=== PATIENT | female | born 1980 | race Caucasian/White ===

== ENCOUNTER 2022-06-06 13:57 | Emergency (ER) | payer BC ==
[2022-06-06] MEDS ORDERED: HYDROMORPHONE HCL 1 MG/ML INJ ONE ×3 (15:07→18:24)
[2022-06-06] MEDS ORDERED: FAMOTIDINE 20 MG/2 ML VIAL IV ONE (15:08)
[2022-06-06] MEDS ORDERED: ONDANSETRON 4 MG/2 ML VIAL ONE (15:08)
[2022-06-06] MEDS ORDERED: NA CHLORIDE 0.9% 1,000 ML ONE ×3 (15:08→20:14)
[2022-06-06 15:35] LABS: Absolute Lymphocytes (CBC) 1.2 K/uL (0.7-4.9); Hematocrit 43.1 % (36.0-45.0); Lymphocytes % 9.3 % (15.3-44.8); MCV 84.5 fL (80-100); MPV 7.3 fL (7.6-11.3)
[2022-06-06 16:46] LABS: Albumin 2.8 g/dL (3.4-5.0); Bilirubin Total 0.4 mg/dL (0.2-1.0); Protein, Total 6.3 g/dL (6.4-8.2)
[2022-06-06 16:47] LABS: Magnesium 1.8 mg/dL (1.8-2.4); Potassium 3.7 mmol/L (3.5-5.1)
[2022-06-06 17:17] LABS: Urine Blood Negative (Negative); Urine Glucose Negative (Negative); Urine Protein Negative (Negative); Urine Specific Gravity 1.025 (1.005-1.030)
[2022-06-06 17:35] LABS: Urine Bacteria NONE SEEN /HPF (<20); Urine Mucus 1+ /HPF (NONE SEEN); Urine RBC <5 /HPF (NONE SEEN)
--- NOTE | 2022-06-06 17:42 | RAD REPORT ---
EXAM DESCRIPTION: CT - Abdomen Pelvis W Contrast - 06/06/2022 5:19 pm CLINICAL HISTORY: Abdominal pain, acute, nonlocalized, history of recent hospitalization at outside facility for small bowel obstruction, history of gastric sleeve for bypass, history of hernia repair, history of hysterectomy COMPARISON: No comparisons TECHNIQUE: Biphasic, helical CT imaging of the abdomen and pelvis was performed following 100 ml non -ionic IV contrast. No oral contrast administered. All CT scans are performed using dose optimization technique as appropriate and may include automated exposure control or mA/KV adjustment according to patient size. FINDINGS: Patchy airspace opacities are present in the midportion of the left lower lobe. No pneumot horax or pleural effusion. No cardiomegaly or pericardial effusion. Diffuse fatty infiltration pattern of the liver is present with no focal or suspicious liver lesion. No portal vein abnormality. No spleen or pancreatic abnormality. Symmetric renal function is seen with no hydronephrosis or suspicious renal mass. No pyelonephritis o r acute parenchymal process. Urinary bladder is fully contracted. Uterus is absent. Ovaries are absen t or atrophic. No TRANSPORTATION SUPERVISOR finding seen. No adrenal abnormalities. Gastric surgical changes are noted with no gastric wall thickening or mass. No dilation of the duoden um. At the ligament is Treitz there is onset can rapid dilatation of small mild. Dilated small bowel loops breech 6.5 cm in diameter. In the distal ileum there is a 12 centimeter small bowel dilatation but is a summation of 2 small bowel loops with [id number] anastomosis. Surgical staple lines are pr esent at this site. There is an abrupt transition at the distal ileum in the central mid abdomen. The re are multiple small mesenteric lymph nodes present. A central mesenteric mass is not identified. Ad hesion or internal hernia would be most likely. The ileum is decompressed. Colon is decompressed. The re is diverticulosis without diverticulitis. No free air, pneumatosis, free fluid or focal inflammatory stranding. No bulky lymphadenopathy or m ass. Abdominal wall postsurgical changes are present. No recurrent abdominal wall hernia identifiable . No suspicious bony findings. No vascular abnormality suspected. IMPRESSION: Patient has a very pronounced small bowel obstruction terminating at the distal jejunum, central abdomen. No obstructing mass identified. Adhesion or internal hernia would be most likely. The ileum and colon are decompressed. There are multiple central mesenteric lymph nodes. No free air, pneumatosis or findings of perforation. Bowel ischemia is not suspected. Patchy airspace opacification in the right lower lobe suspicious for pneumonia. This is only partiall y imaged.
--- NOTE | 2022-06-06 18:09 | ER ---
Nurse's Notes [facility] Name: Prabha Booker Age: 42 yrs Sex: Female : 1980 Arrival Date: 06/06/2022 Time: 14:03 Bed 20 Private MD: Ben Cotto S Diagnosis: Small Bowel Obstruction Presentation: 06/06 14:39 Chief complaint: Patient states: PT ADMIT TO [facility] LAST SATURDAY WITH SBO, LEFT bp AMA Y/D, NOW WITH SAME S/S. Coronavirus screen: At this time, the client does not indicate any symptoms associated with coronavirus-19. Ebola Screen: No symptoms or risks identified at this time. Initial Sepsis Screen: Does the patient meet any 2 criteria? HR > 90 bpm. No. Patient's initial sepsis screen is negative. Does the patient have a suspected source of infection? No. Patient's initial sepsis screen is negative. Risk Assessment: Do you want to hurt yourself or someone else? Patient reports no desire to harm self or others. Onset of symptoms is unknown. 14:39 Method Of Arrival: Wheelchair bp 14:39 Acuity: GALINDO 3 bp Triage Assessment: 14:40 General: Appears distressed, uncomfortable, obese, Behavior is cooperative, appropriate bp for age, anxious. Pain: Complains of pain in abdomen. EENT: No deficits noted. Neuro: No deficits noted. Cardiovascular: No deficits noted. Respiratory: No deficits noted. GI: Reports lower abdominal pain, nausea, vomiting. : No signs and/or symptoms were reported regarding the genitourinary system. Derm: No deficits noted. Musculoskeletal: No deficits noted. 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 - Social history:: Smoking status: Patient denies any tobacco usage or history of. Screenin:45 Abuse screen: Denies threats or abuse. Denies injuries from another. Nutritional bp screening: No deficits noted. Tuberculosis screening: No symptoms or risk factors identified. Fall Risk None identified. Assessment: 14:45 General: SEE TRIAGE NOTE. bp 15:30 Reassessment: Patient and/or family updated on plan of care and expected duration. Pain bp level reassessed. Patient states symptoms have improved. 16:30 Reassessment: No changes from previously documented assessment. Patient and/or family bp updated on plan of care and expected duration. Pain level reassessed. 18:00 Reassessment: PT RETURNED FROM CT. bp 18:30 Reassessment: PT REFUSING NGT. TRANSFER INITIATED Patient states symptoms have improved.bp 06/07 01:17 GI: Bowel sounds present X 4 quads. Abd is soft. kd3 Vital Signs: 06/06 14:39 BP 126 / 88; Pulse 100; Resp 16; Temp 97; Pulse Ox 100% ; Weight 83.46 kg; Height 5 ft. bp 7 in. (170.18 cm); 15:30 BP 128 / 80; Pulse 81; Resp 16; Pulse Ox 99% ; bp 16:30 BP 131 / 83; Pulse 93; Resp 16; Pulse Ox 96% ; bp 17:30 BP 136 / 90; Pulse 90; Resp 16; Pulse Ox 98% ; bp 18:30 BP 136 / 75; Pulse 86; Resp 16; Pulse Ox 96% ; bp 14:39 Body Mass Index 28.82 (83.46 kg, 170.18 cm) bp ED Course: 14:03 Patient arrived in ED. mr 14:04 Ben Cotto MD is Private Physician. mr 14:24 Jason Guerrero PA is PHCP. cp 14:24 Jason Gallagher MD is Attending Physician. cp 14:39 Kolby Cortés, TERRANCE is Primary Nurse. bp 14:40 Triage completed. bp 14:40 Arm band placed on. bp 14:45 Patient has correct armband on for positive identification. Bed in low position. Call bp light in reach. Side rails up X2. Adult w/ patient. 15:20 Inserted saline lock: 20 gauge in right antecubital area, using aseptic technique. bp Blood collected. 17:21 CT Abd/Pelvis - IV Contrast Only In Process Unspecified. EDMS 18:35 XRAY Chest (1 view) In Process Unspecified. EDMS 19:59 Connected Jason BENSON with the Doctor from [facility]. mw2 20:23 initiated a transfer with Jessica from [facility]. mw2 21:00 connected Jason BENSON with Dr. Sheth from [facility]. mw2 21:47 Attending Physician role handed off by Jason Gallagher MD ms3 21:47 Cody Vallejo DO is Attending Physician. ms3 22:02 Connected Jason BENSON with Dr. Pollard from [facility]. mw2 22:49 administrative approval given by Jessica Lu/ patient has been accepted to [address] bed 2161/ Dr. Pollard accepted the patient in transfer/report to be called to [phone]. 23:35 Missed attempt(s): 20 gauge Bleeding controlled, band aid applied, catheter tip intact. oe 23:57 Inserted saline lock: 22 gauge in right hand, using aseptic technique. oe 06/07 01:17 No provider procedures requiring assistance completed. Patient transferred, IV remains kd3 in place. Administered Medications: 06/06 15:19 Drug: NS 0.9% 1000 ml Route: IV; Rate: 1 bolus; Site: right antecubital; bp 22:00 Follow up: IV Status: Completed infusion kd3 15:19 Drug: Zofran (Ondansetron) 4 mg Route: IVP; Site: right antecubital; bp 18:02 Follow up: Response: No adverse reaction bp 22:00 Follow up: Response: No adverse reaction kd3 15:19 Drug: Pepcid (famotidine) 20 mg Route: IVP; Site: right antecubital; bp 18:02 Follow up: Response: No adverse reaction bp 22:00 Follow up: Response: No adverse reaction kd3 15:19 Drug: Dilaudid (HYDROmorphone) 1 mg Route: IVP; Site: right antecubital; bp 18:02 Follow up: Response: Pain is decreased bp 16:30 Drug: Dilaudid (HYDROmorphone) 1 mg Route: IVP; Site: right antecubital; bp 18:02 Follow up: Response: No adverse reaction bp 18:30 Drug: NS 0.9% 1000 ml Route: IV; Rate: 1 bolus; Site: right antecubital; bp 20:08 Follow up: IV Status: Completed infusion kd3 21:59 Follow up: IV Status: Completed infusion kd3 18:30 Drug: Dilaudid (HYDROmorphone) 1 mg Route: IVP; Site: right antecubital; bp 21:59 Follow up: Response: No adverse reaction kd3 20:06 Drug: Phenergan (promethazine) 12.5 mg Route: IVP; Site: right antecubital; kd3 21:59 Follow up: Response: No adverse reaction kd3 20:06 Drug: Zosyn (piperacillin-tazobactam) 3.375 grams Route: IVPB; Infused Over: 60 mins; kd3 Site: right antecubital; 21:59 Follow up: IV Status: Completed infusion kd3 20:08 Drug: NS 0.9% 1000 ml Route: IV; Rate: 100 ml/hr; Site: right antecubital; kd3 21:59 Follow up: IV Status: Completed infusion kd3 21:59 Drug: Dilaudid (HYDROmorphone) 1 mg Route: IVP; Site: right antecubital; kd3 06/07 01:17 Follow up: Response: No adverse reaction kd3 06/06 21:59 Drug: Phenergan (promethazine) 12.5 mg Route: IVP; Site: right antecubital; kd3 06/07 01:17 Follow up: Response: No adverse reaction kd3 00:24 Drug: Dilaudid (HYDROmorphone) 1 mg Route: IVP; Site: right hand; kd3 01:17 Follow up: Response: No adverse reaction kd3 01:16 Drug: Phenergan (promethazine) 12.5 mg Route: IVP; Site: right hand; kd3 01:16 Follow up: Response: No adverse reaction kd3 Medication: 06/06 14:45 VIS not applicable for this client. bp Outcome: 18:09 ER care complete, transfer ordered by MD. holden 06/07 01:18 Transferred by ground EMS kd3 Condition: stable Discharge instructions given to patient, Instructed on the need for transfer, Demonstrated understanding of instructions. 01:19 Patient left the ED. kd3 Signatures: Dispatcher [employer] EDMS Osullivan, Apryl mr Jason Guerrero PA PA cp Espinosa, Orlando oe Peltier, Brian, RN RN bp Martinez Martinez mw2 Cody Vallejo DO DO ms3 Amber Mackenzie, TERRANCE RN kd3
--- NOTE | 2022-06-06 18:09 | EDPHYS ---
Physician Documentation [facility] Name: Prabha Booker Age: 42 yrs Sex: Female : 1980 Arrival Date: 06/06/2022 Time: 14:03 Bed 20 Private MD: Ben Cotto S ED Physician Cody Vallejo HPI: 06/06 15:00 This 42 yrs old Female presents to ER via Wheelchair with complaints of Abdominal Pain, cp Vomiting. 15:00 The patient presents with abdominal pain mid and lower abdomen. cp 15:00 Onset: The symptoms/episode began/occurred last week, has continued. cp 15:00 The symptoms do not radiate. Associated signs and symptoms: Pertinent positives: nausea cp and vomiting, loose stools, Pertinent negatives: chest pain, constipation, fever, vomiting blood. The symptoms are described as constant. 15:00 Patient is a 42-year-old female who presents to the emergency department with cp complaints of abdominal pain and nausea and vomiting. Patient reports symptoms started last week and that she was seen and evaluated at [facility], was admitted this past Saturday up until yesterday. Patient reports she left the hospital yesterday due to issues with her care and staff and the feeling that she was not getting any better after having an NG tube placed to relieve a small bowel obstruction. Patient presents to our emergency department with complaints of continued abdominal pain nausea and vomiting. Patient reports a history of multiple abdominal surgeries to include hernia repair with mesh that was later removed, total hysterectomy, and gastric sleeve surgery. 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 - Social history:: Smoking status: Patient denies any tobacco usage or history of. ROS: 15:05 Constitutional: Negative for body aches, chills, fever, poor PO intake. cp 15:05 Eyes: Negative for injury, pain, redness, and discharge. cp 15:05 Cardiovascular: Negative for chest pain, palpitations. 15:05 Respiratory: Negative for cough, shortness of breath, wheezing. 15:05 Abdomen/GI: Positive for abdominal pain, nausea and vomiting, loose stools, Negative for diarrhea, constipation. 15:05 Neuro: Negative for altered mental status, dizziness, headache, numbness, weakness. cp 15:05 ENT: Negative for drainage from ear(s), ear pain, sore throat, difficulty swallowing, cp difficulty handling secretions. 15:05 : Negative for urinary symptoms. 15:05 All other systems are negative. Exam: 15:10 Head/Face: Normocephalic, atraumatic. cp 15:10 Constitutional: The patient appears in no acute distress, alert, awake, non-toxic, well developed, well nourished, uncomfortable. 15:10 Eyes: Periorbital structures: appear normal, Conjunctiva: normal, no exudate, no injection, Sclera: no appreciated abnormality, Lids and lashes: appear normal, bilaterally. 15:10 ENT: External ear(s): are unremarkable, Nose: is normal, Mouth: Lips: moist, Oral mucosa: moist, Posterior pharynx: Airway: no evidence of obstruction, patent. 15:10 Neck: ROM/movement: is normal, is supple, without pain, no range of motions limitations, no nuchal rigidity. 15:10 Chest/axilla: Inspection: normal, Palpation: is normal, no crepitus, no tenderness. 15:10 Cardiovascular: Rate: tachycardic, Rhythm: regular, Edema: is not appreciated, JVD: is not appreciated. 15:10 Respiratory: the patient does not display signs of respiratory distress, Respirations: normal, no use of accessory muscles, no retractions, labored breathing, is not present, Breath sounds: are clear throughout, no decreased breath sounds, no stridor, no wheezing. 15:10 Abdomen/GI: Inspection: distension, that is mild, in the abdomen diffusely, Bowel sounds: active, all quadrants, Palpation: soft, in all quadrants, severe abdominal tenderness, in the right lower quadrant and left lower quadrant, rebound tenderness, is not appreciated, voluntary guarding, is elicited in the right lower quadrant and left lower quadrant. Vital Signs: 14:39 BP 126 / 88; Pulse 100; Resp 16; Temp 97; Pulse Ox 100% ; Weight 83.46 kg; Height 5 ft. bp 7 in. (170.18 cm); 15:30 BP 128 / 80; Pulse 81; Resp 16; Pulse Ox 99% ; bp 16:30 BP 131 / 83; Pulse 93; Resp 16; Pulse Ox 96% ; bp 17:30 BP 136 / 90; Pulse 90; Resp 16; Pulse Ox 98% ; bp 18:30 BP 136 / 75; Pulse 86; Resp 16; Pulse Ox 96% ; bp 14:39 Body Mass Index 28.82 (83.46 kg, 170.18 cm) bp MDM: 14:25 Patient medically screened. [facility] 17:46 Physician consultation: Fidel Sánchez MD was called at 17:43, was contacted at 17:43, regarding consult, patient's condition, will be unavailable for consult. 18:00 Data reviewed: vital signs, nurses notes, lab test result(s), radiologic studies, CT scan, plain films. 18:00 Test interpretation: by ED physician or midlevel provider: plain radiologic studies. Counseling: I had a detailed discussion with the patient and/or guardian regarding: the historical points, exam findings, and any diagnostic results supporting the discharge/admit diagnosis, lab results, radiology results, Patient requesting transfer to [facility]. 20:22 Physician consultation: was contacted at 20:15, regarding regarding transfer, to [facility]. consult with DR Hughes, general surgeon, declines transfer at this time. 20:23 Physician consultation: Nic Carlin MD was contacted at 20:20, regarding consult, patient's condition, after a discussion of the case, a recommendation for transfer for higher level of care is made, due to patient's history of multiple abdominal surgeries. 21:05 Physician consultation: was contacted at 21:05, regarding regarding transfer, to [facility]. spoke with DR Sheth who declines transfer at this time. 21:47 ED course: [address] Rao and Dr Carlin. Dr Rao agrees with ms3 consult. 23:00 Physician consultation: was contacted at 22:10, regarding regarding transfer, to [facility]. accepting physician will be DR Pollard. 06/06 14:47 Order name: CBC with Diff; Complete Time: 15:48 cp 06/06 15:48 Interpretation: Normal except: RBC 5.10; WBC 13.4; RDW 16.1; MPV 7.3; PRAMOD% 80.7; LYM% cp 9.3; NEUT A 10.8. 06/06 14:47 Order name: CMP; Complete Time: 16:48 cp 06/06 16:48 Interpretation: Normal except: CL 112; CO2 19; CRE 0.42; ALK 123; CA 7.4; TP 6.3; ALB cp 2.8; A/G 0.8. 06/06 14:47 Order name: Lipase; Complete Time: 16:48 cp 06/06 14:47 Order name: Urine Microscopic Only; Complete Time: 17:47 cp 06/06 14:47 Order name: Magnesium; Complete Time: 16:48 06/06 14:47 Order name: Phosphorus; Complete Time: 16:48 cp 06/06 15:09 Order name: COVID-19 SARS RT PCR (Document "Date of Onset" if Symptomatic); Complete cp Time: 18:46 06/06 15:19 Order name: CT Abd/Pelvis - IV Contrast Only; Complete Time: 17:47 cp 06/06 17:17 Order name: Urine Dipstick-Ancillary; Complete Time: 17:47 EDMS 06/06 22:12 Order name: Lactate 06/06 22:14 Order name: Procalcitonin 06/06 22:14 Order name: Blood Culture Adult (2) 06/06 17:50 Order name: XRAY Chest (1 view); Complete Time: 18:46 06/06 21:05 Interpretation: Report review. 06/06 14:47 Order name: IV Saline Lock; Complete Time: 15:19 cp 06/06 14:47 Order name: Labs collected and sent; Complete Time: 15:19 cp 06/06 14:47 Order name: Urine Dipstick-Ancillary (obtain specimen); Complete Time: 17:27 cp Administered Medications: 15:19 Drug: NS 0.9% 1000 ml Route: IV; Rate: 1 bolus; Site: right antecubital; bp 22:00 Follow up: IV Status: Completed infusion kd3 15:19 Drug: Zofran (Ondansetron) 4 mg Route: IVP; Site: right antecubital; bp 18:02 Follow up: Response: No adverse reaction bp 22:00 Follow up: Response: No adverse reaction kd3 15:19 Drug: Pepcid (famotidine) 20 mg Route: IVP; Site: right antecubital; bp 18:02 Follow up: Response: No adverse reaction bp 22:00 Follow up: Response: No adverse reaction kd3 15:19 Drug: Dilaudid (HYDROmorphone) 1 mg Route: IVP; Site: right antecubital; bp 18:02 Follow up: Response: Pain is decreased bp 16:30 Drug: Dilaudid (HYDROmorphone) 1 mg Route: IVP; Site: right antecubital; bp 18:02 Follow up: Response: No adverse reaction bp 18:30 Drug: NS 0.9% 1000 ml Route: IV; Rate: 1 bolus; Site: right antecubital; bp 20:08 Follow up: IV Status: Completed infusion kd3 21:59 Follow up: IV Status: Completed infusion kd3 18:30 Drug: Dilaudid (HYDROmorphone) 1 mg Route: IVP; Site: right antecubital; bp 21:59 Follow up: Response: No adverse reaction kd3 20:06 Drug: Phenergan (promethazine) 12.5 mg Route: IVP; Site: right antecubital; kd3 21:59 Follow up: Response: No adverse reaction kd3 20:06 Drug: Zosyn (piperacillin-tazobactam) 3.375 grams Route: IVPB; Infused Over: 60 mins; kd3 Site: right antecubital; 21:59 Follow up: IV Status: Completed infusion kd3 20:08 Drug: NS 0.9% 1000 ml Route: IV; Rate: 100 ml/hr; Site: right antecubital; kd3 21:59 Follow up: IV Status: Completed infusion kd3 21:59 Drug: Dilaudid (HYDROmorphone) 1 mg Route: IVP; Site: right antecubital; kd3 06/07 01:17 Follow up: Response: No adverse reaction kd3 06/06 21:59 Drug: Phenergan (promethazine) 12.5 mg Route: IVP; Site: right antecubital; kd3 06/07 01:17 Follow up: Response: No adverse reaction kd3 00:24 Drug: Dilaudid (HYDROmorphone) 1 mg Route: IVP; Site: right hand; kd3 01:17 Follow up: Response: No adverse reaction kd3 01:16 Drug: Phenergan (promethazine) 12.5 mg Route: IVP; Site: right hand; kd3 01:16 Follow up: Response: No adverse reaction kd3 Disposition: 03:57 Co-signature as Attending Physician, Cody SOTO was immediately available on-site ms3 in the Emergency Department for consultation in the care of the patient.. Disposition Summary: 06/06/22 18:09 Transfer Ordered Transfer Location: [facility] cp Reason: Higher level of care cp Condition: Stable cp Problem: an ongoing problem cp Symptoms: have improved cp Accepting Physician: DR Pollard(06/07/22 01:19) kd3 Diagnosis - Small Bowel Obstruction cp Forms: - Medication Reconciliation Form cp - SBAR form cp Signatures: Dispatcher [employer] EDMS Jason Gallagher MD MD cha Page, Corey, PA PA Kolby Paulino, RN RN Cody Dean DO DO ms3 Amber Mackenzie RN RN kd3 Corrections: (The following items were deleted from the chart) 06/06 17:27 14:47 Urine Test ordered. cp bp 18:38 18:00 NG Tube ordered. cp bp 19:55 06/05 15:05 Constitutional: Negative for body aches, chills, fever, poor PO intake, cp cp 06/06 20:25 06/05 15:05 Cardiovascular: Negative for chest pain, palpitations, cp cp 06/06 20:25 07 15:05 Respiratory: Negative for cough, shortness of breath, wheezing, cp cp 06/06 20:25 07 15:05 Abdomen/GI: Positive for abdominal pain, nausea and vomiting, loose stools, cp Negative for diarrhea, constipation, cp 06/06 20:25 06/05 15:05 Eyes: Negative for injury, pain, redness, and discharge, cp cp 06/06 22:16 18:01 Abdomen 1 View (KUB)+[id number].[email or web address].[email or web address] ordered. EDMS EDMS 22:54 18:09 Doctor cp cp 06/07 01:19 06/06 22:54 DR Pollard cp kd3 06/07 22:43 06/05 15:10 Constitutional: The patient appears in no acute distress, alert, awake, cp non-toxic, well developed, well nourished, uncomfortable, cp 06/07 22:43 06/05 15:10 Head/Face: Normocephalic, atraumatic. cp cp 06/07 22:06/05 15:10 Eyes: Periorbital structures: appear normal, Conjunctiva: normal, no cp exudate, no injection, Sclera: no appreciated abnormality, Lids and lashes: appear normal, bilaterally, cp 06/07 22:06/05 15:10 ENT: External ear(s): are unremarkable, Nose: is normal, Mouth: Lips: cp moist, Oral mucosa: moist, Posterior pharynx: Airway: no evidence of obstruction, patent, cp 06/07 22:06/05 15:10 Neck: ROM/movement: is normal, is supple, without pain, no range of motions cp limitations, no nuchal rigidity, cp 06/07 22:06/05 15:10 Chest/axilla: Inspection: normal, Palpation: is normal, no crepitus, no cp tenderness, cp 06/07 22:06/05 15:10 Cardiovascular: Rate: tachycardic, Rhythm: regular, Edema: is not cp appreciated, JVD: is not appreciated, cp 06/07 22:06/05 15:10 Respiratory: the patient does not display signs of respiratory distress, cp Respirations: normal, no use of accessory muscles, no retractions, labored breathing, is not present, Breath sounds: are clear throughout, no decreased breath sounds, no stridor, no wheezing, cp 06/07 22:06/05 15:10 Abdomen/GI: Inspection: distension, that is mild, in the abdomen diffusely, cp Bowel sounds: active, all quadrants, Palpation: soft, in all quadrants, severe abdominal tenderness, in the right lower quadrant and left lower quadrant, rebound tenderness, is not appreciated, voluntary guarding, is elicited in the right lower quadrant and left lower quadrant, cp
--- NOTE | 2022-06-06 18:41 | RAD REPORT ---
EXAM DESCRIPTION: RAD - Chest Single View - 06/06/2022 6:33 pm CLINICAL HISTORY: vomiting COMPARISON: No recent comparison TECHNIQUE: AP portable chest image was obtained 06/06/2022 6:33 pm . FINDINGS: Lung volumes are very low. Patchy airspace opacities are present in both lung can. No o ne large area of dense consolidation seen. Heart size is prominent. Central vasculature also prominen t. All chest findings are accentuated by the very low lung volumes. No measurable pleural effusion an d no pneumothorax. No acute bony abnormality seen. No acute aortic findings suspected. IMPRESSION: Limited very shallow inspiration chest film showing heart, vasculature and lung markings are all prominent. Patchy areas of pneumonia and a mild failure or volume overload findings could be masked.
[2022-06-06] MEDS ORDERED: PROMETHAZINE INJ 25 MG/ML AMP ONE ×2 (20:01→21:54)
[2022-06-06] MEDS ORDERED: NA CHLORIDE 0.9% 100 ML ONE (20:02)
[2022-06-06] MEDS ORDERED: PIPERACIL/TAZO 3.375 GM VIAL IV ONE (20:02)
[2022-06-06] MEDS ORDERED: HYDROMORPHONE HCL 0.5 MG/0.5 ML INJ ONE (21:55)
[2022-06-06] MEDS ORDERED: LIDOCAINE 1% MPF 5 ML VIAL ONE (23:46)
[2022-06-07] MEDS ORDERED: HYDROMORPHONE HCL 1 MG/ML INJ ONE (00:28)
[2022-06-07] MEDS ORDERED: PROMETHAZINE INJ 25 MG/ML AMP ONE (01:20)
[2022-06-07 01:32] VITALS: TEMP 97
[2022-06-07 01:39] VITALS: BP 136/75; O2SAT 96
== END 2022-06-07 01:19 | disposition short-term general hospital (02) ==
LOC: ER 13:57
DX: K56.609 Unspecified intestinal obstruction, unspecified as to partial versus complete obstruction (principal); Z20.822 Contact with and (suspected) exposure to COVID-19; Z98.84 Bariatric surgery status
CPT/HCPCS: 87040 ×2; 85025; 83735; 84100; 83605; 83690; 80053; 84145; 74177; 71045; 99285; U0003; Q9967; J2550 ×3; J2543; J1170 ×5; J7030 ×3; J2405; J3490; 81003; 81015

== ENCOUNTER 2022-07-13 21:07 | Emergency (ER) | payer BC ==
--- OUTSIDE RECORDS SUMMARY | 2022-07-13 21:15 | XMS REPORT | Continuity of Care Document ---
:1980 Author Organization [facility] t Address [address] [place] [address] [address]. [address] [place] [address] Care Team Providers Name Role Phone Ben Cotto MD Primary Care Physician MARSHALL DOWD Attending Clinician Unavailable [facility] Attending Clinician Unavailable Unknown, Attending Attending Clinician Unavailable Marshall Bar Attending Clinician Sita Koehler Attending Clinician SITA ABBASI Attending Clinician Unavailable Ben Cotto MD Attending Clinician JIM GÓMEZ Attending Clinician Unavailable VIMAL BARAHONA Attending Clinician Unavailable RIGO FRANCES Attending Clinician Unavailable ARABELLA MEDINA Admitting Clinician Unavailable Payers Payer Name Policy Type Policy Number Effective Date Expiration Date S david [employer] [place] - [id number] 2022 00:00:00 OUT OF STATE OUT OF STATE [id number] 2022 00:00:00 BCBS - PPO - BCBS BCBS OS [id number] 2022 00:00:00 POS/PPO/EPO Problems Condition Condition Condition Status Onset Resolution Last Treating Co mments Source Name Details Category Date Date Treatment Clinician Date Generalize Generalize Disease Active U nivers d d 7-09 [place] abdominal [place] Obesity Obesity Disease Active Univers (BMI (BMI 7-09 ity of 30-39.9) 30-39.9) 00:00: [place] [facility] Infection Infection Disease Active Uni vers of canine of canine 4-29 ity of space space 00:00: Medical Branch Low Low Disease Active 2018-11 Univers vitamin vitamin 1-04 ity of B12 level B12 level 00:[place] Other Other Disease Active 2018-11 Univers dietary dietary 0-07 ity of vitamin vitamin 00:00: [place] B12 B12 00 Medical deficiency deficiency Br anch anemia anemia Elevated Elevated Disease Active 2018-11 Unive rs blood blood 0-07 ity of pressure pressure 00:00: [place] reading reading Medical Branch Vertigo Vertigo Disease Active 2018-11 Univers 0-07 ity of 00:00: [place] [facility] Encounter Encounter Disease Active Uni vers for for 3-27 ity of cosmetic cosmetic 00:00: [place] surgery surgery Medical Branch Lipodystro Lipodystro Disease Active U nivers phy phy 3-26 ity of 00:00: [place] [facility] Ventral Ventral Disease Active Univers hernia, hernia, 4-19 ity of recurrent recurrent 00:00[place] Endometrio Endometrio Disease Active U nivers sis sis 4-14 ity of 00:00: [place] [facility] Diarrhea Diarrhea Disease Active Unive rs 3-29 ity of 00:00: [place] 00 Medical Branch Anxiety Anxiety Disease Active 2014-11 Univers 2-08 ity of 00:00: [place] 00 Medical Branch Allergic Allergic Disease Active 2014-11 Unive rs rhinitis rhinitis 2-08 ity of 00:00: [place] 00 Medical Branch Chronic Chronic Disease Active 2014-11 Univers pain pain 2-08 ity of 00:00: [place] 00 Medical Branch Edema Edema Disease Active 2014-11 Univers 2-08 ity of 00:00: [place] 00 Medical Branch Upper Upper Disease Active 2014-11 Univers respirator respirator 2-08 it y of y y 00:00: [place] infection infection 00 [facility] Branch Malaise Malaise Disease Active 2014-11 Univers 2-08 ity of 00:00: [place] 00 Medical Branch Fatigue Fatigue Disease Active 2014-11 Univers 2-08 ity of 00:00: [place] 00 Medical Branch Attention Attention Disease Active 2014-11 Uni vers deficit deficit 0-09 ity of disorder disorder 00:00: [place] (ADD) (ADD) 00 Medical without without Branch hyperactiv hyperactiv ity ity 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 0-09 it y of 00:00: [place] 00 Medical Branch Adnexal Adnexal Disease Active Univers mass mass 4-27 ity of 00:00: [place] 00 Medical Branch Abnormal Abnormal Disease Active Unive rs uterine uterine 4-27 ity of bleeding bleeding 00:00: [place] 00 Medical Branch Dysmenorrh Dysmenorrh Disease Active U nivers ea ea 4-27 ity of 00:00: [place] 00 Medical Branch Family Family Disease Active Univers history of history of 4-27 it y of breast breast 00:00: [place] cancer in cancer in 00 [facility] first first Branch degree degree relative relative Morbid Morbid Disease Active Univers obesity obesity 4-27 ity of with BMI with BMI 00:00: [place] of of 00 Medical 50.0-59.9, 50.0-59.9, Br anch adult adult Allergies, Adverse Reactions, Alerts Allergy Allergy Status Severity Reaction(s) Onset Inactive Treating Comm ents Source Name Type Date Date Clinician Latex Propensi Active [facility] ty to 8-02 College adverse 00:00: of reaction 00 Medicin s to e substanc e ADHESIVE Allergy [facility] LATEX Allergy [facility] Latex Propensi Active Unknown - Unive rs ty to See comments 7-14 ity of adverse 00:00: [place] reaction 00 Medical s Branch LATEX DRUG Active Unknown-Cmnt Univ ers INGREDI 7-14 ity of 00:00: [place] 00 Medical Branch Adhesive Propensi Active Unknown - Rash, Uni vers ty to See comments 3-29 whelps ity of adverse 00:00: [place] reaction 00 Medical s Branch ADHESIVE DRUG Active Med Unknown-Cmnt Un dickson TAPE-STEPHANIE 3-29 ity of ICONES 00:00: [place] 00 Medical Branch ADHESIVE Drug Active Unknown-Cmnt Un dickson Class 3-29 ity of 00:00: [place] 00 Medical Branch Adhesive Propensi Active Unknown - Rash, Uni vers Tape-Stephanie ty to See comments 3-29 whelpsBli ity of icones adverse 00:00: sters, [place] reaction 00 scar Medical s Branch Social History Social Habit Start Date Stop Date Quantity Comments Source History SDFL University o f Alcohol Frequency [facility] edical Branch History [facility] University o f Alcohol Std [place] [facility] Drinks Branch History [facility] o f Alcohol Binge [place] [facility] [place] Exposure to 2022-06-25 2022-07-05 Not sure [facility] SARS-CoV-2 00:00:00 14:25:00 [facility] (event) Branch Tobacco use and 2022-07-02 2022-07-02 Smokeless tobacco Un iversity of exposure 00:00:00 00:00:00 non-user [facility] Alcohol intake 2022-06-26 2022-06-26 Lifetime [facility] Col lege of 00:00:00 00:00:00 non-drinker Medicine (finding) Alcohol Comment 2015-03-21 2015-03-21 once a week; Univers ity of 00:00:00 00:00:00 glass of wine [place] [facility] al Branch Sex Ass[birth year] At [birth year] [facility] Co llege of 00:00:00 00:00:00 Medicine Smoking Status Start Date Stop Date Source Never smoked tobacco [facility] [place] [facility] Medications Ordered Filled Start Stop Current Ordering Indication Dosage Frequency Signature Comments Components Source Medication Medication Date Date Medication? Clinician (SIG) Name Name HYDROcodone Yes [id number] 1{tbl} Take 1 Un dickson -acetaminop 8-08 tablet by ity of hen 10-325 00:00: mouth [place] mg tablet 00 every 4 Medical (four) Branch hours as needed for Pain (scale 4-6). Indication s: chronic pain ondansetron Yes [id number] 4mg Take 1 Univers 4 mg 8-08 tablet by ity of disintegrat 00:00: mouth [place] ing tablet 00 every 8 Medica l (eight) Branch hours as needed for Nausea and Vomiting (N/V). hydrocortis Yes [id number] Apply to Univers one 2.5 % 8-08 area(s) 2 ity o f cream 00:00: (two) [place] 00 times Medical daily as Branch needed for Rash. HYDROcodone Yes [id number] 1{tbl} Take 1 Un dickson -acetaminop 8-08 tablet by ity of hen 10-325 00:00: mouth [place] mg tablet 00 every 4 Medical (four) Branch hours as needed for Pain (scale 4-6). Indication s: chronic pain ondansetron 2021- Yes [id number] 4mg Take 1 Univers 4 mg 8-08 tablet by ity of disintegrat 00:00: mouth [place] ing tablet 00 every 8 Medica l (eight) Branch hours as needed for Nausea and Vomiting (N/V). hydrocortis 2021- Yes [id number] Apply to Univers one 2.5 % 8-08 area(s) 2 ity o f cream 00:00: (two) [place] 00 times Medical daily as Branch needed for Rash. HYDROcodone 2021- Yes [id number] 1{tbl} Take 1 Un dickson -acetaminop 8-08 tablet by ity of hen 10-325 00:00: mouth [place] mg tablet 00 every 4 Medical (four) Branch hours as needed for Pain (scale 4-6). Indication s: chronic pain ondansetron 2021- Yes [id number] 4mg Take 1 Univers 4 mg 8-08 tablet by ity of disintegrat 00:00: mouth [place] ing tablet 00 every 8 Medica l (eight) Branch hours as needed for Nausea and Vomiting (N/V). hydrocortis Yes [id number] Apply to Univers one 2.5 % 07-02 area(s) 2 ity o f cream 00:00: (two) [place] 00 times Medical daily as Branch needed for Rash. cefdinir 2021- Yes 300mg Take 300 Uni vers 300 mg 06-26 08-10 mg by ity of capsule 00:00: 04:59 mouth in [place] 00 :00 the Medical morning Branch and 300 mg in the evening. nystatin 2021- Yes [id number] Take Unive rs 100,000 06-26- 100,000 ity of unit/mL 00:00: 04:59 Units by [place] suspension 00 :00 mouth 4 Medica l (four) Branch times daily. cefdinir 2021- Yes 300mg Take 1 [facility] (OMNICEF) 06-26-10 capsule by Col lege 300 MG 00:00: 04:59 mouth two of capsule 00 :00 times Medicin daily for e 7 days. nystatin 2021- Yes [id number] Take 1 mL [facility] (MYCOSTATIN 06-26-10 by mouth Col lege ) [id number] 00:00: 04:59 four times of UNIT/ML 00 :00 daily for Medicin suspension 7 days. e alprazolam Yes TAKE ONE [facility] (XANAX) 2 7-28 (1) TABLET Mickie ege MG tablet 00:00: BY MOUTH 2 of 00 (TWO) Medicin TIMES e DAILY NEEDED FOR SLEEP OR ANXIETY. famotidine Yes TAKE 1 [facility] (PEPCID) 20 7-26 TABLET (20 Co llege MG tablet 00:00: MG TOTAL) of 00 BY MOUTH Medicin EVERY 12 e (TWELVE) HOURS FOR 30 DAYS. gabapentin Yes TAKE ONE [facility] (NEURONTIN) 7-26 (1) College 100 MG 00:00: CAPSULE(S) of capsule 00 BY MOUTH Medicin THREE e TIMES A DAY. Hydromorpho Yes 2mg Take 2 mg B aylor ne HCl 1 7-25 by mouth. Colleg e MG/ML LIQD 00:00: of 00 Medicin e ondansetron Yes DISSOLVE [facility] (ZOFRAN-ODT 7-25 ONE (1) Colle ge ) 4 mg 00:00: TABLET(S) of disintegrat 00 BY MOUTH Medi connie ing tablet EVERY SIX e HOURS NEEDED. dextroamphe Yes [id number] 30mg Take 1 Univers tamine-amph 7-05 tablet by ity of etamine 30 00:00: mouth [place] mg tablet 00 daily. Medical Branch dextroamphe Yes [id number] 30mg Take 1 Univers tamine-amph 7-05 tablet by ity of etamine 30 00:00: mouth [place] mg tablet 00 daily. Medical Branch dextroamphe Yes [id number] 30mg Take 1 Univers tamine-amph 7-05 tablet by ity of etamine 30 00:00: mouth [place] mg tablet 00 daily. Medical Branch hydrocodone Yes TAKE ONE [facility] -acetaminop 7-05 (1) College hen (NORCO) 00:00: TABLET(S) o f 10-325 MG 00 BY MOUTH Medici n per tablet EVERY FOUR e HOURS NEEDED FOR CHRONIC PAIN. HYDROcodone 2021- No [id number] 1{tbl} Take 1 U nivers -acetaminop 7-05 08-08 tablet by it y of hen 10-325 00:00: 00:00 mouth [place] mg tablet 00 :00 every 4 Medical (four) Branch hours as needed for Pain (scale 4-6). Indication s: chronic pain ALPRAZolam Yes [id number] 2mg Take 1 U nivers 2 mg tablet 3-14 tablet by ity of 00:00: mouth 2 [place] 00 (two) Medical times Branch daily as needed for Sleep or Anxiety. ALPRAZolam Yes [id number] 2mg Take 1 U nivers 2 mg tablet 3-14 tablet by ity of 00:00: mouth 2 [place] 00 (two) Medical times Branch daily as needed for Sleep or Anxiety. ALPRAZolam Yes [id number] 2mg Take 1 U nivers 2 mg tablet 3-14 tablet by ity of 00:00: mouth 2 [place] 00 (two) Medical times Branch daily as needed for Sleep or Anxiety. hydrocortis Yes [id number] Apply to Univers one 1 % 7-05 affected ity of cream 00:00: area(s) [place] 00 daily. Medical Branch hydrocortis Yes [id number] Apply to Univers one 1 % 7-05 affected ity of cream 00:00: area(s) [place] 00 daily. Medical Branch hydrocortis Yes [id number] Apply to Univers one 1 % 7-05 affected ity of cream 00:00: area(s) [place] 00 daily. Medical Branch EPINEPHrine Yes .3mg 0.3 mg by U nivers 0.3 mg/0.3 7- Intramuscu ity of mL 00:00: lar route [place] injection 00 as needed. Medi lynsey Branch EPINEPHrine Yes .3mg 0.3 mg by U nivers 0.3 mg/0.3 7-02 Intramuscu ity of mL 00:00: lar route [place] injection 00 as needed. Medi lynsey Branch EPINEPHrine Yes .3mg 0.3 mg by U nivers 0.3 mg/0.3 7-02 Intramuscu ity of mL 00:00: lar route [place] injection 00 as needed. [facility] lynsey Branch fluticasone 2018- Yes [id number] 1{puff} Inhale 1 Univers propion-myla 2-04 Puff every it y of meterol 00:00: 12 [place] (ADVAIR (twelve) Medical DISKUS) hours. Branch 250-50 mcg/dose inhalation disk fluticasone 2019- Yes [id number] 1{puff} Inhale 1 Univers propion-myla 2-04 Puff every it y of meterol 00:00: 12 [place] (ADVAIR (twelve) Medical DISKUS) hours. Branch 250-50 mcg/dose inhalation disk fluticasone 2019- Yes [id number] 1{puff} Inhale 1 Univers propion-myla 2-04 Puff every it y of meterol 00:00: 12 [place] (ADVAIR () Medical DISKUS) hours. Branch 250-50 mcg/dose inhalation disk Vital Signs Vital Name Observation Time Observation Value Comments Source Systolic blood 2022-07-05 20:08:00 115 mm[Hg] Univer sity of pressure [place] [facility] Diastolic blood 2022-07-05 20:08:00 80 mm[Hg] Unive rsity of pressure [place] [facility] Heart rate 2022-07-05 20:08:00 97 /min [facility]i [facility] [place] [facility] Body temperature 2022-07-05 20:08:00 36.72 Cindy Univ ersity of [place] [facility] Respiratory rate 2022-07-05 20:08:00 18 /min Univ ersity of [place] [facility] Body height 2022-07-05 20:08:00 170.2 cm [facility]i [facility] [place] [facility] Body weight 2022-07-05 20:08:00 96.253 kg [facility] [place] [facility] BMI 2022-07-05 20:08:00 33.24 kg/m2 [facility]i ty [facility] [place] [facility] Oxygen saturation in 2022-07-05 20:08:00 93 /min University of Arterial blood by [facility] [place] [facility] Pulse oximetry Branch Systolic blood 2022-07-05 19:43:00 115 mm[Hg] Univer sity of pressure [place] [facility] Diastolic blood 2022-07-05 19:43:00 80 mm[Hg] Unive rsity of pressure [place] [facility] Heart rate 2022-07-05 19:43:00 97 /min [facility]i ty [facility] [place] [facility] Body temperature 2022-07-05 19:43:00 36.72 Cindy Univ ersity of [place] [facility] Respiratory rate 2022-07-05 19:43:00 18 /min Univ ersity of [place] [facility] Body height 2022-07-05 19:43:00 170.2 cm [facility]i [facility] [place] [facility] Body weight 2022-07-05 19:43:00 96.253 kg [facility] [place] [facility] BMI 2022-07-05 19:43:00 33.24 kg/m2 [facility] [place] [facility] Oxygen saturation in 2022-07-05 19:43:00 93 /min University of Arterial blood by [place] [facility] lynsey Pulse oximetry Branch Systolic blood 2022-07-02 13:48:00 114 mm[Hg] Univer sity of pressure [place] [facility] Diastolic blood 2022-07-02 13:48:00 79 mm[Hg] Unive rsity of pressure [place] [facility] Heart rate 2022-07-02 13:48:00 85 /min Universi ty [facility] [place] [facility] Body weight 2022-07-02 13:48:00 94.802 kg [facility] BMI 2022-07-02 13:48:00 32.73 kg/m2 [facility] WEIGHT 2022-06-13 06:00:00 104.872 kg HEIGHT 2022-06-07 02:52:00 172.7 cm WEIGHT 2022-06-07 02:52:00 83.462 kg WEIGHT 2022-06-13 06:00:00 104.872 kg HEIGHT 2022-06-07 02:52:00 172.7 cm WEIGHT 2022-06-07 02:52:00 83.462 kg Procedures This patient has no known procedures. Plan of Care Planned Activity Planned Date Details Comments Source Future Scheduled 2022-06-26 CT ABDOMEN PELVIS W 1 Occurrences [facility] Test 13:47:04 CONTRAST [code = starting of Medicine 64855-7] 06/26/2022 until 06/26/2023 Future Scheduled 2022-06-26 COVID-19 Vaccine (#1) [facility] Test 13:44:45 [code = COVID-19 of Medicine Vaccine (#1)] Future Scheduled 2022-06-26 TETANUS SHOT (ADULT) [facility] Test 13:44:45 [code = TETANUS SHOT of Medi cine (ADULT)] Future Scheduled 2022-06-26 Human immunodeficiency [facility] Test 13:44:45 virus screening of Medicine (procedure) [code = 132044492] Future Scheduled 2022-06-26 Screening for malignant [facility] Test 13:44:45 neoplasm of cervix of Medici ne (procedure) [code = 630863377] Future Scheduled 2022-06-26 Screening for malignant [facility] Test 13:44:45 neoplasm of breast of Medici ne (procedure) [code = 234623125] Future Scheduled 2022-06-26 FLU VACCINE > 6 MONTHS B [facility] Test 13:44:45 [code = FLU VACCINE > 6 of M edicine MONTHS] Encounters Start End Encounter Admission Attending Care Care Encounter Source Date/Time Date/Time Type Type Clinicians Facility Department ID 2022-07-05 2022-07-05 Outpatient Igor DOWD [facility] [id number] Univers 14:45:00 15:10:56 MARSHALL johansen [facility] 2022-07-05 2022-07-05 Nurse Nurse, [facility] [id number] Univers 14:45:00 15:10:56 Visit Unknown, Attending HEALTH [id number] ity of Arleth Dowdpalmer DUNLAP 4.2.7.2.686 [place] DEEPTHI?BLEA [id number] [place] lazarus VANG [address] [facility] OFFICE [facility] 2022-07-05 2022-07-05 Outpatient R [facility] [id number] Univers 14:45:00 14:45:00 [id number] ity of [facility] 2022-07-05 2022-07-05 Urgent EbSita sequeira [facility] [id number] Univers 14:20:00 14:40:00 Care Unknown, Attending HEALTH [id number] ity of [facility] 4.2.7.2.686 [place] as DEEPTHI?BLEA [id number] [address] OFFICE [facility] 2022-07-05 2022-07-05 Outpatient R AYLEEN [facility] [id number] Univers 14:20:00 14:20:00 SITA [facility] [place] [facility] 2022-07-02 2022-07-02 Office Yadiel [facility] [id number] Univers 08:45:00 09:04:13 Visit [facility] [id number] it y of [place] 4.2.7.2.686 [place] as DEEPTHI?BLEA [id number] [facility] [address] [facility] OFFICE [facility] 2022-06-26 2022-06-26 Office FRANCES GÓMEZ [id number] [facility] 12:39:57 12:39:57 Visit JIM AMBULATOR 350.1.13.21 College Y 0.2.7.2.686 of [id number] [facility] 815 e 2022-06-07 2022-06-18 Inpatient ER JUN, SLE Surgery [id number] [facility] 02:15:00 16:19:00 CHIMKAMA Results Test Description Test Time Test Comments Results Result Comments Source BLOOD CULTURE 2022-06-21 03:00:12 Test Item Value Reference Range Interpretation Comme nts CULTURE (BEAKER) (test code = 1095) No growth in 5 days BLOOD [id number] 03:00:12 Test Item Value Reference Range Interpretation Comments CULTURE (BEAKER) (test No growth in 5 days code = 1095) POCT-GLUCOSE [id number] 12:09:44 Test Item Value Reference Range Interpretation Comments POC-GLUCOSE METER 103 mg/dL 70-110 : TESTED A T [facility] 6720 (BEAKER) (test code = [facility], 1538) 63012: Criminal Defense Lawyer/Techni placido ID = [id number] for SA TAN ORTIZ POCT-GLUCOSE [id number] 08:36:18 Test Item Value Reference Range Interpretation Comments POC-GLUCOSE METER 93 mg/dL 70-110 : TESTED A T [facility] 6720 (BEAKER) (test code = [facility], 1538) 27361: Criminal Defense Lawyer/Techni placido ID = [id number] for ROSEMARY OS, TAN BASIC METABOLIC [id number] 07:32:48 Test Item Value Reference Range Interpretation Comments SODIUM (BEAKER) 136 meq/L 136-145 (test code = 381) POTASSIUM (BEAKER) 4.4 meq/L 3.5-5.1 (test code = 379) CHLORIDE (BEAKER) 104 meq/L 98-107 (test code = 382) CO2 (BEAKER) (test 27 meq/L 22-29 code = 355) BLOOD UREA NITROGEN 8 mg/dL 7-21 (BEAKER) (test code = 354) CREATININE (BEAKER) 0.48 mg/dL 0.57-1.25 L (test code = 358) GLUCOSE RANDOM 83 mg/dL 70-105 (BEAKER) (test code = 652) CALCIUM (BEAKER) 7.8 mg/dL 8.4-10.2 L (test code = 697) EGFR (BEAKER) (test 143 mL/min/1.73 ESTIM ATED GFR IS code = 1092) sq m NOT ACCURATE CREATININE CLEARANCE IN PREDICTING GLOMERULAR FILTRATION RATE . ESTIMATED GFR I S NOT APPLICABLE FOR DIALYSIS PATIEN TS. Criminal Defense Lawyer ID - PIAYA [id number] 07:31:46 Test Item Value Reference Range Interpretation Comments PHOSPHORUS (BEAKER) (test code = 4.4 mg/dL 2.3-4.7 604) Criminal Defense Lawyer ID - SARAH [id number] 07:31:45 Test Item Value Reference Range Interpretation Comments MAGNESIUM (BEAKER) (test code = 1.5 mg/dL 1.6-2.6 L 627) Criminal Defense Lawyer ID Mike SMITH LCBC W/PLT COUNT & AUTO [id number] 05:57:06 Test Item Value Reference Range Interpretation Comments WHITE BLOOD CELL COUNT (BEAKER) 14.9 K/ L 3.5-10.5 H (test code = 775) RED BLOOD CELL COUNT (BEAKER) 3.62 M/ L 3.93-5.22 L (test code = 761) HEMOGLOBIN (BEAKER) (test code = 9.7 GM/DL 11.2-15.7 L 410) HEMATOCRIT (BEAKER) (test code = 31.8 % 34.1-44.9 L 411) MEAN CORPUSCULAR VOLUME (BEAKER) 87.8 fL 79.4-94.8 (test code = 753) MEAN CORPUSCULAR HEMOGLOBIN 26.8 pg 25.6-32.2 (BEAKER) (test code = 751) MEAN CORPUSCULAR HEMOGLOBIN CONC 30.5 GM/DL 32.2-35.5 L (BEAKER) (test code = 752) RED CELL DISTRIBUTION WIDTH 14.5 % 11.7-14.4 H (BEAKER) (test code = 412) PLATELET COUNT (BEAKER) (test 387 K/CU MM 150-450 code = 756) MEAN PLATELET VOLUME (BEAKER) 9.4 fL 9.4-12.3 (test code = 754) NUCLEATED RED BLOOD CELLS 0 /100 WBC 0-0 (BEAKER) (test code = 413) NEUTROPHILS RELATIVE PERCENT 78 % (BEAKER) (test code = 429) LYMPHOCYTES RELATIVE PERCENT 13 % (BEAKER) (test code = 430) MONOCYTES RELATIVE PERCENT 7 % (BEAKER) (test code = 431) EOSINOPHILS RELATIVE PERCENT 1 % (BEAKER) (test code = 432) BASOPHILS RELATIVE PERCENT 0 % (BEAKER) (test code = 437) NEUTROPHILS ABSOLUTE COUNT 11.67 K/ L 1.56-6.13 H (BEAKER) (test code = 670) LYMPHOCYTES ABSOLUTE COUNT 1.90 K/ L 1.18-3.74 (BEAKER) (test code = 414) MONOCYTES ABSOLUTE COUNT (BEAKER) 1.09 K/ L 0.24-0.36 H (test code = 415) EOSINOPHILS ABSOLUTE COUNT 0.10 K/ L 0.04-0.36 (BEAKER) (test code = 416) BASOPHILS ABSOLUTE COUNT (BEAKER) 0.02 K/ L 0.01-0.08 (test code = 417) IMMATURE GRANULOCYTES-RELATIVE 1 % 0-1 PERCENT (BEAKER) (test code = 2801) SCREEN, [id number] 22:44:35 Test Item Value Reference Range Interpretation Comments TEST URINE (AKER) (test Negative Negative code = 583) POCT-GLUCOSE [id number] 22:43:22 Test Item Value Reference Range Interpretation Comments POC-GLUCOSE METER 93 mg/dL 70-110 : TESTED A T [facility] 6720 (BEAKER) (test code = [facility], [facility]) 36300: Criminal Defense Lawyer/Techni placido ID = [id number] for OLAL IA, LAMAS POCT-GLUCOSE [id number] 17:27:44 Test Item Value Reference Range Interpretation Comments POC-GLUCOSE METER 77 mg/dL 70-110 : TESTED A T [facility] 6720 (BEAKER) (test code = [facility], [facility]) 80860: Criminal Defense Lawyer/Techni placido ID = [id number] for FAIT H, STACEY POCT-GLUCOSE [id number] 13:58:13 Test Item Value Reference Range Interpretation Comments POC-GLUCOSE METER 107 mg/dL 70-110 : TESTED A T [facility] 6720 (BEAKER) (test code = [facility], [facility]) 23719: Criminal Defense Lawyer/Techni placido ID = [id number] for KO LLEADE, RITCHEL POCT-GLUCOSE [id number] 12:37:03 Test Item Value Reference Range Interpretation Comments POC-GLUCOSE METER 69 mg/dL 70-110 L : TESTED A T [facility] 6720 (BEAKER) (test code = [facility], [facility]) 19866: Criminal Defense Lawyer/Techni placido ID = [id number] for FAIT H, STACEY POCT-GLUCOSE [id number] 08:28:57 Test Item Value Reference Range Interpretation Comments POC-GLUCOSE METER 87 mg/dL 70-110 : TESTED A T [facility] 6720 (BEAKER) (test code = [facility] [place], 1538) 63775: Criminal Defense Lawyer/Techni placido ID = [id number] for STACEY LUCERO BASIC METABOLIC [id number] 06:42:08 Test Item Value Reference Range Interpretation Comments SODIUM (BEAKER) 138 meq/L 136-145 (test code = 381) POTASSIUM (BEAKER) 3.4 meq/L 3.5-5.1 L (test code = 379) CHLORIDE (BEAKER) 106 meq/L 98-107 (test code = 382) CO2 (BEAKER) (test 23 meq/L 22-29 code = 355) BLOOD UREA NITROGEN 6 mg/dL 7-21 L (BEAKER) (test code = 354) CREATININE (BEAKER) 0.47 mg/dL 0.57-1.25 L (test code = 358) GLUCOSE RANDOM 89 mg/dL 70-105 (BEAKER) (test code = 652) CALCIUM (BEAKER) 7.6 mg/dL 8.4-10.2 L (test code = 697) EGFR (BEAKER) (test 146 mL/min/1.73 ESTIM ATED GFR IS code = 1092) sq m NOT ACCURATE CREATININE CLEARANCE IN PREDICTING GLOMERULAR FILTRATION RATE . ESTIMATED GFR I S NOT APPLICABLE FOR DIALYSIS PATIEN TS. Criminal Defense Lawyer ID - SARAH [id number] 04:52:29 Test Item Value Reference Range Interpretation Comments MAGNESIUM (BEAKER) (test code = 1.5 mg/dL 1.6-2.6 L 627) Criminal Defense Lawyer ID - SARAH [id number] 04:52:29 Test Item Value Reference Range Interpretation Comments PHOSPHORUS (BEAKER) (test code = 4.4 mg/dL 2.3-4.7 604) Criminal Defense Lawyer ID - SARAH LCBC W/PLT COUNT & AUTO [id number] 04:02:49 Test Item Value Reference Range Interpretation Comments WHITE BLOOD CELL COUNT (BEAKER) 8.8 K/ L 3.5-10.5 (test code = 775) RED BLOOD CELL COUNT (BEAKER) 3.09 M/ L 3.93-5.22 L (test code = 761) HEMOGLOBIN (BEAKER) (test code = 8.5 GM/DL 11.2-15.7 L 410) HEMATOCRIT (BEAKER) (test code = 27.0 % 34.1-44.9 L 411) MEAN CORPUSCULAR VOLUME (BEAKER) 87.4 fL 79.4-94.8 (test code = 753) MEAN CORPUSCULAR HEMOGLOBIN 27.5 pg 25.6-32.2 (BEAKER) (test code = 751) MEAN CORPUSCULAR HEMOGLOBIN CONC 31.5 GM/DL 32.2-35.5 L (BEAKER) (test code = 752) RED CELL DISTRIBUTION WIDTH 14.7 % 11.7-14.4 H (BEAKER) (test code = 412) PLATELET COUNT (BEAKER) (test 271 K/CU MM 150-450 code = 756) MEAN PLATELET VOLUME (BEAKER) 9.3 fL 9.4-12.3 L (test code = 754) NUCLEATED RED BLOOD CELLS 0 /100 WBC 0-0 (BEAKER) (test code = 413) NEUTROPHILS RELATIVE PERCENT 66 % (BEAKER) (test code = 429) LYMPHOCYTES RELATIVE PERCENT 23 % (BEAKER) (test code = 430) MONOCYTES RELATIVE PERCENT 9 % (BEAKER) (test code = 431) EOSINOPHILS RELATIVE PERCENT 1 % (BEAKER) (test code = 432) BASOPHILS RELATIVE PERCENT 0 % (BEAKER) (test code = 437) NEUTROPHILS ABSOLUTE COUNT 5.80 K/ L 1.56-6.13 (BEAKER) (test code = 670) LYMPHOCYTES ABSOLUTE COUNT 2.02 K/ L 1.18-3.74 (BEAKER) (test code = 414) MONOCYTES ABSOLUTE COUNT (BEAKER) 0.83 K/ L 0.24-0.36 H (test code = 415) EOSINOPHILS ABSOLUTE COUNT 0.11 K/ L 0.04-0.36 (BEAKER) (test code = 416) BASOPHILS ABSOLUTE COUNT (BEAKER) 0.01 K/ L 0.01-0.08 (test code = 417) IMMATURE GRANULOCYTES-RELATIVE 1 % 0-1 PERCENT (BEAKER) (test code = 2801) POCT-GLUCOSE [id number] 22:29:32 Test Item Value Reference Range Interpretation Comments POC-GLUCOSE METER 121 mg/dL 70-110 H : TESTED A T [facility] [address]20 (BEAKER) (test code = [facility], 1538) 81346: Criminal Defense Lawyer/Techni placido ID = [id number] for Cherelle Holcomb POCT-GLUCOSE [id number] 17:13:32 Test Item Value Reference Range Interpretation Comments POC-GLUCOSE METER 107 mg/dL 70-110 : TESTED A T [facility] 6720 (BEAKER) (test code = [facility], 1538) 33542: Criminal Defense Lawyer/Techni placido ID = [id number] for SA NTOS, TAN POCT-GLUCOSE [id number] 13:02:16 Test Item Value Reference Range Interpretation Comments POC-GLUCOSE METER 101 mg/dL 70-110 : TESTED A T [facility] 6720 (BEAKER) (test code = [facility], 1538) 52182: Criminal Defense Lawyer/Techni placido ID = [id number] for SA NTOS, TAN POCT-GLUCOSE [id number] 09:28:30 Test Item Value Reference Range Interpretation Comments POC-GLUCOSE METER 138 mg/dL 70-110 H : TESTED A T [facility] 6720 (BEAKER) (test code = [facility], 1538) 91563: Criminal Defense Lawyer/Techni placido ID = [id number] for Co Tatyana cannon BASIC METABOLIC [id number] 07:57:11 Test Item Value Reference Range Interpretation Comments SODIUM (BEAKER) 140 meq/L 136-145 (test code = 381) POTASSIUM (BEAKER) 3.2 meq/L 3.5-5.1 L (test code = 379) CHLORIDE (BEAKER) 107 meq/L 98-107 (test code = 382) CO2 (BEAKER) (test 28 meq/L 22-29 code = 355) BLOOD UREA NITROGEN 5 mg/dL 7-21 L (BEAKER) (test code = 354) CREATININE (BEAKER) 0.46 mg/dL 0.57-1.25 L (test code = 358) GLUCOSE RANDOM 117 mg/dL 70-105 H (BEAKER) (test code = 652) CALCIUM (BEAKER) 7.5 mg/dL 8.4-10.2 L (test code = 697) EGFR (BEAKER) (test 150 mL/min/1.73 ESTIM ATED GFR IS code = 1092) sq m NOT ACCURATE CREATININE CLEARANCE IN PREDICTING GLOMERULAR FILTRATION RATE . ESTIMATED GFR I S NOT APPLICABLE FOR DIALYSIS PATIEN TS. Criminal Defense Lawyer ID - KORY [id number] 07:07:36 Test Item Value Reference Range Interpretation Comments MAGNESIUM (BEAKER) (test code = 1.6 mg/dL 1.6-2.6 627) Criminal Defense Lawyer ID - KORY [id number] 07:07:36 Test Item Value Reference Range Interpretation Comments PHOSPHORUS (BEAKER) (test code = 3.6 mg/dL 2.3-4.7 604) Criminal Defense Lawyer ID - KORY GCBC W/PLT COUNT & AUTO [id number] 06:30:03 Test Item Value Reference Range Interpretation Comments WHITE BLOOD CELL COUNT (BEAKER) 7.2 K/ L 3.5-10.5 (test code = 775) RED BLOOD CELL COUNT (BEAKER) 2.97 M/ L 3.93-5.22 L (test code = 761) HEMOGLOBIN (BEAKER) (test code = 8.2 GM/DL 11.2-15.7 L 410) HEMATOCRIT (BEAKER) (test code = 26.4 % 34.1-44.9 L 411) MEAN CORPUSCULAR VOLUME (BEAKER) 88.9 fL 79.4-94.8 (test code = 753) MEAN CORPUSCULAR HEMOGLOBIN 27.6 pg 25.6-32.2 (BEAKER) (test code = 751) MEAN CORPUSCULAR HEMOGLOBIN CONC 31.1 GM/DL 32.2-35.5 L (BEAKER) (test code = 752) RED CELL DISTRIBUTION WIDTH 14.8 % 11.7-14.4 H (BEAKER) (test code = 412) PLATELET COUNT (BEAKER) (test 241 K/CU MM 150-450 code = 756) MEAN PLATELET VOLUME (BEAKER) 9.3 fL 9.4-12.3 L (test code = 754) NUCLEATED RED BLOOD CELLS 0 /100 WBC 0-0 (BEAKER) (test code = 413) NEUTROPHILS RELATIVE PERCENT 73 % (BEAKER) (test code = 429) LYMPHOCYTES RELATIVE PERCENT 17 % (BEAKER) (test code = 430) MONOCYTES RELATIVE PERCENT 8 % (BEAKER) (test code = 431) EOSINOPHILS RELATIVE PERCENT 1 % (BEAKER) (test code = 432) BASOPHILS RELATIVE PERCENT 0 % (BEAKER) (test code = 437) NEUTROPHILS ABSOLUTE COUNT 5.26 K/ L 1.56-6.13 (BEAKER) (test code = 670) LYMPHOCYTES ABSOLUTE COUNT 1.23 K/ L 1.18-3.74 (BEAKER) (test code = 414) MONOCYTES ABSOLUTE COUNT (BEAKER) 0.58 K/ L 0.24-0.36 H (test code = 415) EOSINOPHILS ABSOLUTE COUNT 0.05 K/ L 0.04-0.36 (BEAKER) (test code = 416) BASOPHILS ABSOLUTE COUNT (BEAKER) 0.00 K/ L 0.01-0.08 L (test code = 417) IMMATURE GRANULOCYTES-RELATIVE 1 % 0-1 PERCENT (BEAKER) (test code = 2801) POCT-GLUCOSE [id number] 01:25:00 Test Item Value Reference Range Interpretation Comments POC-GLUCOSE METER 107 mg/dL 70-110 : TESTED A T [facility] 67[address] (Kaptur) (test code = [facility], 1538) 27077: Criminal Defense Lawyer/Techni placido ID = [id number] for Ng dayton Astrid C. DIFFICILE GDH [id number] 21:34:16 Test Item Value Reference Range Interpretation Comments CDT TOXIN (test code Negative Negative = [id number]) CDT GDH ANTIGEN (test Negative Negative No ind ication of code = [id number]) Clostridi um difficile infection and n o colonization. Discontinue ent marcellus isolation and t herapy. Testing performed by [employer] Rapid Cassette Assay. For GDH, published sensitivity of the assay is 98.7% compared to cytotoxicity testing. For Toxin AB, published sensitivity is 87.8% and specificity 99.4% compared to cytotoxicity testing.Verification of kit performance was done by the [facility] prior to clinical use.POCT-GLUCOSE [id number] 17:27:04 Test Item Value Reference Range Interpretation Comments POC-GLUCOSE METER 103 mg/dL 70-110 : TESTED A T [facility] [address] (Kaptur) (test code = [facility] [employer] [facility], 1538) 21832: Criminal Defense Lawyer/Techni placido ID = [id number] for SILVINA CALDERON STACEY BASIC METABOLIC [id number] 13:10:21 Test Item Value Reference Range Interpretation Comments SODIUM (BEAKER) 138 meq/L 136-145 (test code = 381) POTASSIUM (BEAKER) 3.3 meq/L 3.5-5.1 L Specimen slightly (test code = 379) hemolyzed CHLORIDE (BEAKER) 106 meq/L 98-107 (test code = 382) CO2 (BEAKER) (test 22 meq/L 22-29 code = 355) BLOOD UREA NITROGEN 6 mg/dL 7-21 L (BEAKER) (test code = 354) CREATININE (BEAKER) 0.51 mg/dL 0.57-1.25 L Specimen slightly (test code = 358) hemolyzed GLUCOSE RANDOM 102 mg/dL 70-105 (BEAKER) (test code = 652) CALCIUM (BEAKER) 7.6 mg/dL 8.4-10.2 L (test code = 697) EGFR (BEAKER) (test 133 mL/min/1.73 ESTIM ATED GFR IS code = 1092) sq m NOT ACCURATE CREATININE CLEARANCE IN PREDICTING GLOMERULAR FILTRATION RATE . ESTIMATED GFR I S NOT APPLICABLE FOR DIALYSIS PATIEN TS. Criminal Defense Lawyer ID - PIAYA LPOCT-GLUCOSE [id number] 12:38:04 Test Item Value Reference Range Interpretation Comments POC-GLUCOSE METER 98 mg/dL 70-110 : TESTED A T [facility] 6720 (BEAKER) (test code = [facility], 1538) 11682: Criminal Defense Lawyer/Techni placido ID = [id number] for STACEY LUCERO [id number] 10:24:49 Test Item Value Reference Range Interpretation Comments PHOSPHORUS (BEAKER) 3.1 mg/dL 2.3-4.7 Specimen slightly (test code = 604) hemolyzed Criminal Defense Lawyer ID - SARAH [id number] 10:24:48 Test Item Value Reference Range Interpretation Comments MAGNESIUM (BEAKER) 1.6 mg/dL 1.6-2.6 Specimen slightly (test code = 627) hemolyzed Criminal Defense Lawyer ID - PIAYA LPOCT-GLUCOSE [id number] 08:32:03 Test Item Value Reference Range Interpretation Comments POC-GLUCOSE METER 109 mg/dL 70-110 : TESTED A T [facility] 6720 (BEAKER) (test code = [facility], 1538) 50180: Criminal Defense Lawyer/Techni placido ID = [id number] for STACEY WADE CBC W/PLT COUNT & AUTO [id number] 06:07:07 Test Item Value Reference Range Interpretation Comments WHITE BLOOD CELL COUNT (BEAKER) 6.4 K/ L 3.5-10.5 (test code = 775) RED BLOOD CELL COUNT (BEAKER) 3.14 M/ L 3.93-5.22 L (test code = 761) HEMOGLOBIN (BEAKER) (test code = 8.8 GM/DL 11.2-15.7 L 410) HEMATOCRIT (BEAKER) (test code = 28.0 % 34.1-44.9 L 411) MEAN CORPUSCULAR VOLUME (BEAKER) 89.2 fL 79.4-94.8 (test code = 753) MEAN CORPUSCULAR HEMOGLOBIN 28.0 pg 25.6-32.2 (BEAKER) (test code = 751) MEAN CORPUSCULAR HEMOGLOBIN CONC 31.4 GM/DL 32.2-35.5 L (BEAKER) (test code = 752) RED CELL DISTRIBUTION WIDTH 14.8 % 11.7-14.4 H (BEAKER) (test code = 412) PLATELET COUNT (BEAKER) (test 234 K/CU MM 150-450 code = 756) MEAN PLATELET VOLUME (BEAKER) 9.6 fL 9.4-12.3 (test code = 754) NUCLEATED RED BLOOD CELLS 0 /100 WBC 0-0 (BEAKER) (test code = 413) NEUTROPHILS RELATIVE PERCENT 78 % (BEAKER) (test code = 429) LYMPHOCYTES RELATIVE PERCENT 13 % (BEAKER) (test code = 430) MONOCYTES RELATIVE PERCENT 7 % (BEAKER) (test code = 431) EOSINOPHILS RELATIVE PERCENT 1 % (BEAKER) (test code = 432) BASOPHILS RELATIVE PERCENT 0 % (BEAKER) (test code = 437) NEUTROPHILS ABSOLUTE COUNT 4.92 K/ L 1.56-6.13 (BEAKER) (test code = 670) LYMPHOCYTES ABSOLUTE COUNT 0.85 K/ L 1.18-3.74 L (BEAKER) (test code = 414) MONOCYTES ABSOLUTE COUNT (BEAKER) 0.47 K/ L 0.24-0.36 H (test code = 415) EOSINOPHILS ABSOLUTE COUNT 0.04 K/ L 0.04-0.36 (BEAKER) (test code = 416) BASOPHILS ABSOLUTE COUNT (BEAKER) 0.00 K/ L 0.01-0.08 L (test code = 417) IMMATURE GRANULOCYTES-RELATIVE 1 % 0-1 PERCENT (BEAKER) (test code = 2801) POCT-GLUCOSE [id number] 22:20:44 Test Item Value Reference Range Interpretation Comments POC-GLUCOSE METER 96 mg/dL 70-110 : TESTED A T [facility] 6720 (BEAKER) (test code = [facility], 1538) 53550: Criminal Defense Lawyer/Techni placido ID = [id number] for Jennifer Ryan POCT-GLUCOSE [id number] 17:25:39 Test Item Value Reference Range Interpretation Comments POC-GLUCOSE METER 97 mg/dL 70-110 : TESTED A T [facility] 6720 (BEAKER) (test code = [facility], 1538) 99400: Criminal Defense Lawyer/Techni placido ID = [id number] for ROSEMARY OS, TAN POCT-GLUCOSE [id number] 12:48:28 Test Item Value Reference Range Interpretation Comments POC-GLUCOSE METER 113 mg/dL 70-110 H : TESTED A T [facility] 6720 (BEAKER) (test code = [facility], 1538) 13225: Criminal Defense Lawyer/Techni placido ID = [id number] for SA NTOS, TAN POCT-GLUCOSE [id number] 08:31:45 Test Item Value Reference Range Interpretation Comments POC-GLUCOSE METER 111 mg/dL 70-110 H : TESTED A T [facility] 6720 (BEAKER) (test code = [facility], 1538) 09973: Criminal Defense Lawyer/Techni placido ID = [id number] for SA NTOS, TAN BASIC METABOLIC [id number] 06:59:39 Test Item Value Reference Range Interpretation Comments SODIUM (BEAKER) 139 meq/L 136-145 (test code = 381) POTASSIUM (BEAKER) 3.6 meq/L 3.5-5.1 (test code = 379) CHLORIDE (BEAKER) 105 meq/L 98-107 (test code = 382) CO2 (BEAKER) (test 29 meq/L 22-29 code = 355) BLOOD UREA NITROGEN 8 mg/dL 7-21 (BEAKER) (test code = 354) CREATININE (BEAKER) 0.44 mg/dL 0.57-1.25 L (test code = 358) GLUCOSE RANDOM 103 mg/dL 70-105 (BEAKER) (test code = 652) CALCIUM (BEAKER) 7.6 mg/dL 8.4-10.2 L (test code = 697) EGFR (BEAKER) (test 158 mL/min/1.73 ESTIM ATED GFR IS code = 1092) sq m NOT ACCURATE CREATININE CLEARANCE IN PREDICTING GLOMERULAR FILTRATION RATE . ESTIMATED GFR I S NOT APPLICABLE FOR DIALYSIS PATIEN TS. Criminal Defense Lawyer ID - SARAH [id number] 06:52:24 Test Item Value Reference Range Interpretation Comments PHOSPHORUS (BEAKER) (test code = 3.1 mg/dL 2.3-4.7 604) Criminal Defense Lawyer ID - SARAH [id number] 06:52:23 Test Item Value Reference Range Interpretation Comments MAGNESIUM (BEAKER) (test code = 1.6 mg/dL 1.6-2.6 627) Criminal Defense Lawyer ID - SARAH LCBC W/PLT COUNT & AUTO [id number] 05:54:55 Test Item Value Reference Range Interpretation Comments WHITE BLOOD CELL COUNT (BEAKER) 6.8 K/ L 3.5-10.5 (test code = 775) RED BLOOD CELL COUNT (BEAKER) 3.29 M/ L 3.93-5.22 L (test code = 761) HEMOGLOBIN (BEAKER) (test code = 8.9 GM/DL 11.2-15.7 L 410) HEMATOCRIT (BEAKER) (test code = 29.1 % 34.1-44.9 L 411) MEAN CORPUSCULAR VOLUME (BEAKER) 88.4 fL 79.4-94.8 (test code = 753) MEAN CORPUSCULAR HEMOGLOBIN 27.1 pg 25.6-32.2 (BEAKER) (test code = 751) MEAN CORPUSCULAR HEMOGLOBIN CONC 30.6 GM/DL 32.2-35.5 L (BEAKER) (test code = 752) RED CELL DISTRIBUTION WIDTH 14.7 % 11.7-14.4 H (BEAKER) (test code = 412) PLATELET COUNT (BEAKER) (test 253 K/CU MM 150-450 code = 756) MEAN PLATELET VOLUME (BEAKER) 9.5 fL 9.4-12.3 (test code = 754) NUCLEATED RED BLOOD CELLS 0 /100 WBC 0-0 (BEAKER) (test code = 413) NEUTROPHILS RELATIVE PERCENT 71 % (BEAKER) (test code = 429) LYMPHOCYTES RELATIVE PERCENT 19 % (BEAKER) (test code = 430) MONOCYTES RELATIVE PERCENT 8 % (BEAKER) (test code = 431) EOSINOPHILS RELATIVE PERCENT 1 % (BEAKER) (test code = 432) BASOPHILS RELATIVE PERCENT 0 % (BEAKER) (test code = 437) NEUTROPHILS ABSOLUTE COUNT 4.80 K/ L 1.56-6.13 (BEAKER) (test code = 670) LYMPHOCYTES ABSOLUTE COUNT 1.26 K/ L 1.18-3.74 (BEAKER) (test code = 414) MONOCYTES ABSOLUTE COUNT (BEAKER) 0.56 K/ L 0.24-0.36 H (test code = 415) EOSINOPHILS ABSOLUTE COUNT 0.09 K/ L 0.04-0.36 (BEAKER) (test code = 416) BASOPHILS ABSOLUTE COUNT (BEAKER) 0.01 K/ L 0.01-0.08 (test code = 417) IMMATURE GRANULOCYTES-RELATIVE 1 % 0-1 PERCENT (BEAKER) (test code = 2801) POCT-GLUCOSE [id number] 22:06:55 Test Item Value Reference Range Interpretation Comments POC-GLUCOSE METER 116 mg/dL 70-110 H : TESTED A T [facility] 6720 (BEAKER) (test code = [facility], 153) 81565: Criminal Defense Lawyer/Techni placido ID = [id number] for Jennifer Hathaway POCT-GLUCOSE [id number] 18:50:57 Test Item Value Reference Range Interpretation Comments POC-GLUCOSE METER 102 mg/dL 70-110 : TESTED A T [facility] 6720 (BEAKER) (test code = [facility], 153) 73919: Criminal Defense Lawyer/Techni placido ID = [id number] for TAN ZARATE POCT-GLUCOSE [id number] 11:35:12 Test Item Value Reference Range Interpretation Comments POC-GLUCOSE METER 121 mg/dL 70-110 H : TESTED A T [facility] 6720 (BEAKER) (test code = [facility] [place], 1538) 79058: Criminal Defense Lawyer/Techni placido ID = [id number] for TAN ZARATE SARS-COV2/RT-PCR ([facility])2022-06-13 11:11:10 Test Item Value Reference Range Interpretation Comments SARS-COV2/RT-PCR (test Negative Not Detected, Negative, code = 5085236) See external report for linked test SARS-COV-2 PERFORMING LAB [facility] (test code = 3740932) Negative result for this test determines that SARS-CoV-2 RNA was not present in the specimen above the Limit of Detection (LOD). However, Negative results do not preclude SARS-CoV-2 infection and should not be used as the sole basis for treatment or patient management decisions. Negative results must be combined with clinical observations, patient history, and epidemiological information. A false negative result may occur if a specimen is improperly collected, transported or handled. A false negative result should be considered if patient's recent exposures or clinical presentation indicate that COVID-19 (SARS-CoV-2) is likely and diagnostic tests for other causes of illness are negative. Re-testing should be considered in cases of suspected false negatives.The limit of detection for this assay is 800 copies/mL.This SARS CoV-2 test is a real-time RT-PCR test intended for the qualitative detection of nucleic acid from SARS-CoV-2 in a nasopharyngeal swab specimen collected from individuals suspected of COVID-19 by their healthcare provider.This test has not been Food and Drug Administration (FDA) cleared or approved. This is a modified version of an approved Emergency Use Authorization (EUA) and is in the process of review by the FDA. Once authorized by the FDA, the issued EUA will be effective until the declaration that circumstances exist justifying the authorization of the emergency use ofin vitro diagnostic tests for detection and/or diagnosis of COVID-19 is terminated under Section 564(b)(2) of the Act or the EUA is revoked under Section 564(g) of the Act.Fact Sheet for Healthcare Prov iders:https://www.[employer]/sites/default/files/product/documents/Fact_Sheet_HC _Yygcecurs_Rgmt_TIDP-YtF-9.pdfFact Sheet for Healthcare Patients:https://www.[employer]/sites/default/files/product/docume nts/Yamt_Zrpow_Vbfydufp_Mvkf_AKFQ-EaN-6.pdfPerforming Laboratory:[facility] [place] [address](CELLAVISION MANUAL DIFF) 2022-06-13 07:02:04 Test Item Value Reference Range Interpretation Comments NEUTROPHILS - REL 84 % (CELLAVISION)(BEAKER) (test code = 2816) LYMPHOCYTES - REL 8 % (CELLAVISION)(BEAKER) (test code = 2817) MONOCYTES - REL 7 % (CELLAVISION)(BEAKER) (test code = 2818) EOSINOPHILS - REL 1 % (CELLAVISION)(BEAKER) (test code = 2819) NEUTROPHILS - ABS 5.46 K/ul 1.56-6.13 (CELLAVISION)(BEAKER) (test code = 2830) LYMPHOCYTES - ABS 0.52 K/ul 1.18-3.74 L (CELLAVISION)(BEAKER) (test code = 2831) MONOCYTES - ABS 0.46 K/uL 0.24-0.36 H (CELLAVISION)(BEAKER) (test code = 2832) EOSINOPHILS - ABS 0.07 K/uL 0.04-0.36 (CELLAVISION)(BEAKER) (test code = 2834) TOTAL COUNTED (BEAKER) (test code = 100 1351) RBC MORPHOLOGY (BEAKER) (test code Normal = 762) WBC MORPHOLOGY (BEAKER) (test code Normal = 487) GIANT PLATELETS (BEAKER) (test code Present = 313) ARTIFACT (CELLAVISION)(BEAKER) Present (test code = 3432) PLATELET CONCENTRATION Adequate (CELLAVISION)(BEAKER) (test code = 3438) Criminal Defense Lawyer ID - gladys Jackson comments: Slide comments:CBC W/PLT COUNT & AUTO [id number] 07:02:03 Test Item Value Reference Range Interpretation Comments WHITE BLOOD CELL COUNT (BEAKER) 6.5 K/ L 3.5-10.5 (test code = 775) RED BLOOD CELL COUNT (BEAKER) 3.49 M/ L 3.93-5.22 L (test code = 761) HEMOGLOBIN (BEAKER) (test code = 9.5 GM/DL 11.2-15.7 L 410) HEMATOCRIT (BEAKER) (test code = 31.2 % 34.1-44.9 L 411) MEAN CORPUSCULAR VOLUME (BEAKER) 89.4 fL 79.4-94.8 (test code = 753) MEAN CORPUSCULAR HEMOGLOBIN 27.2 pg 25.6-32.2 (BEAKER) (test code = 751) MEAN CORPUSCULAR HEMOGLOBIN CONC 30.4 GM/DL 32.2-35.5 L (BEAKER) (test code = 752) RED CELL DISTRIBUTION WIDTH 14.7 % 11.7-14.4 H (BEAKER) (test code = 412) PLATELET COUNT (BEAKER) (test 278 K/CU MM 150-450 code = 756) MEAN PLATELET VOLUME (BEAKER) 9.3 fL 9.4-12.3 L (test code = 754) NUCLEATED RED BLOOD CELLS 0 /100 WBC 0-0 (BEAKER) (test code = 413) BASIC METABOLIC [id number] 06:46:12 Test Item Value Reference Range Interpretation Comments SODIUM (BEAKER) 135 meq/L 136-145 L (test code = 381) POTASSIUM (BEAKER) 3.8 meq/L 3.5-5.1 (test code = 379) CHLORIDE (BEAKER) 102 meq/L 98-107 (test code = 382) CO2 (BEAKER) (test 27 meq/L 22-29 code = 355) BLOOD UREA NITROGEN 10 mg/dL 7-21 (BEAKER) (test code = 354) CREATININE (BEAKER) 0.45 mg/dL 0.57-1.25 L (test code = 358) GLUCOSE RANDOM 117 mg/dL 70-105 H (BEAKER) (test code = 652) CALCIUM (BEAKER) 7.4 mg/dL 8.4-10.2 L (test code = 697) EGFR (BEAKER) (test 154 mL/min/1.73 ESTIM ATED GFR IS code = 1092) sq m NOT ACCURATE CREATININE CLEARANCE IN PREDICTING GLOMERULAR FILTRATION RATE . ESTIMATED GFR I S NOT APPLICABLE FOR DIALYSIS PATIEN TS. Criminal Defense Lawyer ID - PIAYA [id number] 05:55:45 Test Item Value Reference Range Interpretation Comments MAGNESIUM (BEAKER) (test code = 1.6 mg/dL 1.6-2.6 627) Criminal Defense Lawyer ID - PIAYA [id number] 05:55:45 Test Item Value Reference Range Interpretation Comments PHOSPHORUS (BEAKER) (test code = 2.6 mg/dL 2.3-4.7 604) Criminal Defense Lawyer ID - PIAYA LPOCT-GLUCOSE [id number] 01:10:13 Test Item Value Reference Range Interpretation Comments POC-GLUCOSE METER 117 mg/dL 70-110 H : TESTED A T [facility] 6720 (BEAKER) (test code = FRITZ Costa [facility], 1538) [address]: Criminal Defense Lawyer/Techni placido ID = [id number] for FRANCISCO JAVIER ANTUNEZ TISSUE [id number] 15:05:15Surgical Pathology Report Case: [id number] Authorizing Provider: Andrea Chandler MD Collected: 06/07/2022 03:36 PM Ordering Location: [facility] PERIOPERATIVE Received: 06/08/2022 08:19 AM SERVICES Pat hologist: Michelle Kothari MD Specimen: Omentum, OMENTAL MASS OMENTAL MASS, BIOPSY -MATURE ADIPOSE TISSUE WITH FAT NECROSIS, CHRONIC INFLAMMATION AND CALCIFICATION Signing Pathologist Direct Phone Line:[phone] signed by Michelle Kothari MD on 06/12/2022 at 3:05 [id number] obstru ctionA. Omentum.Received fresh labeled with the patient's name, accession number and "omental mass" is a 6.0 x 4.0 x 1.0 cm portion of hope-yellow, fibrofatty omentum. Sectioning reveals a 1.5 x 1.3 x 1.0 cm unilocular cyst with a smooth inner lining and focally calcified wall that exudes hope-yellow, viscous fluid. The remaining uninvolved cut surface is hope-yellow and fibrofatty. C D Area Supervisor sections are submitted in A1.MARCELINO Roldan, HT (ASCP)Performed.[facility], Department of Pathology, [address] [place] [address], [place] [address], [facility], [address] [place] [id number], [facility], [facility], [address] [place] [address], TRV W/PLT COUNT & AUTO [id number] 07:13:37 Test Item Value Reference Range Interpretation Comments WHITE BLOOD CELL COUNT (BEAKER) 8.0 K/ L 3.5-10.5 (test code = 775) RED BLOOD CELL COUNT (BEAKER) 3.46 M/ L 3.93-5.22 L (test code = 761) HEMOGLOBIN (BEAKER) (test code = 9.7 GM/DL 11.2-15.7 L 410) HEMATOCRIT (BEAKER) (test code = 31.1 % 34.1-44.9 L 411) MEAN CORPUSCULAR VOLUME (BEAKER) 89.9 fL 79.4-94.8 (test code = 753) MEAN CORPUSCULAR HEMOGLOBIN 28.0 pg 25.6-32.2 (BEAKER) (test code = 751) MEAN CORPUSCULAR HEMOGLOBIN CONC 31.2 GM/DL 32.2-35.5 L (BEAKER) (test code = 752) RED CELL DISTRIBUTION WIDTH 15.1 % 11.7-14.4 H (BEAKER) (test code = 412) PLATELET COUNT (BEAKER) (test 339 K/CU MM 150-450 code = 756) MEAN PLATELET VOLUME (BEAKER) 9.5 fL 9.4-12.3 (test code = 754) NUCLEATED RED BLOOD CELLS 0 /100 WBC 0-0 (BEAKER) (test code = 413) (CELLAVISION MANUAL DIFF)2022-06-12 07:13:37 Test Item Value Reference Range Interpretation Comments NEUTROPHILS - REL 84 % (CELLAVISION)(BEAKER) (test code = 2816) LYMPHOCYTES - REL 9 % (CELLAVISION)(BEAKER) (test code = 2817) MONOCYTES - REL 4 % (CELLAVISION)(BEAKER) (test code = 2818) BANDS - REL (CELLAVISION)(BEAKER) 3 % 0-10 (test code = 2826) NEUTROPHILS - ABS 6.72 K/ul 1.56-6.13 H (CELLAVISION)(BEAKER) (test code = 2830) LYMPHOCYTES - ABS 0.72 K/ul 1.18-3.74 L (CELLAVISION)(BEAKER) (test code = 2831) MONOCYTES - ABS 0.32 K/uL 0.24-0.36 (CELLAVISION)(BEAKER) (test code = 2832) BANDS - ABS (CELLAVISION)(BEAKER) 0.24 K/uL 0.00-0.80 (test code = 2840) TOTAL COUNTED (BEAKER) (test code = 100 1351) CLUMPED PLATELETS (BEAKER) (test Present code = 436) SMUDGE CELLS (BEAKER) (test code = Present 1371) GIANT PLATELETS (BEAKER) (test code Present = 313) ANISOCYTOSIS (BEAKER) (test code = 1+ few 961) POIKILOCYTES (BEAKER) (test code = 3+ many 966) SPHEROCYTES (BEAKER) (test code = 1+ few 768) ELLIPTOCYTES (BEAKER) (test code = 1+ few 962) VIELKA CELLS (BEAKER) (test code = 1+ few 474) ARTIFACT (CELLAVISION)(BEAKER) Present (test code = 3432) PLATELET CONCENTRATION Adequate (CELLAVISION)(BEAKER) (test code = 3438) Criminal Defense Lawyer ID - gladys Jackson comments: Slide comments:BASIC METABOLIC PANEL 2022-06-12 05:26:18 Test Item Value Reference Range Interpretation Comments SODIUM (BEAKER) 127 meq/L 136-145 L (test code = 381) POTASSIUM (BEAKER) 4.6 meq/L 3.5-5.1 Specimen slightly (test code = 379) hemolyzed CHLORIDE (BEAKER) 93 meq/L 98-107 L (test code = 382) CO2 (BEAKER) (test 24 meq/L 22-29 code = 355) BLOOD UREA NITROGEN 18 mg/dL 7-21 (BEAKER) (test code = 354) CREATININE (BEAKER) 0.60 mg/dL 0.57-1.25 Specimen slightly (test code = 358) hemolyzed GLUCOSE RANDOM 376 mg/dL 70-105 H (BEAKER) (test code = 652) CALCIUM (BEAKER) 7.0 mg/dL 8.4-10.2 L (test code = 697) EGFR (BEAKER) (test 110 mL/min/1.73 ESTIM ATED GFR IS code = 1092) sq m NOT ACCURATE CREATININE CLEARANCE IN PREDICTING GLOMERULAR FILTRATION RATE . ESTIMATED GFR I S NOT APPLICABLE FOR DIALYSIS PATIEN TS. Criminal Defense Lawyer ID - ENRRIQUE [id number] 05:24:39 Test Item Value Reference Range Interpretation Comments MAGNESIUM (BEAKER) 2.1 mg/dL 1.6-2.6 Specimen slightly (test code = 627) hemolyzed Criminal Defense Lawyer ID - ENRRIQUE [id number] 05:24:39 Test Item Value Reference Range Interpretation Comments PHOSPHORUS (BEAKER) 3.2 mg/dL 2.3-4.7 Specimen slightly (test code = 604) hemolyzed Criminal Defense Lawyer ID - ENRRIQUE BRENNAAD, ABDOMEN/KUB, 1 VIEW [id number] 01:25:00Reason for exam:->abdominal distensionShould this be performed at the bedside?->Yes [facility] 1980 Sex: FFINAL REPORT EXAMINATION: X-ray abdomen one view (KUB) CLINICAL DATA: Abdominal distention in a 42-year-old female. TECHNIQUE: There were three AP supine images obtained to try to include all the abdomen and pelvis in the field of view. COMPARISON: June 10, 2022. FINDINGS: No nasogastric tube or orogastric tube is seen. There is gaseous distention of bowel which is present at the level of the small intestine. Some type of distal small bowel obstruction is not ruled out. I suspect there isadjacent segments of jejunum [id number] in the left abdomen mimicking a single severely dilated loop of bowel is hard to tell on these images. The distance there are measures 12 cm compare with 14 cmyesterday. The findings are very similar today but perhaps slightly improved even though no nasogastric tube is in place. The colon is decompressed. Without upright or decubitus technique, it is hard to evaluate for free air. I do not see hemorrhage into the bowel wall or pneumatosis. A little bit of wall thickening is seen in the distal small bowel. Tubes seen in the left abdomen. It was described on the CT report from yesterday is being a G-tube. There may have been previous gastric surgery, though. IMPRESSION:Persistent small bowel obstruction with some possible very mild improvement despite thefact that no nasogastric tube or orogastric tube is in place. Signed: Janusz Jaquez MDReport Verified D ate/Time: 06/12/2022 01:25:05 RAD, CHEST, 1 VIEW, NON [id number] 10:18:00Reason for exam:->PICC tip location verificationShould this be performed at the bedside?->[facility] 1980 Sex: FFINAL REPORT Exam: RAD, CHEST, 1 VIEW, NON DEPTDate: 06/11/2022 10:17 AM Indication: Line placement Comparison: None FINDINGS: Lines/Tubes:Right PICC line terminates in the SVC. Lungs:The lung volumes are low. Mild left basilar subsegmental atelectasis. No focal consolidation or airspace edema. Pleura:No pleural effusion. No pneumothorax. Heart/Mediastinum:The cardiomediastinal silhouette is normal in size and contour. Bones/Soft Tissues: No acute osseous injury. Linear radiopaque structure overlies the left upper chest, possibly a wire or needle external to the patient. Abdomen: No free air below the diaphragm. Upper abdominal surgical clips. IMPRESSION:Right PICC line terminates in theSVC. Low lung volumes and mild left basilar subsegmental atelectasis. Linear radiopaque structure overlies the left upper chest, possibly a wire or needle external to the patient. Signed: Trevor Jensen MDReport Verified Date/Time: 06/11/2022 10:18:28 (CELLAVISION MANUAL DIFF)2022-06-11 09:35:46 Test Item Value Reference Range Interpretation Comments NEUTROPHILS - REL 67 % (CELLAVISION)(BEAKER) (test code = 2816) LYMPHOCYTES - REL 8 % (CELLAVISION)(BEAKER) (test code = 2817) MONOCYTES - REL 19 % (CELLAVISION)(BEAKER) (test code = 2818) EOSINOPHILS - REL 2 % (CELLAVISION)(BEAKER) (test code = 2819) BANDS - REL (CELLAVISION)(BEAKER) 4 % 0-10 (test code = 2826) NEUTROPHILS - ABS 4.02 K/ul 1.56-6.13 (CELLAVISION)(BEAKER) (test code = 2830) LYMPHOCYTES - ABS 0.48 K/ul 1.18-3.74 L (CELLAVISION)(BEAKER) (test code = 2831) MONOCYTES - ABS 1.14 K/uL 0.24-0.36 H (CELLAVISION)(BEAKER) (test code = 2832) EOSINOPHILS - ABS 0.12 K/uL 0.04-0.36 (CELLAVISION)(BEAKER) (test code = 2834) BANDS - ABS (CELLAVISION)(BEAKER) 0.24 K/uL 0.00-0.80 (test code = 2840) TOTAL COUNTED (BEAKER) (test code 100 = 1351) MANUAL NRBC PER 100 CELLS (BEAKER) 3 /100 WBC 0-0 H (test code = 1353) WBC MORPHOLOGY (BEAKER) (test code Normal = 487) CLUMPED PLATELETS (BEAKER) (test Present code = 436) ANISOCYTOSIS (BEAKER) (test code = 1+ few 961) POIKILOCYTES (BEAKER) (test code = 3+ many 966) SPHEROCYTES (BEAKER) (test code = 1+ few 768) ELLIPTOCYTES (BEAKER) (test code = 1+ few 962) VIELKA CELLS (BEAKER) (test code = 1+ few 474) ARTIFACT (CELLAVISION)(BEAKER) Present (test code = 3432) PLATELET CONCENTRATION Increased (CELLAVISION)(BEAKER) (test code = 3438) Criminal Defense Lawyer ID - gladys Jackson comments: Slide comments:CBC W/PLT COUNT & AUTO [id number] 09:35:45 Test Item Value Reference Range Interpretation Comments WHITE BLOOD CELL COUNT (BEAKER) 6.0 K/ L 3.5-10.5 (test code = 775) RED BLOOD CELL COUNT (BEAKER) 4.21 M/ L 3.93-5.22 (test code = 761) HEMOGLOBIN (BEAKER) (test code = 11.4 GM/DL 11.2-15.7 410) HEMATOCRIT (BEAKER) (test code = 36.5 % 34.1-44.9 411) MEAN CORPUSCULAR VOLUME (BEAKER) 86.7 fL 79.4-94.8 (test code = 753) MEAN CORPUSCULAR HEMOGLOBIN 27.1 pg 25.6-32.2 (BEAKER) (test code = 751) MEAN CORPUSCULAR HEMOGLOBIN CONC 31.2 GM/DL 32.2-35.5 L (BEAKER) (test code = 752) RED CELL DISTRIBUTION WIDTH 15.2 % 11.7-14.4 H (BEAKER) (test code = 412) PLATELET COUNT (BEAKER) (test 486 K/CU MM 150-450 H code = 756) MEAN PLATELET VOLUME (BEAKER) 9.2 fL 9.4-12.3 L (test code = 754) NUCLEATED RED BLOOD CELLS 0 /100 WBC 0-0 (BEAKER) (test code = 413) BASIC METABOLIC [id number] 07:31:31 Test Item Value Reference Range Interpretation Comments SODIUM (BEAKER) 132 meq/L 136-145 L (test code = 381) POTASSIUM (BEAKER) 4.7 meq/L 3.5-5.1 (test code = 379) CHLORIDE (BEAKER) 102 meq/L 98-107 (test code = 382) CO2 (BEAKER) (test 20 meq/L 22-29 L code = 355) BLOOD UREA NITROGEN 31 mg/dL 7-21 H (BEAKER) (test code = 354) CREATININE (BEAKER) 0.61 mg/dL 0.57-1.25 (test code = 358) GLUCOSE RANDOM 83 mg/dL 70-105 (BEAKER) (test code = 652) CALCIUM (BEAKER) 7.6 mg/dL 8.4-10.2 L (test code = 697) EGFR (BEAKER) (test 108 mL/min/1.73 ESTIM ATED GFR IS code = 1092) sq m NOT ACCURATE CREATININE CLEARANCE IN PREDICTING GLOMERULAR FILTRATION RATE . ESTIMATED GFR I S NOT APPLICABLE FOR DIALYSIS PATIEN TS. Criminal Defense Lawyer ID - [id number] 07:27:11 Test Item Value Reference Range Interpretation Comments PHOSPHORUS (BEAKER) (test code = 5.0 mg/dL 2.3-4.7 H 604) Criminal Defense Lawyer ID - [id number] 07:27:10 Test Item Value Reference Range Interpretation Comments MAGNESIUM (BEAKER) (test code = 1.9 mg/dL 1.6-2.6 627) Criminal Defense Lawyer ID - ADMINCALCIUM, [id number] 06:26:13 Test Item Value Reference Range Interpretation Comments CALCIUM IONIZED (BEAKER) (test 1.07 mmol/L 1.12-1.27 L code = 698) PH, BLOOD (BEAKER) (test code = 7.37 1810) (CELLAVISION MANUAL DIFF)2022-06-10 23:40:24 Test Item Value Reference Range Interpretation Comments NEUTROPHILS - REL 45 % (CELLAVISION)(BEAKER) (test code = 2816) LYMPHOCYTES - REL 30 % (CELLAVISION)(BEAKER) (test code = 2817) MONOCYTES - REL 11 % (CELLAVISION)(BEAKER) (test code = 2818) EOSINOPHILS - REL 3 % (CELLAVISION)(BEAKER) (test code = 2819) METAMYELOCYTES - REL 1 % 0-0 H (CELLAVISION)(BEAKER) (test code = 2821) BANDS - REL (CELLAVISION)(BEAKER) 9 % 0-10 (test code = 2826) ATYPICAL LYMPHOCYTES - REL 1 % 0-0 H (CELLAVISION)(BEAKER) (test code = 2829) NEUTROPHILS - ABS 2.12 K/ul 1.56-6.13 (CELLAVISION)(BEAKER) (test code = 2830) LYMPHOCYTES - ABS 1.41 K/ul 1.18-3.74 (CELLAVISION)(BEAKER) (test code = 2831) MONOCYTES - ABS 0.52 K/uL 0.24-0.36 H (CELLAVISION)(BEAKER) (test code = 2832) EOSINOPHILS - ABS 0.14 K/uL 0.04-0.36 (CELLAVISION)(BEAKER) (test code = 2834) METAMYELOCYTES - ABS 0.05 K/uL 0.00-0.00 H (CELLAVISION)(BEAKER) (test code = 2836) BANDS - ABS (CELLAVISION)(BEAKER) 0.42 K/uL 0.00-0.80 (test code = 2840) ATYPICAL LYMPHOCYTES - ABS 0.05 K/uL 0.00-0.00 H (CELLAVISION)(BEAKER) (test code = 2858) TOTAL COUNTED (BEAKER) (test code 100 = 1351) CLUMPED PLATELETS (BEAKER) (test Present code = 436) SMUDGE CELLS (BEAKER) (test code Present = 1371) POLYCHROMATOPHILLIC RBCS(BEAKER) 1+ few (test code = 478) ANISOCYTOSIS (BEAKER) (test code 2+ moderate = 961) MACROCYTES (BEAKER) (test code = 1+ few 964) POIKILOCYTES (BEAKER) (test code 3+ many = 966) SCHISTOCYTES (BEAKER) (test code 2+ moderate = 765) VIELKA CELLS (BEAKER) (test code = 3+ many 474) PLATELET CONCENTRATION Increased (CELLAVISION)(BEAKER) (test code = 3438) Criminal Defense Lawyer ID - Cullen Godoy Miguelangel comments: Slide comments:CBC W/PLT COUNT & AUTO [id number] 23:40:23 Test Item Value Reference Range Interpretation Comments WHITE BLOOD CELL COUNT (BEAKER) 4.7 K/ L 3.5-10.5 (test code = 775) RED BLOOD CELL COUNT (BEAKER) 4.23 M/ L 3.93-5.22 (test code = 761) HEMOGLOBIN (BEAKER) (test code = 11.7 GM/DL 11.2-15.7 410) HEMATOCRIT (BEAKER) (test code = 37.0 % 34.1-44.9 411) MEAN CORPUSCULAR VOLUME (BEAKER) 87.5 fL 79.4-94.8 (test code = 753) MEAN CORPUSCULAR HEMOGLOBIN 27.7 pg 25.6-32.2 (BEAKER) (test code = 751) MEAN CORPUSCULAR HEMOGLOBIN CONC 31.6 GM/DL 32.2-35.5 L (BEAKER) (test code = 752) RED CELL DISTRIBUTION WIDTH 15.4 % 11.7-14.4 H (BEAKER) (test code = 412) PLATELET COUNT (BEAKER) (test 523 K/CU MM 150-450 H code = 756) MEAN PLATELET VOLUME (BEAKER) 9.5 fL 9.4-12.3 (test code = 754) NUCLEATED RED BLOOD CELLS 0 /100 WBC 0-0 (BEAKER) (test code = 413) [id number] 21:36:13 Test Item Value Reference Range Interpretation Comments PREALBUMIN (BEAKER) (test code = 586) 3 mg/dL 14-45 L Criminal Defense Lawyer ID - ADMINCALCIUM, [id number] 18:21:11 Test Item Value Reference Range Interpretation Comments CALCIUM IONIZED (BEAKER) (test 1.07 mmol/L 1.12-1.27 L code = 698) PH, BLOOD (BEAKER) (test code = 7.36 1810) HEPATIC FUNCTION [id number] 18:18:17 Test Item Value Reference Range Interpretation Comments TOTAL PROTEIN (BEAKER) (test code = 5.6 gm/dL 6.0-8.3 L 770) ALBUMIN (BEAKER) (test code = 1145) 2.3 g/dL 3.5-5.0 L BILIRUBIN TOTAL (BEAKER) (test code 0.4 mg/dL 0.2-1.2 = 377) BILIRUBIN DIRECT (BEAKER) (test 0.2 mg/dL 0.1-0.5 code = 706) ALKALINE PHOSPHATASE (BEAKER) (test 112 U/L 40-150 code = 346) AST (SGOT) (BEAKER) (test code = 21 U/L 5-34 353) ALT (SGPT) (BEAKER) (test code = 14 U/L 6-55 347) Criminal Defense Lawyer ID - ADMINCT, [id number] 16:15:00Please give contrast through G- tubeUnlisted Reason for Exam - Click Yes and Enter Reason Below->NoIs this for enterography?->NoWill this procedure require oral contrast?->Yes [facility] 1980 Sex: FFINAL REPORT CT of the abdomen and pelvis, with contrast Clinical History: Bowel obstruction suspected Technique: CT of the abdomen and pelvis is performed with intravenous contrast administration. This exam was performed according to our departmental dose optimization program which includes automated exposure control, adjustment of the mA and/or kV according to patient's size and/or use of iterative reconstructive technique. Comparison Film: June 07, 2022 Discussion: There is bibasilar atelectasis. Trace left pleural effusion. Liver is fatty. No biliary ductal dilatation. Status post cholecystectomy. The spleen, pancreas and adrenal glands are normal. No renal mass. There is a nonobstructive 2 mm stone in the right kidney. There is also interval development of mild right hydroureter and nephrosis. Interval placement of a gastrostomy tube. Question prior gastric bypass. Small bowel distention is not significantly changed from the prior exam, previously decompressed distal small bowelloops are now normal in caliber or minimally distended. A discrete transition point is not identified . Status post right hemicolectomy colectomy, with ileocolic anastomosis. There is interval development of pneumatosis at the hepatic flexure. Remainder of the colon is unremarkable. There is a small amount of free intraperitoneal air, likely related to gastrostomy tube placement. There is also trace ascites that is new. No adenopathy. There is nonspecific mesenteric edema, and a few mildly enlarged mesenteric lymph nodes, which could be reactive. In the pelvis, air within the bladder could be related to instrumentation. Uterus is absent. No adnexal mass. Bony structures are intact. There is mild anasarca. Impression: Status post placement of gastrostomy tube. Question prior gastric bypass, correlate with surgical history. There is persistent small bowel distention, previously decompressed distal small bowel loops have also increased in caliber. Findings may reflect partial obstruction, versus ileus. Colonic pneumatosis at the hepatic flexure. This is nonspecific and could be related to recent surgery, correlate clinically to exclude ischemia. 2 mm nonobstructive stone in the right kidney. There is interval development of mild right hydronephrosis. Anasarca. Small amount of ascites. Hepatic steatosis. Signed: Nicolette Brand [facility] Verified Date/Time: 06/10/2022 16:15:24 Reading Location: [facility] B1 C013W Consult Reading Room [id number] 14:41:23 Test Item Value Reference Range Interpretation Comments TRIGLYCERIDES (SAMMIAKER) (test code = 45 mg/dL 540) TRIGLYCERIDE REFERENCE RANGELow Risk <150Borderline Risk 150-199High Risk 200-499Very High Risk >=500Operator ID - ADMINRAD, ABDOMEN/KUB, 1 VIEW AP 2022-06-10 08:25:00Reason for exam:->emesis [facility] : 1980 Sex: FFINAL REPORT RAD, ABDOMEN/KUB, 1 VIEW AP CLINICAL INDICATION: emesis COMPARISON: CT abdomen and pelvis 06/07/2022 TECHNIQUE: Single, frontal radiograph of the abdomen. FINDINGS: Ongoing distal small bowel obstruction with loops measuring up to 14 cm, similar to prior CT abdomen and pelvis 06/07/2022. Evaluation for free air is limited by portable supine technique. Within these limitations, no free air is identified. Signed: Clare Ramos MDReport Verified Date/Time: 06/10/2022 08:25:52 [id number] 06:31:07 Test Item Value Reference Range Interpretation Comments MAGNESIUM (BEAKER) (test code = 2.0 mg/dL 1.6-2.6 627) Criminal Defense Lawyer ID - KORY [id number] 06:31:07 Test Item Value Reference Range Interpretation Comments PHOSPHORUS (BEAKER) (test code = 4.2 mg/dL 2.3-4.7 604) Criminal Defense Lawyer ID - KORY GBASIC METABOLIC [id number] 06:31:06 Test Item Value Reference Range Interpretation Comments SODIUM (BEAKER) 132 meq/L 136-145 L (test code = 381) POTASSIUM (BEAKER) 5.0 meq/L 3.5-5.1 (test code = 379) CHLORIDE (BEAKER) 104 meq/L 98-107 (test code = 382) CO2 (BEAKER) (test 23 meq/L 22-29 code = 355) BLOOD UREA NITROGEN 31 mg/dL 7-21 H (BEAKER) (test code = 354) CREATININE (BEAKER) 0.67 mg/dL 0.57-1.25 (test code = 358) GLUCOSE RANDOM 86 mg/dL 70-105 (BEAKER) (test code = 652) CALCIUM (BEAKER) 8.2 mg/dL 8.4-10.2 L (test code = 697) EGFR (BEAKER) (test 97 mL/min/1.73 ESTIMA TRIPP GFR IS code = 1092) sq m NOT ACCURATE CREATININE CLEARANCE IN PREDICTING GLOMERULAR FILTRATION RATE . ESTIMATED GFR I S NOT APPLICABLE FOR DIALYSIS PATIEN TS. Criminal Defense Lawyer ID - KORY G(CELLAVISION MANUAL DIFF)2022-06-09 08:50:40 Test Item Value Reference Range Interpretation Comments NEUTROPHILS - REL 78 % (CELLAVISION)(BEAKER) (test code = 2816) LYMPHOCYTES - REL 3 % (CELLAVISION)(BEAKER) (test code = 2817) MONOCYTES - REL 2 % (CELLAVISION)(BEAKER) (test code = 2818) BANDS - REL (CELLAVISION)(BEAKER) 17 % 0-10 H (test code = 2826) NEUTROPHILS - ABS 12.40 K/ul 1.56-6.13 H (CELLAVISION)(BEAKER) (test code = 2830) LYMPHOCYTES - ABS 0.48 K/ul 1.18-3.74 L (CELLAVISION)(BEAKER) (test code = 2831) MONOCYTES - ABS 0.32 K/uL 0.24-0.36 (CELLAVISION)(BEAKER) (test code = 2832) BANDS - ABS (CELLAVISION)(BEAKER) 2.70 K/uL 0.00-0.80 H (test code = 2840) TOTAL COUNTED (BEAKER) (test code 100 = 1351) WBC MORPHOLOGY (BEAKER) (test Normal code = 487) PLT MORPHOLOGY (BEAKER) (test Normal code = 486) ANISOCYTOSIS (BEAKER) (test code 1+ few = 961) POIKILOCYTES (BEAKER) (test code 2+ moderate = 966) VIELKA CELLS (BEAKER) (test code = 2+ moderate 474) ARTIFACT (CELLAVISION)(BEAKER) Present (test code = 3432) PLATELET CONCENTRATION Adequate (CELLAVISION)(BEAKER) (test code = 3438) Criminal Defense Lawyer ID - Connie OverholtUser comments: Slide comments:CBC W/PLT COUNT & AUTO [id number] 08:50:35 Test Item Value Reference Range Interpretation Comments WHITE BLOOD CELL COUNT (BEAKER) 15.9 K/ L 3.5-10.5 H (test code = 775) RED BLOOD CELL COUNT (BEAKER) 4.49 M/ L 3.93-5.22 (test code = 761) HEMOGLOBIN (BEAKER) (test code = 12.7 GM/DL 11.2-15.7 410) HEMATOCRIT (BEAKER) (test code = 39.7 % 34.1-44.9 411) MEAN CORPUSCULAR VOLUME (BEAKER) 88.4 fL 79.4-94.8 (test code = 753) MEAN CORPUSCULAR HEMOGLOBIN 28.3 pg 25.6-32.2 (BEAKER) (test code = 751) MEAN CORPUSCULAR HEMOGLOBIN CONC 32.0 GM/DL 32.2-35.5 L (BEAKER) (test code = 752) RED CELL DISTRIBUTION WIDTH 15.3 % 11.7-14.4 H (BEAKER) (test code = 412) PLATELET COUNT (BEAKER) (test 406 K/CU MM 150-450 code = 756) MEAN PLATELET VOLUME (BEAKER) 9.4 fL 9.4-12.3 (test code = 754) NUCLEATED RED BLOOD CELLS 0 /100 WBC 0-0 (BEAKER) (test code = 413) BASIC METABOLIC [id number] 07:32:13 Test Item Value Reference Range Interpretation Comments SODIUM (BEAKER) 135 meq/L 136-145 L (test code = 381) POTASSIUM (BEAKER) 4.5 meq/L 3.5-5.1 (test code = 379) CHLORIDE (BEAKER) 108 meq/L 98-107 H (test code = 382) CO2 (BEAKER) (test 20 meq/L 22-29 L code = 355) BLOOD UREA NITROGEN 24 mg/dL 7-21 H (BEAKER) (test code = 354) CREATININE (BEAKER) 0.64 mg/dL 0.57-1.25 (test code = 358) GLUCOSE RANDOM 93 mg/dL 70-105 (BEAKER) (test code = 652) CALCIUM (BEAKER) 8.2 mg/dL 8.4-10.2 L (test code = 697) EGFR (BEAKER) (test 102 mL/min/1.73 ESTIM ATED GFR IS code = 1092) sq m NOT ACCURATE CREATININE CLEARANCE IN PREDICTING GLOMERULAR FILTRATION RATE . ESTIMATED GFR I S NOT APPLICABLE FOR DIALYSIS PATIEN TS. Criminal Defense Lawyer ID - KORY [id number] 07:32:13 Test Item Value Reference Range Interpretation Comments MAGNESIUM (BEAKER) (test code = 1.9 mg/dL 1.6-2.6 627) Criminal Defense Lawyer ID - KORY [id number] 07:32:13 Test Item Value Reference Range Interpretation Comments PHOSPHORUS (BEAKER) (test code = 3.6 mg/dL 2.3-4.7 604) Criminal Defense Lawyer ID - KORY [id number] 05:47:16 Test Item Value Reference Range Interpretation Comments PHOSPHORUS (BEAKER) (test code = 5.2 mg/dL 2.3-4.7 H 604) Criminal Defense Lawyer ID - ADMINBASIC METABOLIC [id number] 05:47:15 Test Item Value Reference Range Interpretation Comments SODIUM (BEAKER) 138 meq/L 136-145 (test code = 381) POTASSIUM (BEAKER) 3.8 meq/L 3.5-5.1 (test code = 379) CHLORIDE (BEAKER) 109 meq/L 98-107 H (test code = 382) CO2 (BEAKER) (test 19 meq/L 22-29 L code = 355) BLOOD UREA NITROGEN 17 mg/dL 7-21 (BEAKER) (test code = 354) CREATININE (BEAKER) 0.67 mg/dL 0.57-1.25 (test code = 358) GLUCOSE RANDOM 118 mg/dL 70-105 H (BEAKER) (test code = 652) CALCIUM (BEAKER) 8.0 mg/dL 8.4-10.2 L (test code = 697) EGFR (BEAKER) (test 97 mL/min/1.73 ESTIMA TRIPP GFR IS code = 1092) sq m NOT ACCURATE CREATININE CLEARANCE IN PREDICTING GLOMERULAR FILTRATION RATE . ESTIMATED GFR I S NOT APPLICABLE FOR DIALYSIS PATIEN TS. Criminal Defense Lawyer ID - [id number] 05:47:15 Test Item Value Reference Range Interpretation Comments MAGNESIUM (BEAKER) (test code = 1.5 mg/dL 1.6-2.6 L 627) Criminal Defense Lawyer ID - ADMINSARS-COV2/RT-PCR (HS & REF LABS)2022-06-07 12:34:18 Test Item Value Reference Range Interpretation Comments SARS-COV2/RT-PCR Negative Negative The SARS-Co V-2 target (test code = nucleic acids a re not [id number]) detected in thi s specimen. Negative result s do not preclude SARS-C oV-2 infection and s hould not be used as the brynn e basis for patient managem ent decisions. Nega tive results must be combine d with clinical observ ations, patient history , and epidemiological information. A false negativ e result may occur if a spec imen is improperly mickie ected, transported or handled. This SARS CoV-2 test is a rapid, real-time RT-PC R test intended for th e qualitative detection of nu cleic acid from SARS-CoV-2 in a nasopharyngeal swab specimen collected from individuals suspected of CO VID-19 by their healthcar e provider. This test has been authorized by FDA under an EUA for use by authorized laboratories. This test is only authorized for the duration of the declaration that circumstances exist justifying the authorization of emergency use of in vitro diagnostic tests for detection and/or diagnosis of COVID-19 under Section 564(b)(1) of the Federal Food, Drug and Cosmetic Act, 21 U.S.C. 360bbb-3(b)(1), unless the authorization is terminated or revoked sooner. Fact Sheet for Healthcare Providers: https://www.[employer]/Documents/Xpert%20Xpress%20SARS%20CoV-2/Fact%20Sheets/684-2392%81AGFT-YVJ-1%20 HEALTHCARE%20PROVIDERS%20FACT%20SHEET.pdf Fact Sheet for Healthcare Patients: https://www.[employer]/Documents/Xpert%20Xp ress%20SARS%20CoV-2/Fact%20Sheets/964-3801%49WOSB-JUD-3%20PATIENT%20FACT%20SHEET .pdfCT, [id number] 11:17:00Unlisted Reason for Exam - Click Yes and Enter Reason Below->NoIs this for enterography?->NoWill this procedure require oral contrast?->No [facility] 1980 Sex: FFINAL REPORT ABDOMINAL AND PELVIS CT DATED 06/07/2022 CLINICAL INFORMATION: Abdominal abscess/infection suspected TECHNIQUE: Axial images of the abdomen and pelvis were obtained from diaphragm to the pubic symphysis with intravenous contrast. This exam was performed according to our departmental dose-optimization program, which includes automated exposure control, adjustment of the mA and/or kV according to patient size and/or use of interactive reconstruction technique. COMMENT: A focal airspace disease is seen in the right lower lobe suspicious for pneumonia. Liver and spleen are normalin size without focal abnormality. There is diffusely decreased attenuation in the liver consistent with fatty hepatic infiltrate. Gallbladder is contracted. No gallstone or biliary dilatation is noted. Pancreas and adrenals are unremarkable. Both kidneys are normal in size and functioning. No hydronep hrosis, hydroureter, urolithiasis is seen. Multiple dilated small bowel loops are seen in the abdomen and pelvis measuring up to 5.7 cm. The distal small bowel is normal in caliber. Transition point isnot identified. The large bowel is collapsed. Diverticular disease is seen in the large bowel without diverticulitis. Enlarged lymph nodes are seen in the root of mesentery measuring up to 1.6 x 2.3 cm. IMPRESSION: 1. Findings consistent with distal small bowel obstruction.2. Diverticulosis without diverticulitis.3. Fatty liver.4. Nonspecific prominent lymph nodes in the root of the mesentery.5. Focal airspace disease in the right lower lobe suggestive of pneumonia. Signed: Arianna Willingham MDReport Verified Date/Time: 06/07/2022 11:17:35 Reading Location: [facility] B1 C013Y CT Body Reading Room LIPID [id number] 07:08:34 Test Item Value Reference Range Interpretation Comments TRIGLYCERIDES (BEAKER) (test code = 40 mg/dL 540) CHOLESTEROL (BEAKER) (test code = 44 mg/dL 631) HDL CHOLESTEROL (BEAKER) (test code 20 mg/dL = 976) LDL CHOLESTEROL CALCULATED (BEAKER) 16 mg/dL (test code = 633) Triglyceride Reference Range: Low Risk <150 Borderline 150-199 High Risk 200- 499 Very High Risk >=500Cholesterol Reference Range: Low Risk <200 Borderline 200-239 High Risk >240HDL Cholesterol Reference Range: Low Risk >=60 High Risk <40LDL Cholesterol Reference Range: Optimal <100 Near Optimal 100-129 Borderline 130-159 High 160-189 Very High >=190 Criminal Defense Lawyer ID - KORY GBASIC METABOLIC [id number] 06:56:16 Test Item Value Reference Range Interpretation Comments SODIUM (BEAKER) 138 meq/L 136-145 (test code = 381) POTASSIUM (BEAKER) 3.8 meq/L 3.5-5.1 (test code = 379) CHLORIDE (BEAKER) 108 meq/L 98-107 H (test code = 382) CO2 (BEAKER) (test 21 meq/L 22-29 L code = 355) BLOOD UREA NITROGEN 14 mg/dL 7-21 (BEAKER) (test code = 354) CREATININE (BEAKER) 0.61 mg/dL 0.57-1.25 (test code = 358) GLUCOSE RANDOM 87 mg/dL 70-105 (BEAKER) (test code = 652) CALCIUM (BEAKER) 8.3 mg/dL 8.4-10.2 L (test code = 697) EGFR (BEAKER) (test 108 mL/min/1.73 ESTIM ATED GFR IS code = 1092) sq m NOT ACCURATE CREATININE CLEARANCE IN PREDICTING GLOMERULAR FILTRATION RATE . ESTIMATED GFR I S NOT APPLICABLE FOR DIALYSIS PATIEN TS. Criminal Defense Lawyer ID - KORY [id number] 06:56:16 Test Item Value Reference Range Interpretation Comments MAGNESIUM (BEAKER) (test code = 1.7 mg/dL 1.6-2.6 627) Criminal Defense Lawyer ID - KORY [id number] 06:56:16 Test Item Value Reference Range Interpretation Comments PHOSPHORUS (BEAKER) (test code = 4.2 mg/dL 2.3-4.7 604) Criminal Defense Lawyer ID - KORY GPROTHROMBIN [id number] 06:05:15 Test Item Value Reference Range Interpretation Comments PROTIME (BEAKER) 16.9 seconds 11.9-14.2 H (test code = 759) INR (BEAKER) (test 1.39 See_Comment [Automat ed message] code = 370) The system [employer] generated this result transmitted ref erence range: <=5.90. The reference range was not used to int erpret this result as normal/abnormal . RECOMMENDED COUMADIN/WARFARIN INR THERAPY RANGESSTANDARD DOSE: 2.0 - 3.0 Includes: PROPHYLAXIS for venous thrombosis, systemic embolization; TREATMENT for venous thrombosis and/or pulmonary embolus.HIGH RISK: Target INR is 2.5-3.5 for patients with mechanical heart valves.CBC W/PLT COUNT & AUTO [id number] 05:52:26 Test Item Value Reference Range Interpretation Comments WHITE BLOOD CELL COUNT (BEAKER) 8.9 K/ L 3.5-10.5 (test code = 775) RED BLOOD CELL COUNT (BEAKER) 4.07 M/ L 3.93-5.22 (test code = 761) HEMOGLOBIN (BEAKER) (test code = 11.4 GM/DL 11.2-15.7 410) HEMATOCRIT (BEAKER) (test code = 36.5 % 34.1-44.9 411) MEAN CORPUSCULAR VOLUME (BEAKER) 89.7 fL 79.4-94.8 (test code = 753) MEAN CORPUSCULAR HEMOGLOBIN 28.0 pg 25.6-32.2 (BEAKER) (test code = 751) MEAN CORPUSCULAR HEMOGLOBIN CONC 31.2 GM/DL 32.2-35.5 L (BEAKER) (test code = 752) RED CELL DISTRIBUTION WIDTH 15.2 % 11.7-14.4 H (BEAKER) (test code = 412) PLATELET COUNT (BEAKER) (test 300 K/CU MM 150-450 code = 756) MEAN PLATELET VOLUME (BEAKER) 9.3 fL 9.4-12.3 L (test code = 754) NUCLEATED RED BLOOD CELLS 0 /100 WBC 0-0 (BEAKER) (test code = 413) NEUTROPHILS RELATIVE PERCENT 64 % (BEAKER) (test code = 429) LYMPHOCYTES RELATIVE PERCENT 24 % (BEAKER) (test code = 430) MONOCYTES RELATIVE PERCENT 10 % (BEAKER) (test code = 431) EOSINOPHILS RELATIVE PERCENT 1 % (BEAKER) (test code = 432) BASOPHILS RELATIVE PERCENT 0 % (BEAKER) (test code = 437) NEUTROPHILS ABSOLUTE COUNT 5.72 K/ L 1.56-6.13 (BEAKER) (test code = 670) LYMPHOCYTES ABSOLUTE COUNT 2.16 K/ L 1.18-3.74 (BEAKER) (test code = 414) MONOCYTES ABSOLUTE COUNT (BEAKER) 0.84 K/ L 0.24-0.36 H (test code = 415) EOSINOPHILS ABSOLUTE COUNT 0.09 K/ L 0.04-0.36 (BEAKER) (test code = 416) BASOPHILS ABSOLUTE COUNT (BEAKER) 0.02 K/ L 0.01-0.08 (test code = 417) IMMATURE GRANULOCYTES-RELATIVE 1 % 0-1 PERCENT (BEAKER) (test code = 8831)
[2022-07-13 23:34] LABS: Absolute Lymphocytes (CBC) 2.1 K/uL (0.7-4.9); Hematocrit 34.9 % (36.0-45.0); MCV 88.3 fL (80-100); MPV 6.6 fL (7.6-11.3); RBC Red Blood Cell Count 3.95 M/uL (3.86-4.86)
[2022-07-13] MEDS ORDERED: HYDROMORPHONE HCL 1 MG/ML INJ ONE (23:41)
[2022-07-13] MEDS ORDERED: FAMOTIDINE 20 MG/2 ML VIAL IV ONE (23:41)
[2022-07-13] MEDS ORDERED: ONDANSETRON 4 MG/2 ML VIAL ONE (23:41)
[2022-07-13 23:50] LABS: Bilirubin Total 0.4 mg/dL (0.2-1.0); Potassium 4.1 mmol/L (3.5-5.1); Protein, Total 7.1 g/dL (6.4-8.2)
[2022-07-14 00:14] LABS: Anisocytosis 1+; Blood Morphology Comment NOTED (NOT SEEN); Macrocytosis 1+; Platelet Estimate ADEQ; White Blood Cell Scan OK (OK)
[2022-07-14] MEDS ORDERED: NA CHLORIDE 0.9% 100 ML ONE (02:18)
[2022-07-14] MEDS ORDERED: HYDROMORPHONE HCL 2 MG/ML inj ONE ×2 (02:18→08:37)
--- NOTE | 2022-07-14 04:49 | EDPHYS ---
Physician Documentation [facility] Name: Prabha Booker Age: 42 yrs Sex: Female : 1980 Arrival Date: 07/13/2022 Time: 21:12 Bed 20 Private MD: ED Physician Zachary Campo HPI: 07/14 02:13 This 42 yrs old Female presents to ER via Wheelchair with complaints of Problem With kdr Feeding Tube, - Leaking. 02:13 Patient presents today to the ED complaining of feeding tube leaking. She also kdr complains of abdominal pain. Patient has a long history regard to bowel issues. She states that she has had a bowel resection from an accident many years ago. Most recently she has been here in May with a bowel obstruction that resulted in transfer to [facility]. She also states that she was at [facility] where she had an NG tube placed. Apparently according to the patient the tube did not function correctly and she left the facility AMA and ended up at [facility] in the [facility]. Since that time that she states the feeding tube was placed. Since then she was discharged and has had intermittent abdominal pain has been worsening. Most recently she has had difficulty with the feeding tube leaking.. Onset: The symptoms/episode began/occurred at an unknown time. Patient has been having intermittent abdominal issues for years.. Severity of symptoms: At their worst the symptoms were mild moderate just prior to arrival, in the emergency department the symptoms are unchanged. The patient has experienced similar episodes in the past, multiple times, chronically. The patient has been recently seen at the [facility] Emergency Department, last month. 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 - Social history:: Smoking status: Patient denies any tobacco usage or history of. ROS: 07/14 02:13 Constitutional: Negative for fever, chills, and weight loss, Eyes: Negative for injury, kdr pain, redness, and discharge, Neck: Negative for injury, pain, and swelling, Cardiovascular: Negative for chest pain, palpitations, and edema, Respiratory: Negative for shortness of breath, cough, wheezing, and pleuritic chest pain, Back: Negative for injury and pain, : Negative for injury, bleeding, discharge, and swelling, MS/Extremity: Negative for injury and deformity, Skin: Negative for injury, rash, and discoloration, Neuro: Negative for headache, weakness, numbness, tingling, and seizure activity. Psych: Negative for depression, anxiety, suicide ideation, homicidal ideation, and hallucinations, Allergy/Immunology: Negative for hives, rash, and allergies. Abdomen/GI: Positive for abdominal pain, Feeding tube leakage, Negative for constipation, black/tarry stool, rectal pain, rectal bleeding, bowel incontinence. Exam: 02:13 Constitutional: This is a well developed, well nourished patient who is awake, alert, kdr and in mild distress. Head/Face: Normocephalic, atraumatic. Vital Signs: 07/13 21:52 BP 123 / 80; Pulse 82; Resp 16; Temp 98.2(O); Pulse Ox 100% on R/A; Weight 85.28 kg bm7 (R); Height 5 ft. 7 in. (170.18 cm) (R); Pain 10/10; 23:30 BP 120 / 80; Pulse 87; Resp 17; Pulse Ox 100% on R/A; ll3 07/14 01:24 BP 112 / 82; Pulse 81; Resp 17; Pulse Ox 99% on R/A; ll3 02:34 BP 122 / 85; Pulse 86; Resp 18; Pulse Ox 98% on R/A; ll3 03:54 BP 127 / 81; Pulse 94; Resp 17; Pulse Ox 100% on R/A; ll3 05:30 BP 120 / 78; Pulse 93; Resp 18; Pulse Ox 98% on R/A; ll3 06:33 BP 114 / 84; Pulse 86; Resp 18; Pulse Ox 96% on R/A; ll3 07:10 BP 123 / 82; Pulse 93; Resp 18; Pulse Ox 100% on R/A; em6 08:10 BP 116 / 86; Pulse 76; Resp 16; Pulse Ox 100% on R/A; em6 07/13 21:52 Body Mass Index 29.45 (85.28 kg, 170.18 cm) bm7 MDM: 04:49 Patient medically screened. kdr 04:49 Data reviewed: vital signs, nurses notes, lab test result(s), radiologic studies. kdr Counseling: I had a detailed discussion with the patient and/or guardian regarding: the historical points, exam findings, and any diagnostic results supporting the discharge/admit diagnosis, lab results, radiology results, the need to transfer to another facility. 06:10 ED course: Patient continues to be stable in the ED. She continues to request kdr additional pain medication. She has been without vomiting but has continued to be nauseated. She has not had any diarrhea since she has been here. He has been accepted to [facility] for a ileus and/or partial small bowel obstruction, early. I explained the findings to the patient as well as a plan for transfer. 07/13 23:20 Order name: CBC with Diff; Complete Time: 00:55 kdr 07/13 23:20 Order name: CMP; Complete Time: 00:55 kdr 07/13 23:20 Order name: Lipase; Complete Time: 00:55 kdr 07/13 23:38 Order name: CBC Smear Scan; Complete Time: 00:55 EDMS 07/14 00:11 Order name: CREATININE WHOLE BLOOD; Complete Time: 00:55 EDMS 07/14 04:43 Order name: SARS RAPID ds4 07/13 23:20 Order name: CT Abd/Pelvis - IV Contrast Only kdr 07/13 23:20 Order name: IV Saline Lock; Complete Time: 23:27 kdr 07/13 23:20 Order name: Labs collected and sent; Complete Time: 23:27 kdr Administered Medications: 07/13 23:41 Drug: Zofran (Ondansetron) 4 mg Route: IVP; Site: right antecubital; ll3 07/14 01:09 Drug: Dilaudid (HYDROmorphone) 1 mg Route: IVP; Site: right forearm; ll3 01:09 Drug: Pepcid (famotidine) 20 mg Route: IVP; Site: right forearm; ll3 03:14 Drug: Dilaudid (HYDROmorphone) 2 mg Route: IVP; Site: left forearm; ll3 03:51 Drug: NS 0.9% 1000 ml Route: IV; Rate: 125 ml/hr; Site: left forearm; ll3 05:59 Drug: NS 0.9% 500 ml Route: IV; Rate: bolus; Site: left antecubital; ll3 05:59 Drug: Zofran (Ondansetron) 4 mg Route: IVP; Site: left antecubital; ll3 07:23 CANCELLED (Physician Discretion): Dilaudid (HYDROmorphone) 2 mg IVP once jd3 08:20 Drug: Dilaudid (HYDROmorphone) 2 mg Route: IVP; Site: left antecubital; em6 08:37 Follow up: Response: No adverse reaction; RASS: Alert and Calm (0) em6 Disposition Summary: 07/14/22 04:49 Transfer Ordered Transfer Location: [facility] kdr Reason: Higher level of care kdr Condition: Fair kdr Problem: an acute exacerbation kdr Symptoms: have improved kdr Accepting Physician: Dr. Bryan [facility](07/14/22 08:56) em6 Diagnosis - Abdominal pain, worsening abdominal abscess, partial SBO kdr Forms: - Medication Reconciliation Form kdr - SBAR form kdr Signatures: Dispatcher [employer] EDMS Zachary Campo MD MD kdr Cody Eubanks, KYLE-C OPTOMETRIC TECH-Patrick Holden RN RN jd3 Angelina Sepulveda Brittany RN RN bm7 Omar Olivarez RN RN ll3 Mamie Andrews RN RN em6 Corrections: (The following items were deleted from the chart) 07:21 04:49 [facility] kdr eb 07:23 07:21 Dilaudid (HYDROmorphone) 2 mg IVP once ordered. [facility] jd3 08:56 07:[address] [facility] eb em6
--- NOTE | 2022-07-14 04:49 | ER ---
Nurse's Notes [facility] Name: Prabha Booker Age: 42 yrs Sex: Female : 1980 Arrival Date: 07/13/2022 Time: 21:12 Bed 20 Private MD: Diagnosis: Abdominal pain, worsening abdominal abscess, partial SBO Presentation: 07/13 21:53 Chief complaint: Patient states: 5 weeks ago I went to [facility] for abdominal pain and they bm7 gave me a NG tube and did not turn the suction on. They left me in my own bile for days and my bowel became necrotic. I left AMA and went to [facility] down[facility] and they put a feeding tube in and now its leaking everywhere. Coronavirus screen: At this time, the client does not indicate any symptoms associated with coronavirus-19. Ebola Screen: No symptoms or risks identified at this time. Initial Sepsis Screen: Does the patient meet any 2 criteria? No. Patient's initial sepsis screen is negative. Does the patient have a suspected source of infection? Yes: Skin breakdown/wound. Risk Assessment: Do you want to hurt yourself or someone else? Patient reports no desire to harm self or others. Onset of symptoms was May 29, 2022. 21:53 Method Of Arrival: Wheelchair bm7 21:53 Acuity: GALINDO 3 bm7 Triage Assessment: 21:56 General: Appears uncomfortable, Behavior is calm, cooperative. Pain: Complains of pain bm7 in abdomen Pain does not radiate. Pain currently is 10 out of 10 on a pain scale. EENT: No deficits noted. No signs and/or symptoms were reported regarding the EENT system. Neuro: Level of Consciousness is awake, alert, obeys commands, Oriented to person, place, time, situation, Speech is slurred, pt has a slow speech, pt states she is taking pain medication . Cardiovascular: No deficits noted. Respiratory: No deficits noted. GI: Abdomen is round non-distended, PEG tube in place, Site reddened. Site with drainage. G-tube with yellow and green drainage Reports nausea, vomiting. : No deficits noted. No signs and/or symptoms were reported regarding the genitourinary system. Derm: No deficits noted. No signs and/or symptoms reported regarding the dermatologic system. Musculoskeletal: No deficits noted. No signs and/or symptoms reported regarding the musculoskeletal system. 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 - Social history:: Smoking status: Patient denies any tobacco usage or history of. Screenin/20 06:03 Abuse screen: Denies threats or abuse. Nutritional screening: No deficits noted. ll3 Tuberculosis screening: No symptoms or risk factors identified. Fall Risk None identified. Assessment: 07/13 22:55 General: Appears uncomfortable, Behavior is calm, cooperative. Pain: Complains of pain ll3 in abdomen Pain currently is 10 out of 10 on a pain scale. Neuro: Level of Consciousness is awake, alert, obeys commands, Oriented to person, place, time, situation. Cardiovascular: Patient's skin is warm and dry. GI: PEG tube in place, clamped. to gravity drainage. Site reddened. Site with drainage. Pt reports pain 10/10 site. Derm: Skin is Leaking clear fluid at g-tube site. Musculoskeletal: Swelling present in right leg and left leg. 07/14 01:09 Reassessment: No changes from previously documented assessment. Patient and/or family ll3 updated on plan of care and expected duration. Pain level reassessed. Patient is alert, oriented x 3, equal unlabored respirations, skin warm/dry/pink. 02:34 Reassessment: No changes from previously documented assessment. Patient and/or family ll3 updated on plan of care and expected duration. Pain level reassessed. Patient is alert, oriented x 3, equal unlabored respirations, skin warm/dry/pink. 03:54 Reassessment: No changes from previously documented assessment. Patient and/or family ll3 updated on plan of care and expected duration. Pain level reassessed. Patient is alert, oriented x 3, equal unlabored respirations, skin warm/dry/pink. 05:00 Reassessment: No changes from previously documented assessment. Patient and/or family ll3 updated on plan of care and expected duration. Pain level reassessed. Patient is alert, oriented x 3, equal unlabored respirations, skin warm/dry/pink. 06:33 Reassessment: No changes from previously documented assessment. Patient and/or family ll3 updated on plan of care and expected duration. Pain level reassessed. Patient is alert, oriented x 3, equal unlabored respirations, skin warm/dry/pink. 07:10 General: Appears uncomfortable, Behavior is cooperative. Pain: Complains of pain in em6 left leg and right leg and abdomen Pain currently is 10 out of 10 on a pain scale. Neuro: Level of Consciousness is awake, alert, obeys commands, Oriented to person, place, time, situation. Cardiovascular: Patient's skin is warm and dry. Respiratory: Airway is patent Respiratory effort is even, unlabored, Respiratory pattern is regular, symmetrical, Breath sounds are clear bilaterally. GI: PEG tube in place, clamped. to gravity drainage. Site reddened. Site with drainage. : No signs and/or symptoms were reported regarding the genitourinary system. EENT: No signs and/or symptoms were reported regarding the EENT system. Derm: Skin is redenned at peg tube site with drainage. gauze in place. Musculoskeletal: Swelling present in right leg and left leg. 08:10 Reassessment: No changes from previously documented assessment. Patient and/or family em6 updated on plan of care and expected duration. Pain level reassessed. 08:40 Reassessment: gave report to te (EMS that's transporting patient) . em6 Vital Signs: 07/13 21:52 BP 123 / 80; Pulse 82; Resp 16; Temp 98.2(O); Pulse Ox 100% on R/A; Weight 85.28 kg bm7 (R); Height 5 ft. 7 in. (170.18 cm) (R); Pain 10/10; 23:30 BP 120 / 80; Pulse 87; Resp 17; Pulse Ox 100% on R/A; ll3 07/14 01:24 BP 112 / 82; Pulse 81; Resp 17; Pulse Ox 99% on R/A; ll3 02:34 BP 122 / 85; Pulse 86; Resp 18; Pulse Ox 98% on R/A; ll3 03:54 BP 127 / 81; Pulse 94; Resp 17; Pulse Ox 100% on R/A; ll3 05:30 BP 120 / 78; Pulse 93; Resp 18; Pulse Ox 98% on R/A; ll3 06:33 BP 114 / 84; Pulse 86; Resp 18; Pulse Ox 96% on R/A; ll3 07:10 BP 123 / 82; Pulse 93; Resp 18; Pulse Ox 100% on R/A; em6 08:10 BP 116 / 86; Pulse 76; Resp 16; Pulse Ox 100% on R/A; em6 07/13 21:52 Body Mass Index 29.45 (85.28 kg, 170.18 cm) bm7 ED Course: 07/13 21:12 Patient arrived in ED. bp1 21:55 Triage completed. bm7 21:56 Arm band placed on right wrist. bm7 22:55 Zachary Campo MD is Attending Physician. kdr 23:27 Omar Olivarez RN is Primary Nurse. ll3 07/14 03:19 CT Abd/Pelvis - IV Contrast Only In Process Unspecified. EDMS 04:44 transfer initiated by [facility] with Lisseth from the [facility] transfer Center. eb 05:25 SARS RAPID Sent. tw5 06:03 Patient has correct armband on for positive identification. Placed in gown. Bed in low ll3 position. Call light in reach. Side rails up X 1. Adult w/ patient. Client placed on continuous cardiac and pulse oximetry monitoring. NIBP monitoring applied. 06:03 No provider procedures requiring assistance completed. ll3 06:04 connected the hospitalist operations research analyst for [facility] with Dr. Campo for patient transfer eb consultation. 08:30 Primary Nurse role handed off by Omar Olivarez, TERRANCE jl7 08:54 Patient transferred, IV remains in place. em6 Administered Medications: 07/13 23:41 Drug: Zofran (Ondansetron) 4 mg Route: IVP; Site: right antecubital; ll3 07/14 01:09 Drug: Dilaudid (HYDROmorphone) 1 mg Route: IVP; Site: right forearm; ll3 01:09 Drug: Pepcid (famotidine) 20 mg Route: IVP; Site: right forearm; ll3 03:14 Drug: Dilaudid (HYDROmorphone) 2 mg Route: IVP; Site: left forearm; ll3 03:51 Drug: NS 0.9% 1000 ml Route: IV; Rate: 125 ml/hr; Site: left forearm; ll3 05:59 Drug: NS 0.9% 500 ml Route: IV; Rate: bolus; Site: left antecubital; ll3 05:59 Drug: Zofran (Ondansetron) 4 mg Route: IVP; Site: left antecubital; ll3 07:23 CANCELLED (Physician Discretion): Dilaudid (HYDROmorphone) 2 mg IVP once jd3 08:20 Drug: Dilaudid (HYDROmorphone) 2 mg Route: IVP; Site: left antecubital; em6 08:37 Follow up: Response: No adverse reaction; RASS: Alert and Calm (0) em6 Medication: 06:04 VIS not applicable for this client. ll3 Outcome: 04:49 ER care complete, transfer ordered by . kdr 08:51 Transferred by ground EMS to [facility]. em6 08:51 Condition: stable 08:51 Discharge instructions given to patient, EMS, Instructed on the need for transfer, Demonstrated understanding of instructions. 08:56 Patient left the ED. em6 Signatures: Dispatcher [employer] EDMS Zachary Campo MD MD kdr Leal, Jahala RN RN guera7 Angelina Sepulveda Brittany bp1 McCarthy, Brittany, TERRANCE RN 7 Lupe Milner 5 Omar Olivarez RN RN ll3 Mamie Andrews RN RN em6 Patrick Lewis RN jd3
[2022-07-14 05:50] LABS: SARS-CoV-2 Antigen Rapid Res Negative (Negative)
[2022-07-14] MEDS ORDERED: NA CHLORIDE 0.9% 500 ML ONE (05:58)
[2022-07-14] MEDS ORDERED: ONDANSETRON 4 MG/2 ML VIAL ONE (05:58)
[2022-07-14 09:11] VITALS: TEMP 98.2
[2022-07-14 09:44] VITALS: O2SAT 100
[2022-07-14 09:46] VITALS: BP 116/86
--- NOTE | 2022-07-14 16:50 | RAD REPORT ---
EXAM DESCRIPTION: CT - Abdomen Pelvis W Contrast - 07/14/2022 6:37 am CLINICAL HISTORY: 42 years Female Abdominal pain, acute, nonlocalized, history of small bowel obstru ction, gastric sleeve procedure, hernia repair and hysterectomy TECHNIQUE: Axial CT imaging of the abdomen and pelvis was performed following the administration of intravenous contrast.. Oral contrast was not administered. Sagittal and coronal reconstructed image s were then performed. The CT study is performed according to ALARA (as low as reasonably achievabl e) or ALARA/IMAGE GENTLY, with automatic adjustment of mA and/or kV according to patient size. Performed on: 07/14/2022 at 3:08 AM. COMPARISON: 06/29/2022 FINDINGS: Lung bases: The lung bases are clear. There is a punctate right lower lobe calcified granu darrell. Liver: Liver measures approximately 18.6 cm in craniocaudal dimension. No focal hepatic abnormalities are identified. There is diffusely decreased attenuation of the liver, commonly due to fatty infiltr ation. The hepatic and portal veins are patent. Spleen: The spleen is normal is size, configuration and attenuation. Gallbladder and bile duct: The gallbladder is surgically absent. There is no biliary ductal dilatat ion. Pancreas: The pancreas is grossly normal in size and configuration. Adrenal Glands: The adrenal glands are normal in size and configuration. Kidneys: The kidneys are normal in size and configuration. There is no evidence of hydronephrosis. Th ere is a punctate nonobstructing right renal calculus. No definite solid or cystic renal mass lesions are identified. Stomach: There are postsurgical changes of the stomach. There is a percutaneous gastrostomy tube wi thin the stomach. The catheter portion of the tube is coiled in the stomach. There is no definite hia radha hernia. There is a fluid collection within the subcutaneous soft tissues along the anterior abdom inal wall which contains some locules of air. This measures approximately 3.2 x 1.9 cm in cross-secti onal diameter by approximately 9 cm in craniocaudal dimension and is concerning for an abscess. Bowel: The bowel gas pattern is non specific and non obstructive. There are postsurgical changes in t he region of the ascending colon and small bowel in the left hemiabdomen. There is a dilated fluid-fi lled small bowel loop in the left hemiabdomen and there are fecalized small bowel loops particularly in the left hemiabdomen. Findings may be related to an ileus or partial small bowel obstruction. Appendix: The appendix is not identified and may be surgically absent. Free air: There is no evidence of free air. Free fluid: There is no evidence of free fluid. Vasculature: The aorta is normal in caliber and contour. The inferior vena cava is grossly unremarkab le. Lymphadenopathy: No pathologic lymphadenopathy is identified. Bladder: The bladder is well distended and smooth in contour. Reproductive: The uterus is surgically absent. Bones: No acute osseous abnormalities are identified. Soft tissues: There are postsurgical changes along the anterior abdominal wall. See above regarding s uspected abscess along the anterior abdominal wall in the midline. There is infiltration of the subcu taneous fat most consistent with edema IMPRESSION: 1. There is a fluid collection within the subcutaneous soft tissues along the anterior abdominal wall which contains some locules of air. This measures approximately 3.2 x 1.9 x 9 cm and is concerning for an abscess. This is similar when compared to the prior study but contains more flui d at this time and is better defined than on the prior study. 2. The percutaneous gastrostomy tube is satisfactory in position but the catheter portion of the tu be appears coiled in the stomach. Correlate clinically. 3. There are postsurgical changes of the stomach, ascending colon and small bowel. There is a dilat ed fluid-filled small bowel loop in the left hemiabdomen and there are fecalized small bowel loops pa rticularly in the left hemiabdomen. Findings may be related to an ileus or partial small bowel obstru ction. 4. Fatty infiltration of the liver. 5. Punctate nonobstructing right renal calculus. 6. Remote cholecystectomy, hysterectomy and probable appendectomy. Electronically signed by: Virginia Campa DO 07/14/2022 4:27 AM CDT Due to temporary technical issues with the PACS/Fluency reporting system, reports are being signed by the in house radiologists without review as a courtesy to insure prompt reporting. The interpreting radiologist is fully responsible for the content of the report.
== END 2022-07-14 08:56 | disposition short-term general hospital (02) ==
LOC: ER 21:07
DX: K56.600 Partial intestinal obstruction, unspecified as to cause (principal); K94.29 Other complications of gastrostomy; Z20.822 Contact with and (suspected) exposure to COVID-19
CPT/HCPCS: 85025; 36415; 82565; 83690; 80053; 74177; 99285; 87811; Q9967; J1170 ×3; J7040; J2405 ×2

== ENCOUNTER 2022-08-11 15:09 | Emergency (ER) | payer SELFPAY ==
--- OUTSIDE RECORDS SUMMARY | 2022-08-11 15:16 | XMS REPORT | Continuity of Care Document ---
:1980 Author Organization [facility] t Address [address] [place] [address] Dr. Hood [address] [place] [id number] Care Team Providers Name Role Phone BEN COTTO Primary Care Physician Unavailable BEN COTTO Attending Clinician Unavailable Doctor Unassigned, [place] Attending Clinician Unavailable Ben Cotto MD Attending Clinician ETHAN MORGAN Attending Clinician Unavailable Randi SIMPSON, Arely Attending Clinician Suma Burleson MD Attending Clinician Faye Canales MD Attending Clinician Ronny SIMPSON, Maude Cotton Attending Clinician Lynn SIMPSON, Ethan Attending Clinician ARELY SPIVEY Attending Clinician Unavailable Geraldine SIMPSON, Liz Merritt Attending Clinician [phone] MARSHALL DOWD Attending Clinician Unavailable Nurse, [facility] Attending Clinician Unavailable Unknown, Attending Attending Clinician Unavailable Green CARDIOLOGY SPECIALIST, Marshall Attending Clinician Ebrahiyo CARDIOLOGY SPECIALIST, Sita Attending Clinician EBSITA NIELSEN Attending Clinician Unavailable JIM GÓMEZ Attending Clinician Unavailable Harshal SALES CONSULTING DIRECTOR, Jim Devlin Attending Clinician LESTER, PATIENCE KRUEGER Attending Clinician Unavailable Latrice SIMPSON, Rigo Song Attending Clinician [phone] Kanchan SIMPSON, Ashwini Arce Attending Clinician Carline SIMPSON, Mary Escobar Attending Clinician Lester SIMPSON, Patience Krueger Attending Clinician Braulio SIMPSON, Arabella Hartley Attending Clinician RIGO POLLARD Attending Clinician Unavailable Joceline SIMPSON, Rashid Blair Attending Clinician SUMA BURLESON Admitting Clinician Unavailable ARABELLA MEDINA Admitting Clinician Unavailable Payers Payer Name Policy Type Policy Number Effective Date Expiration Date S our BCBS [facility] - [id number] 2022 00:00:00 OUT OF STATE BCBS OS [id number] 2022 00:00:00 POS/PPO/EPO OUT OF STATE [id number] 2022 00:00:00 BCBS - PPO - BCBS Problems Condition Condition Condition Status Onset Resolution Last Treating Co mments Source Name Details Category Date Date Treatment Clinician Date SBO (small SBO (small Disease Active [facility] bowel bowel 7[facility]14 [facility] obstructio obstructio 00:00: Me dical n) n) 00 Center Generalize Generalize Disease Active U nivers d d 7-09 [place] abdominal abdominal [place] Obesity Obesity Disease Active Univers (BMI (BMI 7-09 ity of 30-39.9) 30-39.9) 00:00: [place] 00 Medical Branch Infection Infection Disease Active Uni vers of canine of canine 4-29 ity of space space 00:00: [place] [facility] Low Low Disease Active 2018-11 [facility] vitamin vitamin 1-04 ity of B12 level B12 level 00:00[place] Other Other Disease Active 2018-11 Univers dietary dietary 0-07 ity of vitamin vitamin 00:00: [place] B12 B12 00 Medical deficiency deficiency Br anch anemia anemia Elevated Elevated Disease Active 2018-11 Unive rs blood blood 0-07 ity of pressure pressure 00:00: [place] reading reading Medical Branch Vertigo Vertigo Disease Active 2018-11 Univers 0-07 ity of 00:00: [place] 00 Medical Branch Encounter Encounter Disease Active Met hodi for for 3-27 st cosmetic cosmetic 00:00: Hospit a surgery surgery 00 l Lipodystro Lipodystro Disease Active M ethodi phy phy 3-26 st 00:00: Hospita 00 l Diarrhea Diarrhea Disease Active Metho di 6-12 st 00:00: Hospita 00 l Ventral Ventral Disease Active Methodi hernia, hernia, 4-19 st recurrent recurrent 00:00: Hosp reshma 00 l Endometrio Endometrio Disease Active U nivers sis sis 4-14 ity of 00:00: [place] [facility] Diarrhea Diarrhea Disease Active Unive rs 3-29 ity of 00:00: [place] 00 Medical Branch Anxiety Anxiety Disease Active 2014-11 Univers 2-08 ity of 00:00: [place] [facility] Allergic Allergic Disease Active 2014-11 Unive rs rhinitis rhinitis 2-08 ity of 00:00: [place] [facility] Chronic Chronic Disease Active 2014-11 Univers pain pain 2-08 ity of 00:00: [place] 00 Medical Branch Edema Edema Disease Active 2014-11 Univers 2-08 ity of 00:00: [place] [facility] Upper Upper Disease Active 2014-11 Univers respirator respirator 2-08 it y of y y 00:00: [place] infection infection 00 [facility] Branch Malaise Malaise Disease Active 2014-11 Univers [...] Adnexal Adnexal Disease Active Univers mass mass 4- ity of 00:00: [place] 00 Medical Branch Abnormal Abnormal Disease Active Unive rs uterine uterine 4 ity of bleeding bleeding 00:00: [place] [facility] Dysmenorrh Dysmenorrh Disease Active U nivers ea ea 4 ity of 00:00: [place] [facility] Family Family Disease Active Univers history of history of 03-21 it y of breast breast 00:00: [place] cancer in cancer in 00 [facility] first first Branch degree degree relative relative Morbid Morbid Disease Active Univers obesity obesity 4 ity of with BMI with BMI 00:00: [place] of of 00 Medical 50.0-59.9, 50.0-59.9, Br anch adult adult Allergies, Adverse Reactions, Alerts Allergy Allergy Status Severity Reaction(s) Onset Inactive Treating Comm ents Source Name Type Date Date Clinician Latex Propensi Active [facility] ty to 8-02 [place] adverse 00:00: of reaction 00 Medicin s to e substanc e Adhesive Propensi Active [facility] 7[facility]14 [facility] adverse 00:00: Medical reaction 00 Center s Latex Propensi Active [facility] ty to 7-14 [facility] adverse 00:00: Medical reaction 00 Center s ADHESIVE Allergy Active [facility] 7[facility]14 [facility] 00:[facility]: Medical 00 Center LATEX Allergy Active [facility] 7[facility]14 [facility] 00:[facility]: Medical 00 Center LATEX DRUG Active Unknown-Cmnt Univ ers INGREDI 7-14 ity of 00:00: [place] 00 Medical Branch Adhesive Propensi Active Blisters, Met hodi Tape-Stephanie ty to 5-[address] icones adverse 00:00: Hospita reaction 00 l s to drug Adhesive Propensi Active Unknown - Rash, Uni [...] 00:00: [place] reaction 00 Medical s Branch Adhesive Propensi Active Unknown - Rash, Uni vers Tape-Stephanie ty to See comments 3-29 whelpsBli ity of icones adverse 00:00: sters, [place] reaction 00 scar Medical s Branch Family History Family Member Diagnosis Comments Start Date Stop Date Source Paternal grandfather Rectal cancer M [facility] [place] [facility] Paternal grandfather Colon cancer Me [facility] Paternal grandfather Liver cancer Me [facility] Paternal grandmother Colon cancer Me [facility] Paternal grandmother Rectal cancer M [facility] [place] [facility] Natural brother No Known Problems Me [facility] [place] [facility] Natural father No Known Problems Met [facility] Maternal grandfather Kidney cancer [facility] Maternal grandmother Bone cancer Met [facility] Natural mother Breast cancer [facility] Social History Social Habit Start Date Stop Date Quantity Comments Source History SDOH University o f Alcohol Frequency [place] M edical Branch History SDOH University o f Alcohol Std [place] Medical Drinks Branch History SDOH University o f Alcohol Binge [place] [facility] al Branch History SDOH [facility]-Med Medical [facility] History SDOH [facility] Housing [facility] Medical Ce nter Lived Exposure to 2022-07-04 2022-07-[address] [facility] SARS-CoV-2 00:00:00 11:10:00 Medical Center (event) Tobacco use and 2022-07-14 2022-07-[address] [facility] [address] [facility] kes exposure 00:00:00 00:00:00 Medical Center History SDOH 2022-06-07 2022-06-07 [facility]00:[address] History [facility] 2022-06-07 2022-06-07 2 [facility] Housing Unable to 00:00:00 00:00:00 Medical Center Pay History SDSC 2022-06-07 2022-06-07 [facility] Hom[facility] 00:[facility]:00 00:00:00 Medical Center Last Year Alcohol intake 2018-04-09 2018-04-09 Current drinker [place] [facility] 00:00:00 00:00:00 of alcohol (finding) Alcohol Comment 2017-03-07 2017-03-07 once a month [facility] 00:00:00 00:00:00 Sex [birth year] [facility] 00:00:00 00:00:00 Smoking Status Start Date Stop Date Source Never smoker [facility] Med ical Center Medications Ordered Filled Start Stop Current Ordering Indication Dosage Frequency Signature Comments Components Source Medication Medication Date Date Medication? Clinician (SIG) Name Name HYDROcodone Yes 2745 1{tbl} Take 1 Un dickson -acetaminop 9-06 tablet by ity of hen 10-325 00:00: mouth [place] mg tablet 00 every 4 Medical (four) Branch hours as needed for Pain (scale 4-6). Indication s: chronic pain HYDROcodone Yes [id number] 1{tbl} Take 1 Un dickson -acetaminop 9-06 tablet by ity of hen 10-325 00:00: mouth [place] mg tablet 00 every 4 Medical (four) Branch hours as needed for Pain (scale 4-6). Indication s: chronic pain HYDROcodone Yes [id number] 1{tbl} Take 1 Un dickson -acetaminop 9-06 tablet by ity of hen 10-325 00:00: mouth [place] mg tablet 00 every 4 Medical (four) Branch hours as needed for Pain (scale 4-6). Indication s: chronic pain lidocaine Yes PLACE ONE [facility] (LIDODERM) 9-06 PATCH ONTO [place] 5 % patch 00:00: SKIN ONCE Med ical 00 DAILY FOR Center 30 DAYS. REMOVE AND DISCARD PATCH WITHIN 12 HOURS OR DIRECTED BY . fentaNYL 2022-0 2022- No 1{patch Place [address] (DURAGESIC) 07-26 } patch onto L ukes 50 mcg/hr 00:00: 00:00 the skin Med ical patch 00 :00 every Center third day for 30 days. Max Daily Amount: 1 patch gabapentin 2021- Yes 100mg [id number] Take [address] [facility] [address] (NEURONTIN) 07-25 [id number] capsule [facility] 100 MG 00:00: 23:59 3D (100 mg Medical capsule 00 :00 total) by Center mouth 3 (three) times daily for 30 days. ALPRAZolam 2021- Yes 2mg Take [address] [facility] (XANAX) 2 07-25 tablet (2 Luke s MG tablet 00:00: 23:59 mg total) Me dical 00 :00 by mouth 2 Center (two) times daily as needed for up to 30 days. Max Daily Amount: 4 mg amoxicillin 2021- Yes 1{tbl} Take [address] -clavulanat 07-25 tablet by Rosmery jarred e 00:00: 23:59 mouth Medical (AUGMENTIN) 00 :00 every 12 Cent er 875-125 mg (twelve) per tablet hours for 30 days. dicyclomine 2021- Yes 20mg Take [address] [facility] [address] (BENTYL) 10 07-25 capsules [place] MG capsule 00:00: 23:59 (20 mg Medi lynsey 00 :00 total) by Center mouth 2 (two) times daily as needed (abdominal cramping) for up to 30 days. lidocaine 2021- Yes 1{patch Q24H Place [address] (LIDODERM) 07-25 } patch onto Rosmery kes 5 % patch 00:00: 23:59 the skin Med ical 00 :00 daily for Center 30 days Remove & Discard patch within 12 hours or as directed by . fentaNYL 2021- No 1{patch Place [address] (DURAGESIC) 07-25 } patch onto L ukes 50 mcg/hr 00:00: 23:59 the skin Med ical patch 00 :00 every Center third day for 15 days. Max Daily Amount: 1 patch oxyCODONE 2021- No 30mg Take 1 [facility] (ROXICODONE 07-25 tablet (30 L ukes ) 30 MG 00:00: 23:59 mg total) Medi [place] immediate 00 :00 by mouth Center release every 6 tablet (six) hours as needed for up to 10 days. Max Daily Amount: 120 mg nystatin 2021- No [id number] Q.25D Take [address] (MYCOSTATIN 07-25 (500,000 [place] ) 100,000 00:00: 23:59 Units Medica l unit/mL 00 :00 total) by Center suspension mouth 4 (four) times daily for 10 days. tiZANidine 2021- No 2mg Take [address] [facility] (ZANAFLEX) 07-25 tablet (2 [place] 2 MG tablet 00:00: 23:59 mg total) Medical 00 :00 by mouth Center every 8 (eight) hours as needed for up to 10 days. ondansetron 2021- No 4mg Take [address] [facility] (ZOFRAN-ODT 07-25 tablet (4 [place] kes ) 4 MG 00:00: 23:59 mg total) Medic al disintegrat 00 :00 by mouth Cent er ing tablet every 8 (eight) hours as needed for up to 7 days. lidocaine 2021- No 1{patch Q24H Place [address] (LIDODERM) 07-25 } patch onto Ros[facility] kes 5 % patch 00:00: 00:00 the skin Med ical 00 :00 daily for Center 30 days Remove & Discard patch within 12 hours or as directed by . polyethylen 2021- No 17g Q.5D Take [address] [facility] e glycol 07-25 by mouth 2 Luke s (GLYCOLAX) 00:00: 23:59 (two) Medic al 17 gram 00 :00 times Center packet daily for 3 days. ALPRAZolam Yes [id number] 2mg Take 1 U nivers 2 mg tablet 8-24 tablet by ity of 00:00: mouth 2 [place] 00 (two) Medical times Branch daily as needed for Sleep or Anxiety. dextroamphe Yes [id number] 30mg Take 1 Univers tamine-amph 8-24 tablet by ity of etamine 30 00:00: mouth in [place] as mg tablet 00 the Medical morning. Branch ALPRAZolam 2021-0 Yes [id number] 2mg Take 1 U nivers 2 mg tablet 8-24 tablet by ity of 00:00: mouth 2 [place] 00 (two) Medical times Branch daily as needed for Sleep or Anxiety. dextroamphe 2021-0 Yes [id number] 30mg Take 1 Univers tamine-amph 8-24 tablet by ity of etamine 30 00:00: mouth in [place] as mg tablet 00 the Medical morning. Branch ALPRAZolam 2021-0 Yes [id number] 2mg Take 1 U nivers 2 mg tablet 8-24 tablet by ity of 00:00: mouth 2 [place] 00 (two) Medical times Branch daily as needed for Sleep or Anxiety. dextroamphe 2021-0 Yes [id number] 30mg Take 1 Univers tamine-amph 8-24 tablet by ity of etamine 30 00:00: mouth in [place] as mg tablet 00 the Medical morning. Branch ALPRAZolam 2021-0 Yes [id number] 2mg Take 1 U nivers 2 mg tablet 8-24 tablet by ity of 00:00: mouth 2 [place] 00 (two) Medical times Branch daily as needed for Sleep or Anxiety. dextroamphe 2021-0 Yes [id number] 30mg Take 1 Univers tamine-amph 8-24 tablet by ity of etamine 30 00:00: mouth in [place] as mg tablet 00 the Medical morning. Branch ALPRAZolam 2021-0 Yes [id number] 2mg Take 1 U nivers 2 mg tablet 8-24 tablet by ity of 00:00: mouth 2 [place] 00 (two) Medical times Branch daily as needed for Sleep or Anxiety. dextroamphe 2021-0 Yes [id number] 30mg Take 1 Univers tamine-amph 8-24 tablet by ity of etamine 30 00:00: mouth in [place] as mg tablet 00 the Medical morning. Branch oxyCODONE 0 2- No 5mg Take 1 [facility] (OXY-IR) 5 8-16 08-31 capsule (5 [place] kes mg capsule 00:00: 00:00 mg total) M edical 00 :00 by mouth Center every 4 (four) hours as needed for up to 10 days. Max Daily Amount: 30 mg HYDROcodone 2021-0 Yes [id number] 1{tbl} Take 1 Un dickson -acetaminop 8-08 tablet by ity of hen 10-325 00:00: mouth [place] mg tablet 00 every 4 Medical (four) Branch hours as needed for Pain (scale 4-6). Indication s: chronic pain ondansetron 2021-0 Yes [id number] 4mg Take 1 Univers 4 mg 8-08 tablet by ity of disintegrat 00:00: mouth [place] ing tablet 00 every 8 Medica l (eight) Branch hours as needed for Nausea and Vomiting (N/V). hydrocortis 2021-0 Yes [id number] Apply to Univers one 2.5 % 8-08 area(s) 2 ity o f cream 00:00: (two) [place] 00 times Medical daily as Branch needed for Rash. HYDROcodone 2021-0 Yes [id number] 1{tbl} Take 1 Un dickson -acetaminop 8-08 tablet by ity of hen 10-325 00:00: mouth [place] mg tablet 00 every 4 Medical (four) Branch hours as needed for Pain (scale 4-6). Indication s: chronic pain ondansetron 2021-0 Yes [id number] 4mg Take 1 Univers 4 mg 8-08 tablet by ity of disintegrat 00:00: mouth [place] ing tablet 00 every 8 Medica l (eight) Branch hours as needed for Nausea and Vomiting (N/V). hydrocortis 2021-0 Yes [id number] Apply to Univers one 2.5 % 8-08 area(s) 2 ity o f cream 00:00: (two) [place] 00 times Medical daily as Branch needed for Rash. HYDROcodone 2021-0 Yes [id number] 1{tbl} Take 1 Un dickson -acetaminop 8-08 tablet by ity of hen 10-325 00:00: mouth [place] mg tablet 00 every 4 Medical (four) Branch hours as needed for Pain (scale 4-6). Indication s: chronic pain ondansetron 2021-0 Yes [id number] 4mg Take 1 Univers 4 mg 8-08 tablet by ity of disintegrat 00:00: mouth [place] ing tablet 00 every 8 Medica l (eight) Branch hours as needed for Nausea and Vomiting (N/V). hydrocortis 2021-0 Yes [id number] Apply to Univers one 2.5 % 8-08 area(s) 2 ity o f cream 00:00: (two) [place] 00 times Medical daily as Branch needed for Rash. HYDROcodone 0 Yes [id number] 1{tbl} Take 1 Un dickson -acetaminop 8-08 tablet by ity of hen 10-325 00:00: mouth [place] mg tablet 00 every 4 Medical (four) Branch hours as needed for Pain (scale 4-6). Indication s: chronic pain ondansetron 2021-0 Yes [id number] 4mg Take 1 Univers 4 mg 8-08 tablet by ity of disintegrat 00:00: mouth [place] ing tablet 00 every 8 Medica l (eight) Branch hours as needed for Nausea and Vomiting (N/V). hydrocortis Yes [id number] Apply to Univers one 2.5 % 8-08 area(s) 2 ity o f cream 00:00: (two) [place] 00 times Medical daily as Branch needed for Rash. HYDROcodone 0 Yes [id number] 1{tbl} Take 1 Un dickson -acetaminop 8-08 tablet by ity of hen 10-325 00:00: mouth [place] mg tablet 00 every 4 Medical (four) Branch hours as needed for Pain (scale 4-6). Indication s: chronic pain ondansetron 2021-0 Yes [id number] 4mg Take 1 Univers 4 mg 8-08 tablet by ity of disintegrat 00:00: mouth [place] ing tablet 00 every 8 Medica l (eight) Branch hours as needed for Nausea and Vomiting (N/V). hydrocortis 2021-0 Yes [id number] Apply to Univers one 2.5 % 8-08 area(s) 2 ity o f cream 00:00: (two) [place] 00 times Medical daily as Branch needed for Rash. HYDROcodone 2021-0 Yes [id number] 1{tbl} Take 1 Un dickson -acetaminop 8-08 tablet by ity of hen 10-325 00:00: mouth [place] mg tablet 00 every 4 Medical (four) Branch hours as needed for Pain (scale 4-6). Indication s: chronic pain ondansetron 2021-0 Yes [id number] 4mg Take 1 Univers 4 mg 8-08 tablet by ity of disintegrat 00:00: mouth [place] ing tablet 00 every 8 Medica l (eight) Branch hours as needed for Nausea and Vomiting (N/V). hydrocortis 2021-0 Yes [id number] Apply to Univers one 2.5 % 8-08 area(s) 2 ity o f cream 00:00: (two) [place] 00 times Medical daily as Branch needed for Rash. ondansetron 2021-0 Yes [id number] 4mg Take 1 Univers 4 mg 8-08 tablet by ity of disintegrat 00:00: mouth [place] ing tablet 00 every 8 Medica l (eight) Branch hours as needed for Nausea and Vomiting (N/V). hydrocortis 2021-0 Yes [id number] Apply to Univers one 2.5 % 8-08 area(s) 2 ity o f cream 00:00: (two) [place] 00 times Medical daily as Branch needed for Rash. ondansetron 2021-0 Yes [id number] 4mg Take 1 Univers 4 mg 8-08 tablet by ity of disintegrat 00:00: mouth [place] ing tablet 00 every 8 Medica l (eight) Branch hours as needed for Nausea and Vomiting (N/V). hydrocortis 2021-0 Yes [id number] Apply to Univers one 2.5 % 8-08 area(s) 2 ity o f cream 00:00: (two) [place] 00 times Medical daily as Branch needed for Rash. ondansetron 2021-0 Yes [id number] 4mg Take 1 Univers 4 mg 8-08 tablet by ity of disintegrat 00:00: mouth [place] ing tablet 00 every 8 Medica l (eight) Branch hours as needed for Nausea and Vomiting (N/V). hydrocortis 2021-0 Yes [id number] Apply to Univers one 2.5 % 8-08 area(s) 2 ity o f cream 00:00: (two) [place] 00 times Medical daily as Branch needed for Rash. HYDROcodone 2021- No [id number] 1{tbl} Take 1 U nivers -acetaminop 8-07 03-06 tablet by it y of hen 10-325 00:00: 00:00 mouth [place] mg tablet 00 :00 every 4 Medical (four) Branch hours as needed for Pain (scale 4-6). Indication s: chronic pain nystatin 2021- Yes [id number] Take 1 mL [facility] (MYCOSTATIN 06-26 by mouth Col lege ) [id number] 00:00: 04:59 four times of UNIT/ML 00 :00 daily for Medicin suspension 7 days. e cefdinir 2021- Yes 300mg Take 300 Uni vers 300 mg 06-26-10 mg by ity of capsule 00:00: 04:59 mouth in [place] 00 :00 the Medical morning Branch and 300 mg in the evening. nystatin 2021- Yes [id number] Take Unive rs 100,000 06-26- 100,000 ity of unit/mL 00:00: 04:59 Units by [place] suspension 00 :00 mouth 4 Medica l (four) Branch times daily. cefdinir 2021- Yes 300mg Take 1 [facility] (OMNICEF) 06-26-10 capsule by Col lege 300 MG 00:00: 04:59 mouth two of capsule 00 :00 times Medicin daily for e 7 days. alprazolam Yes TAKE ONE [facility] (XANAX) 2 7-28 (1) TABLET Mickie ege MG tablet 00:00: BY MOUTH 2 of 00 (TWO) Medicin TIMES e DAILY NEEDED FOR SLEEP OR ANXIETY. famotidine Yes TAKE 1 [facility] (PEPCID) 20 7-26 TABLET (20 Co llege MG tablet 00:00: MG TOTAL) of 00 BY MOUTH Medicin EVERY 12 e (TWELVE) HOURS FOR 30 DAYS. gabapentin Yes TAKE ONE [facility] (NEURONTIN) 7-26 (1) College 100 MG 00:00: CAPSULE(S) of capsule 00 BY MOUTH Medicin THREE e TIMES A DAY. oxyCODONE 2021- No [facility]mg [facility] 1 [facility] (ROXICODONE 06-19 08-05 tablet (5 [place] kes ) 5 MG 00:00: 23:59 mg total) Medic al immediate 00 :00 by mouth Center release every 4 tablet (four) hours as needed for Pain for up to 10 days. Max Daily Amount: 30 mg Hydromorpho Yes 2mg Take 2 mg [facility] aylor ne HCl 1 7-25 by mouth. Colleg e MG/ML LIQD 00:00: of 00 Medicin e ondansetron Yes DISSOLVE [facility] (ZOFRAN-ODT 06-18 ONE (1) Colle ge ) 4 mg 00:00: TABLET(S) of disintegrat 00 BY MOUTH Medi connie ing tablet EVERY SIX e HOURS NEEDED. famotidine 2021-2021- No 20mg Take [address] [facility] (PEPCID) 20 06-18 tablet (20 L u[facility] MG tablet 00:00: 00:00 mg total) Me dical 00 :00 by mouth Center every 12 (twelve) hours for 30 days. gabapentin 2021-2021- No 100mg Q.[id number] Take [address] [facility] (NEURONTIN) 06-18 [id number] capsule [facility] 100 MG 00:00: 00:00 3D (100 mg Medical capsule 00 :00 total) by Center mouth 3 (three) times daily. HYDROmorpho 2021-2021- No 2mg Take [address] ne 1 mg/mL 06-18 (2 mg [facility] Liqd liquid 00:00: 00:00 total) by Medical 00 :00 mouth Center every 4 (four) hours as needed. Max Daily Amount: 12 mg ondansetron 2021-2021- No 4mg Take [address] [facility] (ZOFRAN-ODT 06-18 08- tablet (4 [place] kes ) 4 MG 00:00: 23:59 mg total) Medic al disintegrat 00 :00 by mouth Cent er ing tablet every 6 (six) hours as needed for up to 7 days. famotidine 2021-0 2021- No 20mg Take [address] [facility] (PEPCID) 20 06-18 07-25 tablet (20 [facility] MG tablet 00:00: 00:00 mg total) Me dical 00 :00 by mouth Center every 12 (twelve) hours for 30 days. gabapentin 2021-0 2021- No 100mg [id number] Take [address] [facility] (NEURONTIN) 06-18 07-25 [id number] capsule [facility] 100 MG 00:00: 00:00 3D (100 mg Medical capsule 00 :00 total) by Center mouth 3 (three) times daily. HYDROmorpho No 2mg Take [address] ne 1 mg/mL 06-18-25 (2 mg [facility] Liqd liquid 00:00: 00:00 total) by Medical 00 :00 mouth Center every 4 (four) hours as needed. Max Daily Amount: 12 mg ondansetron 2021- No 4mg Take [address] [facility] (ZOFRAN-ODT -18 06-25 tablet (4 [place] kes ) 4 MG 00:00: 00:00 mg total) Medic al disintegrat 00 :00 by mouth Cent er ing tablet every 6 (six) hours as needed for up to 7 days. dextroamphe Yes 1{tbl} QD Take [address] tamine-amph 7-10 tablet by [place] etamine 30 00:00: mouth Medica l mg Tab 00 daily. Center dextroamphe Yes [id number] 30mg Take 1 Univers tamine-amph 7-05 tablet by ity of etamine 30 00:00: mouth [place] mg tablet 00 daily. Medical Branch dextroamphe Yes [id number] 30mg Take 1 Univers tamine-amph 7-05 tablet by ity of etamine 30 00:00: mouth [place] mg tablet 00 daily. Medical Branch dextroamphe Yes [id number] 30mg Take 1 Univers tamine-amph 7-05 tablet by ity of etamine 30 00:00: mouth [place] mg tablet 00 daily. Medical Branch dextroamphe Yes [id number] 30mg Take 1 Univers tamine-amph 7-05 tablet by ity of etamine 30 00:00: mouth [place] mg tablet 00 daily. Medical Branch hydrocodone Yes TAKE ONE [facility] -acetaminop 7-05 (1) College hen (NORCO) 00:00: TABLET(S) o f 10-325 MG 00 BY MOUTH Medici n per tablet EVERY FOUR e HOURS NEEDED FOR CHRONIC PAIN. HYDROcodone 2021- No 1{tbl} Take [address] -acetaminop 7-05 08-31 tablet by [place] stern hen (NORCO 00:00: 00:00 mouth Medic al 10-325) 00 :00 every 4 Center 10-325 mg (four) per tablet hours as needed. dextroamphe 2021- No [id number] 30mg Take 1 Univers tamine-amph 05-2924 tablet by it y of etamine 30 00:00: 00:00 mouth [place] mg tablet 00 :00 daily. Medical Branch HYDROcodone 2021- No [id number] 1{tbl} Take 1 U nivers -acetaminop 05-29 tablet by it y of hen 10-325 00:00: 00:00 mouth [place] mg tablet 00 :00 every 4 Medical (four) Branch hours as needed for Pain (scale 4-6). Indication s: chronic pain ALPRAZolam 2021- No 2mg Take [address] (XANAX) 2 05-25 by mouth 2 [place] MG tablet 00:00: 00:00 (two) Medica l 00 :00 times Center daily as needed. ALPRAZolam Yes [id number] 2mg Take 1 U nivers 2 mg tablet 3-14 tablet by ity of 00:00: mouth 2 00 (two) Medical times Branch daily as needed for Sleep or Anxiety. ALPRAZolam Yes [id number] 2mg Take 1 U nivers 2 mg tablet 3-14 tablet by ity of 00:00: mouth 2 (two) Medical times Branch daily as needed for Sleep or Anxiety. ALPRAZolam Yes [id number] 2mg Take 1 U nivers 2 mg tablet 3-14 tablet by ity of 00:00: mouth 2 (two) Medical times Branch daily as needed for Sleep or Anxiety. ALPRAZolam Yes [id number] 2mg Take 1 U nivers 2 mg tablet 3-14 tablet by ity of 00:00: mouth 2 00 (two) Medical times Branch daily as needed for Sleep or Anxiety. ALPRAZolam 2021- No [id number] 2mg Take 1 Univers 2 mg tablet 3-14 -24 tablet by it y of 00:00: 00:00 mouth 2 [place] 00 :00 (two) Medical times Branch daily as needed for Sleep or Anxiety. hydrocortis Yes [id number] Apply to Univers one 1 % 05-29 affected ity of cream 00:00: area(s) [place] 00 daily. Medical Branch hydrocortis 2020-0 Yes [id number] Apply to Univers one 1 % 7-05 affected ity of cream 00:00: area() [place] 00 daily. Medical Branch hydrocortis 2020-0 Yes [id number] Apply to Univers one 1 % 7-05 affected ity of cream 00:00: area() [place] 00 daily. Medical Branch hydrocortis 2020-0 Yes [id number] Apply to Univers one 1 % 7-05 affected ity of cream 00:00: area() [place] 00 daily. Medical Branch hydrocortis 2020-0 Yes [id number] Apply to Univers one 1 % 7-05 affected ity of cream 00:00: area() [place] 00 daily. Medical Branch hydrocortis 2020-0 Yes [id number] Apply to Univers one 1 % 7-05 affected ity of cream 00:00: [facility]() [place] 00 daily. Medical Branch hydrocortis 2020-0 Yes [id number] Apply to Univers one 1 % 7-05 affected ity of cream 00:00: area() [place] 00 daily. Medical Branch hydrocortis 2020-0 Yes [id number] Apply to Univers one 1 % 7-05 affected ity of cream 00:00: area() [place] 00 daily. Medical Branch hydrocortis 2020-0 Yes [id number] Apply to Univers one 1 % 7-05 affected ity of cream 00:00: [facility]() [place] 00 daily. Medical Branch EPINEPHrine 0 Yes .3mg 0.3 mg by U nivers 0.3 mg/0.3 7- Intramuscu ity of mL 00:00: lar route [place] injection 00 as needed. Medi [place]sey Branch EPINEPHrine 2020-0 Yes .3mg 0.3 mg by U nivers 0.3 mg/0.3 7- Intramuscu ity of mL 00:00: lar route [place] injection 00 as needed. Medi lynsey Branch EPINEPHrine 2020-0 Yes .3mg 0.3 mg by U nivers 0.3 mg/0.3 7- Intramuscu ity of mL 00:00: lar route [place] injection 00 as needed. Medi lynsey Branch EPINEPHrine 2020-0 Yes .3mg 0.3 mg by U nivers 0.3 mg/0.3 7-02 Intramuscu ity of mL 00:00: lar route [place] injection 00 as needed. [facility] Branch EPINEPHrine 2020-0 Yes .3mg 0.3 mg by U nivers 0.3 mg/0.3 7-02 Intramuscu ity of mL 00:00: lar route [place] injection 00 as needed. [facility] Branch EPINEPHrine 2020-0 Yes .3mg 0.3 mg by U nivers 0.3 mg/0.3 7-02 Intramuscu ity of mL 00:00: lar route [place] injection 00 as needed. [facility] Branch EPINEPHrine 2020-0 Yes .3mg 0.3 mg by U nivers 0.3 mg/0.3 7-02 Intramuscu ity of mL 00:00: lar route [place] injection 00 as needed. [facility] Branch EPINEPHrine 0 Yes .3mg 0.3 mg by U nivers 0.3 mg/0.3 7-02 Intramuscu ity of mL 00:00: lar route [place] injection 00 as needed. [facility] Branch EPINEPHrine 0 Yes .3mg 0.3 mg by U nivers 0.3 mg/0.3 7-02 Intramuscu ity of mL 00:00: lar route [place] injection 00 as needed. [facility] Branch fluticasone 2018-11 Yes [id number] 1{puff} Inhale 1 Univers propion-myla 2-04 Puff every it y of meterol 00:00: 12 [place] (ADVAIR 00 (twelve) Medical DISKUS) hours. Branch 250-50 mcg/dose inhalation disk fluticasone 2018-11 Yes [id number] 1{puff} Inhale 1 Univers propion-myla 2-04 Puff every it y of meterol 00:00: 12 [place] (ADVAIR 00 (twelve) Medical DISKUS) hours. Branch 250-50 mcg/dose inhalation disk fluticasone 2018-11 Yes [id number] 1{puff} Inhale 1 Univers propion-myla 2-04 Puff every it y of meterol 00:00: 12 [place] (ADVAIR 00 (twelve) Medical DISKUS) hours. Branch 250-50 mcg/dose inhalation disk fluticasone 2018-11 Yes [id number] 1{puff} Inhale 1 Univers propion-myla 2-04 Puff every it y of meterol 00:00: 12 [place] (ADVAIR 00 (twelve) Medical DISKUS) hours. Branch 250-50 mcg/dose inhalation disk fluticasone 2018-11 Yes [id number] 1{puff} Inhale 1 Univers propion-myla 2-04 Puff every it y of meterol 00:00: 12 [place] (ADVAIR 00 (twelve) Medical DISKUS) hours. Branch 250-50 mcg/dose inhalation disk fluticasone 2018-11 Yes [id number] 1{puff} Inhale 1 Univers propion-myla 2-04 Puff every it y of meterol 00:00: 12 [place] (ADVAIR 00 (twelve) Medical DISKUS) hours. Branch 250-50 mcg/dose inhalation disk fluticasone 2018-11 Yes [id number] 1{puff} Inhale 1 Univers propion-myla 2-04 Puff every it y of meterol 00:00: 12 [place] (ADVAIR 00 (twelve) Medical DISKUS) hours. Branch 250-50 mcg/dose inhalation disk fluticasone 2018-11 Yes [id number] 1{puff} Inhale 1 Univers propion-myla 2-04 Puff every it y of meterol 00:00: 12 [place] (ADVAIR 00 (twelve) Medical DISKUS) hours. Branch 250-50 mcg/dose inhalation disk fluticasone 2018-11 Yes [id number] 1{puff} Inhale 1 Univers propion-myla 2-04 Puff every it y of meterol 00:00: 12 [place] (ADVAIR 00 (twelve) Medical DISKUS) hours. Branch 250-50 mcg/dose inhalation disk No known No No known Metho di medications 5-[address] 08:17: s [facility] l Vital Signs Vital Name Observation Time Observation Value Comments Source HEIGHT 2022-07-14 11:00:00 172.7 cm WEIGHT 2022-07-14 11:00:00 101.56 kg HEIGHT 2022-07-14 11:00:00 172.7 cm WEIGHT 2022-07-14 11:00:00 101.56 kg HEIGHT 2022-07-14 11:00:00 172.7 cm WEIGHT 2022-07-14 11:00:00 101.56 kg Systolic blood 2022-07-05 20:08:00 115 mm[Hg] Univer sity of pressure [place] [facility] Diastolic blood 2022-07-05 20:08:00 80 mm[Hg] Unive rsity of pressure [place] [facility] Heart rate 2022-07-05 20:08:00 97 /min [facility] [place] [facility] Body temperature 2022-07-05 20:08:00 36.72 Cindy Univ ersity of [place] [facility] Respiratory rate 2022-07-05 20:08:00 18 /min Univ ersity of [place] [facility] Body height 2022-07-05 20:08:00 170.2 cm [facility] [place] [facility] Body weight 2022-07-05 20:08:00 96.253 kg [facility] [place] [facility] BMI 2022-07-05 20:08:00 33.24 kg/m2 [facility] [place] [facility] Oxygen saturation in 2022-07-05 20:08:00 93 /min University of Arterial blood by [place] [employer] lynsey Pulse oximetry Branch Systolic blood 2022-07-05 19:43:00 115 mm[Hg] Univer sity of pressure [place] [facility] Diastolic blood 2022-07-05 19:43:00 80 mm[Hg] Unive rsity of pressure [place] [facility] Heart rate 2022-07-05 19:43:00 97 /min [facility] [place] [facility] Body temperature 2022-07-05 19:43:00 36.72 Cindy Univ ers[facility] [place] [facility] Respiratory rate 2022-07-05 19:43:00 18 /min Univ ers[facility] [place] [facility] Body height 2022-07-05 19:43:00 170.2 cm [facility] [place] [facility] Body weight 2022-07-05 19:43:00 96.253 kg [facility] [place] [facility] BMI 2022-07-05 19:43:00 33.24 kg/m2 [facility] [place] [facility] Oxygen saturation in 2022-07-05 19:43:00 93 /min University of Arterial blood by [email or web address] lynsey Pulse oximetry Branch Systolic blood 2022-07-02 13:48:00 114 mm[Hg] Univer sity of pressure [place] [facility] Diastolic blood 2022-07-02 13:48:00 79 mm[Hg] Unive rsity of pressure [place] [facility] Heart rate 2022-07-02 13:48:00 85 /min [facility] Body weight 2022-07-02 13:48:00 94.802 kg [facility] BMI 2022-07-02 13:48:00 32.73 kg/m2 [facility] WEIGHT 2022-06-13 06:00:00 104.872 kg HEIGHT 2022-06-07 02:52:00 172.7 cm WEIGHT 2022-06-07 02:52:00 83.462 kg WEIGHT 2022-06-13 06:00:00 104.872 kg HEIGHT 2022-06-07 02:52:00 172.7 cm WEIGHT 2022-06-07 02:52:00 83.462 kg WEIGHT 2022-06-13 06:00:00 104.872 kg HEIGHT 2022-06-07 02:52:00 172.7 cm WEIGHT 2022-06-07 02:52:00 83.462 kg Systolic blood 2022-07-25 10:28:00 102 mm[Hg] [facility] Diastolic blood 2022-07-25 10:28:00 55 mm[Hg] [facility] Heart rate 2022-07-25 10:28:00 76 /min [facility] Body temperature 2022-07-25 10:28:00 35.56 Cindy [facility] Respiratory rate 2022-07-25 10:28:00 18 /min [facility] Oxygen saturation in 2022-07-25 10:28:00 99 /min [facility] Arterial blood by Medical Ce nter Pulse oximetry Body height 2022-07-14 11:00:00 172.7 cm [facility] Body weight 2022-07-14 11:00:00 101.56 kg [facility] BMI 2022-07-14 11:00:00 34.05 kg/m2 [facility] Procedures Procedure Date / Time Performing Clinician Source Performed EXTERNAL PROVIDER 2022-08-02 05:01:00 Doctor Unassigned, No Univ [facility] RECORDS Name Medical Branch CBC W/PLT COUNT & AUTO 2022-07-23 03:57:00 Maude Jefferson [facility] DIFFERENTIAL [place] COMPREHENSIVE METABOLIC 2022-07-23 03:57[facility] [place] CBC W/PLT COUNT & AUTO 2022-07-23 03:57:00 Maude Jefferson [facility] DIFFERENTIAL [place] MAGNESIUM 2022-07-21 02:23:00 [facility]OL[facility] 2022-07-21 02:23:00 [facility] [place] FL UPPER GI W SMALL 2022-07-20 18:30:00 Bekah Ferro [facility] BOWEL & KUB Center XR ABDOMEN / KUB 1 VIEW 2022-07-20 09:10:00 Bekah Ferro [facility] MAGNESIUM 2022-07-20 02:11:00 [facility] COMPREHENSIVE METABOLIC 2022-07-20 02:11:00 Ronny [facility] PANEL [place] MAGNESIUM 2022-07-19 05:32:00 [facility]OLIC 2022-07-19 05:32[facility] & AUTO 2022-07-18 03:37:00 [facility]ENTIAL [place] CBC W/PLT COUNT & AUTO 2022-07-18 03:37:00 [facility] [place] BASIC METABOLIC PANEL 2022-07-17 03:28:00 Faye Canales [facility] (7) Center CBC W/PLT COUNT & AUTO 2022-07-17 03:28:00 Faye Canales [facility] DIFFERENTIAL [place] CBC W/PLT COUNT & AUTO 2022-07-17 03:28:00 Faye Canales [facility] DIFFERENTIAL [place] EXTERNAL PROVIDER 2022-07-16 05:01:00 Doctor Unassigned, No Univ [facility] RECORDS Name Medical Branch US ABDOMEN DRAINAGE 2022-07-15 15:47:00 [facility] + 2022-07-15 15:39:00 Faye Canales [facility] GRAM STAIN Center PT/APTT 2022-07-15 11:29:00 Gale Cinthia [facility] [place] CBC W/PLT COUNT & AUTO 2022-07-15 08:04:00 Mike Duarte [facility] DIFFERENTIAL [facility] CBC W/PLT COUNT & AUTO 2022-07-15 08:04:00 Mike Duarte [facility] BASIC METABOLIC PANEL 2022-07-15 04:58:00 Suma Burleson [facility] () [place] MAGNESIUM 2022-07-15 04:58:00 Suma Burleson [facility] CBC W/PLT COUNT & AUTO 2022-07-14 11:42:00 Suma Burleson [facility] COMPREHENSIVE METABOLIC 2022-07-14 11:42:00 Suma Burleson [facility] PANEL Center MAGNESIUM 2022-07-14 11:42:00 Suma Burleson [facility] CBC W/PLT COUNT & AUTO 2022-07-14 11:42:00 Suma Burleson [facility] POCT-GLUCOSE METER 2022-06-18 11:47:00 LesterPatience [facility] POCT-GLUCOSE METER 2022-06-18 08:15:00 LesterPatience [facility] MAGNESIUM 2022-06-18 05:07:00 Queenie [facility] PHOSPHORUS 2022-06-18 05:07:00 Queenie [facility] CBC W/PLT COUNT & AUTO 2022-06-18 05:07:[address] [facility] BASIC METABOLIC PANEL 2022-06-18 05:07:00 [facility] [place] CBC W/PLT COUNT & AUTO 2022-06-18 05:07:00 Kolby Cabrera [facility] DIFFERENTIAL Center SCREEN, URINE 2022-06-17 22:34:[address] [facility] POCT-GLUCOSE METER 2022-06-17 22:31:00 Lester, [facility] POCT-GLUCOSE METER 2022-06-17 17:16:00 Lester, [facility] POCT-GLUCOSE METER 2022-06-17 13:46:00 Lester, [facility] POCT-GLUCOSE METER 2022-06-17 12:25:00 Lester, [facility] POCT-GLUCOSE METER 2022-06-17 08:17:00 Lesetr, [facility] MAGNESIUM 2022-06-17 03:41:00 [facility] 2022-06-17 03:41:00 [facility] CBC W/PLT COUNT & AUTO 2022-06-17 03:41:[address] [facility] BASIC METABOLIC PANEL 2022-06-17 03:41:00 Lester, [facility] () [place] CBC W/PLT COUNT & AUTO 2022-06-17 03:41:00 Kolby Cabrera [facility] POCT-GLUCOSE METER 2022-06-16 22:17:00 Lester, [facility] POCT-GLUCOSE METER 2022-06-16 17:00:00 Lester, [facility] POCT-GLUCOSE METER 2022-06-16 12:35:00 Lester, [facility] POCT-GLUCOSE METER 2022-06-16 09:17:00 [facility] 2022-06-16 06:06:00 Marcmanuel [facility] PHOSPHORUS 2022-06-16 06:06:00 Marc [facility] BASIC METABOLIC PANEL 2022-06-16 06:06:00 [facility] [place] CBC W/PLT COUNT & AUTO 2022-06-16 06:05:[address] [facility] CBC W/PLT COUNT & AUTO 2022-06-16 06:05:[address] [facility] BLOOD CULTURE 2022-06-16 01:42:[address] [facility] POCT-GLUCOSE METER 2022-06-16 01:13:00 Lester, [facility] BLOOD CULTURE 2022-06-16 01:02:00 Jettkberenice [facility] POCT-GLUCOSE METER 2022-06-15 17:15:00 Lester, [facility] C. DIFFICILE GDH TOXIN 2022-06-15 12:35:00 Lester, [facility] POCT-GLUCOSE METER 2022-06-15 12:25:00 Lester, [facility] POCT-GLUCOSE METER 2022-06-15 08:20:00 Lester, [facility] CBC W/PLT COUNT & AUTO 2022-06-15 05:18:[address] [facility] BASIC METABOLIC PANEL 2022-06-15 05:18:00 Lester, [facility] () [place] CBC W/PLT COUNT & AUTO 2022-06-15 05:18:00 Kolby Cabrera [facility] DIFFERENTIAL Center MAGNESIUM 2022-06-15 05:18:00 Queenie [facility] PHOSPHORUS 2022-06-15 05:18:00 [facility]SE METER 2022-06-14 22:09:00 Lester, [facility] POCT-GLUCOSE METER 2022-06-14 17:12:00 Lester, [facility] POCT-GLUCOSE METER 2022-06-14 12:28:00 Lester, [facility] POCT-GLUCOSE METER 2022-06-14 08:02:00 Lester, [facility] CBC W/PLT COUNT & AUTO 2022-06-14 04:52:00 Kolby Cabrera [facility] MAGNESIUM 2022-06-14 04:52:00 [facility]US 2022-06-14 04:52:00 [facility] CBC W/PLT COUNT & AUTO 2022-06-14 04:52:[address] [facility] BASIC METABOLIC PANEL 2022-06-14 04:52:00 Mary Crowley [facility] (7) [place] POCT-GLUCOSE METER 2022-06-13 21:55:00 Lester, [facility] POCT-GLUCOSE METER 2022-06-13 17:45:00 Lester, [facility] POCT-GLUCOSE METER 2022-06-13 11:17:00 Lester, [facility] SARS-COV2/RT-PCR ([facility] & 2022-06-13 05:10:00 Ashwini Hemphill [facility] REF LABS) [place] CBC W/PLT COUNT & AUTO 2022-06-13 03:24:[address] [facility] (CELLAVISION MANUAL 2022-06-13 03:24:[address] [facility] Medical DIFF) [place] MAGNESIUM 2022-06-13 03:24:00 Marc [facility] PHOSPHORUS 2022-06-13 03:24:00 [facility] CBC W/PLT COUNT & AUTO 2022-06-13 03:24:[address] [facility] BASIC METABOLIC PANEL 2022-06-13 03:24:00 Mary Crowley [facility] (7) [place] POCT-GLUCOSE METER 2022-06-13 00:59:00 [facility] W/[facility]T [facility] & AUTO 2022-06-12 04:06:[address] [facility] (CELLAVISION MANUAL 2022-06-12 04:06:00 Kolby Cabrera [facility]) [place] MAGNESIUM 2022-06-12 04:06:00 Marc [facility] PHOSPHORUS 2022-06-12 04:06:00 [facility] CBC W/PLT COUNT & AUTO 2022-06-12 04:06:[address] [facility] BASIC METABOLIC PANEL 2022-06-12 04:06:00 Mary Crowley [facility] (7) [place] XR ABDOMEN / KUB 1 VIEW 2022-06-11 23:20:00 Aguilar Magana [facility] XR CHEST 1 VIEW PORTABLE 2022-06-11 10:02:00 Mary Crowley [facility] / BEDSIDE Center CBC W/PLT COUNT & AUTO 2022-06-11 05:29:[address] [facility] (CELLAVISION MANUAL 2022-06-11 05:29:[address] Kol[address] [facility]) [place] BASIC METABOLIC PANEL 2022-06-11 05:29:00 [facility] (7) [facility] MAGNESIUM 2022-06-11 05:29:00 [facility] Center PHOSPHORUS 2022-06-11 05:29:00 [facility] CBC W/PLT COUNT & AUTO 2022-06-11 05:29:00 Kolby Cabrera [facility] Center CALCIUM, IONIZED 2022-06-11 05:29:00 Nal, [facility] PREALBUMIN 2022-06-10 20:57:00 [facility] W/[facility]T [facility] & AUTO 2022-06-10 17:48:00 [facility] (CELLAVISION MANUAL 2022-06-10 17:48:00 [facility]) [place] CALCIUM, IONIZED 2022-06-10 17:48:00 [facility] CBC W/PLT COUNT & AUTO 2022-06-10 17:48:00 [facility] HEPATIC FUNCTION PANEL 2022-06-10 17:48:[address] [facility] [address] ABDOMEN/PELVIS WITH 2022-06-10 14:45:00 Kolby Cabrera [facility] IV CONTRAST Center XR ABDOMEN / KUB 1 VIEW 2022-06-10 08:08:00 Kolby Cabrera [facility] BASIC METABOLIC PANEL 2022-06-10 05:58:00 [facility] (7) [facility] MAGNESIUM 2022-06-10 05:58:00 [facility] PHOSPHORUS 2022-06-10 05:58:00 [facility] TRIGLYCERIDES 2022-06-10 05:58:00 [facility] CBC W/PLT COUNT & AUTO 2022-06-09 05:42:00 Kolby Cabrera [facility] DIFFERENTIAL Center (CELLAVISION MANUAL 2022-06-09 05:42:00 Kolby Cabrera [facility] DIFF) Center CBC W/PLT COUNT & AUTO 2022-06-09 05:42:00 Kolby Cabrera [facility] DIFFERENTIAL Center BASIC METABOLIC PANEL 2022-06-09 05:42:00 [facility] (7) [facility] MAGNESIUM 2022-06-09 05:42:00 [facility]US 2022-06-09 05:42[facility]00 [facility] [place] BASIC METABOLIC PANEL 2022-06-08 03:29:00 [facility] (7) [facility] MAGNESIUM 2022-06-08 03:29:00 [facility] PHOSPHORUS 2022-06-08 03:29:00 [facility] ANESTHESIA PERIPHERAL 2022-06-07 19:08:35 Wendi aSn [facility] BLOCK [place] TISSUE EXAM 2022-06-07 15:36:00 [facility] LAPAROTOMY, EXPLORATORY 2022-06-07 14:30:00 [facility] ABORH, MANUAL 2022-06-07 11:14:00 Arianne Ortiz [facility] SARS-COV2/RT-PCR ([facility] & 2022-06-07 10:21:00 America Rodríguez [facility] REF LABS) [facility]PELVIS WITH 2022-06-07 09:31:00 Kolby Cabrera [facility] IV CONTRAST Center CBC W/PLT COUNT & AUTO 2022-06-07 05:16:00 Arabella Medina [facility] DIFFERENTIAL Center BASIC METABOLIC PANEL 2022-06-07 05:16:00 Arabella Medina [facility] (7) Center PROTHROMBIN TIME/INR 2022-06-07 05:16:00 Arabella Medina [facility] LIPID PANEL 2022-06-07 05:16:00 Arabella Medina [facility] MAGNESIUM 2022-06-07 05:16:00 Arabella Medina [facility] PHOSPHORUS 2022-06-07 05:16:00 Arabella Medina [facility] CBC W/PLT COUNT & AUTO 2022-06-07 05:16:00 Arabella Medina [facility] DIFFERENTIAL Center TYPE AND SCREEN, 2022-06-07 05:15:00 Arabella Medina [facility] AUTOMATED Center Plan of Care Planned Activity Planned Date Details Comments Source Future Scheduled 2025-06-07 Lipid panel (procedure) [facility] Test 00:00:00 [code = 99438147] Medical Ce nter Future Scheduled 2022-07-31 HEPATITIS B VACCINES (1 [facility] Test 09:03:47 of 3 - 3-dose series) Hospit al [code = HEPATITIS B VACCINES (1 of 3 - 3-dose series)] Future Scheduled 2022-07-31 COVID-19 VACCINE (#1) [facility] 09:03:47 [code = COVID-19 Hospital VACCINE (#1)] Future Scheduled 2022-07-31 Screening for malignant [facility] Test 09:03:47 neoplasm of cervix Hospital (procedure) [code = 571538677] Future Scheduled 2022-07-31 BREAST CANCER SCREENING [facility] Test 09:03:47 [code = BREAST CANCER Hospit al SCREENING] Future Scheduled 2022-07-31 INFLUENZA VACCINE [code [facility] Test 09:03:47 = INFLUENZA VACCINE] Hospita l Future Scheduled 2022-07-26 INFLUENZA VACCINE (#1) [facility] Test 00:00:00 [code = INFLUENZA Medical Ce nter VACCINE (#1)] Future Scheduled 2022-06-26 CT ABDOMEN PELVIS W 1 Occurrences [facility] Test 13:47:04 CONTRAST [code = starting of Medicine 18914-2] 06/26/2022 until 06/26/2023 Future Scheduled 2022-06-26 COVID-19 Vaccine (#1) [employer] Test 13:44:45 [code = COVID-19 of Medicine Vaccine (#1)] Future Scheduled 2022-06-26 TETANUS SHOT (ADULT) [facility] Test 13:44:45 [code = TETANUS SHOT of Medi cine (ADULT)] Future Scheduled 2022-06-26 Human immunodeficiency [facility] Test 13:44:45 virus screening of Medicine (procedure) [code = 314907411] Future Scheduled 2022-06-26 Screening for malignant [facility] Test 13:44:45 neoplasm of cervix of Medici ne (procedure) [code = 900852401] Future Scheduled 2022-06-26 Screening for malignant [facility] Test 13:44:45 neoplasm of breast of Medici ne (procedure) [code = 795383080] Future Scheduled 2022-06-26 FLU VACCINE > 6 MONTHS B [facility] Test 13:44:45 [code = FLU VACCINE > 6 of M edicine MONTHS] Future Scheduled 2021-11-[address] [facility] Test 00:00:00 (12+) [code = Medical Center DEPRESSION SCREENING (12+)] Future Scheduled 2002 Screening for malignant [facility] Test 00:00:00 neoplasm of cervix Medical C enter (procedure) [code = 585251918] Future Scheduled 2000 DTAP/TDAP/TD VACCINES [facility] Test 00:00:00 (1 - Tdap) [code = Medical C enter DTAP/TDAP/TD VACCINES (1 - Tdap)] Future Scheduled 1999 HEPATITIS C SCREENING [facility] Test 00:00:00 [code = HEPATITIS C Medical Center SCREENING] Future Scheduled [address] [facility] Test 00:00:00 0-64 YRS (1 - PCV) Medical C enter [code = PNEUMOCOCCAL VACCINE 0-64 YRS (1 - PCV)] Future Scheduled 1981 COVID-19 VACCINE (#1) [facility] Test 00:00:00 [code = COVID-[address] VACCINE (#1)] Encounters Start End Encounter Admission Attending Care Care Encounter Source Date/Time Date/Time Type Type Clinicians Facility Department ID 2022-08-06 2022-08-06 Outpatient Igor COTTO [facility] [id number] Univers 09:00:00 09:00:00 BEN [id number] [facility] 2022-08-06 2022-08-06 Outpatient R YADIEL [facility] [id number] Univers 09:00:00 09:00:00 [facility] 2022-08-02 2022-08-02 Orders Doctor PARRA [id number] Univers 00:00:00 00:00:00 Only Unassigned, [place] 350.1.13.10 [facility] 4.2.7.2.686 Constantine as [phone] [address] 2022-07-29 2022-07-29 [facility] 1.2.840.114 [id number] Univers 00:00:00 00:00:00 [facility] 350.1.13.10 it y of [place] 4.2.7.2.686 Constantine as DEEPTHI?BLEA [phone] [address] MEDICAL OFFICE [facility] 2022-07-27 2022-07-27 Telephone [facility] [id number] [id number] Univers 00:00:00 00:00:00 [facility] 350.1.13.10 it y of [place] 4.2.7.2.686 Constantine as DEEPTHI?BLEA [id number] [address] MEDICAL OFFICE [facility] 2022-07-14 2022-07-25 [facility] [id number] [facility] 10:07:00 16:50:00 ETHAN 2022-07-14 2022-07-25 [facility] [id number] [facility] 10:07:00 16:50:00 Encounter Suma Burleson [facility] [place] Morgan 2022-07-25 2022-07-25 [id number] 00:00[facility]00 00:00:00 [facility] 2022-07-24 2022-07-24 Refill Doctor [facility] 1.2.840.114 [id number] Univers 00:00:00 00:00:00 Unassigned, HEALTH 350.1.13.10 it[place] 4.2.7.2.686 Constantine as DEEPTHI?BLEA [phone] [facility] [address] MEDICAL OFFICE [facility] 2022-07-18 2022-07-18 Refill Doctor [facility] 1.2.840.114 [id number] Univers 00:00:00 00:00:00 Unassigned, HEALTH 350.1.13.10 ity [place] 4.2.7.2.686 Constantine as DEEPTHI?BLEA [phone] [address] MEDICAL OFFICE [facility] 2022-07-16 2022-07-16 Orders Doctor [facility] 1.2.840.114 [id number] Univers 00:00:00 00:00:00 Only Unassigned, CARRO[place] 350.1.13.10 ity [place] [facility] 4.2.7.2.686 Constantine as [phone] [address] 2022-07-14 2022-07-14 Travel [facility] [id number] [facility] 00:[facility]00 00:00:00 [facility] 2022-07-10 2022-07-[address] [facility] [id number] 00:00:00 00:00:00 Only Liz [facility] 2022-07-05 2022-07-05 Outpatient R NOEMÍ [facility] [id number] Univers 14:45:00 15:10:56 MARSHALL ity of [facility] 2022-07-05 2022-07-05 Nurse Nurse, [facility] 1.2.840.114 [id number] Univers 14:45:00 15:10:56 Visit Unknown, Attending HEALTH 350.1.13.10 [place] [facility] 4.2.7.2.686 [place] DEEPTHI?BLEA [phone] [facility] OFFICE [facility] 2022-07-05 2022-07-05 Outpatient R [facility] [id number] Univers 14:45:00 14:45:00 [id number] ity [facility] 2022-07-05 2022-07-05 Urgent Sita Magana [facility] 1.2.840.114 [id number] Univers 14:20:00 14:40:00 Care Unknown, Attending HEALTH 350.1.13.10 ity of [place] 4.2.7.2.686 Constantine as DEEPTHI?BLEA [phone] Tn ileanadavid [facility] [address] MEDICAL OFFICE BUILDING 2022-07-05 2022-07-05 Outpatient R AYLEEN [facility] [id number] Univers 14:20:00 14:20:00 SITA [facility] 2022-07-02 2022-07-02 Office Yadiel [facility] 1.2.840.114 [id number] Univers 08:45:00 09:04:13 Visit [facility] 350.1.13.10 it y of [place] 4.2.7.2.686 Constantine as DEEPTHI?BLEA [phone] Tn ileanadavid [address] MEDICAL OFFICE BUILDING 2022-06-26 2022-06-26 Office PATTI GÓMEZ 1.2.840.114 [id number] [facility] 12:39:57 12:39:57 Visit JIM AMBULATOR 350.1.13.21 College Y 0.2.7.2.686 of [id number] [facility] connie 815 e 2022-06-26 2022-06-[address] [facility] [id number] 00:00:00 00:00:00 Only [facility] 2022-06-19 2022-06-[address] [facility] [id number] 00:00:00 00:00:[address] [facility] 2022-06-07 2022-06-18 Inpatient ER LESTER, SLE Surgery [id number] [facility] 02:15:00 16:19:00 [facility] 2022-06-07 2022-06-[address] [facility] [id number] [facility] 02:15:00 16:19:00 Encounter Ashwini Hemphill [facility] Arabella Medina 2022-06-07 2022-06-07 Surgery Geraldine, [facility] [id number] 12:03:00 15:14:00 [facility] 2022-06-07 2022-06-[address] [facility] [id number] [facility]3] 14:45:00 14:45:00 Event [facility] [place] Results Test Description Test Time Test Comments Results Result Comments Source COMPREHENSIVE METABOLIC PANEL 2022-07-23 05:19:39 Test Item Value Reference Range Interpretation Comme nts TOTAL PROTEIN (BEAKER) 6.1 gm/dL 6.0-8.3 (test code = 770) ALBUMIN (BEAKER) (test 2.9 g/dL 3.5-5.0 L code = 1145) ALKALINE PHOSPHATASE 136 U/L 40-150 (BEAKER) (test code = 346) BILIRUBIN TOTAL (BEAKER) 0.3 mg/dL 0.2-1.2 (test code = 377) SODIUM (BEAKER) (test 137 meq/L 136-145 code = 381) POTASSIUM (BEAKER) (test 4.0 meq/L 3.5-5.1 code = 379) CHLORIDE (BEAKER) (test 105 meq/L 98-107 code = 382) CO2 (BEAKER) (test code 22 meq/L 22-29 = 355) BLOOD UREA NITROGEN 10 mg/dL 7-21 (BEAKER) (test code = 354) CREATININE (BEAKER) 0.52 mg/dL 0.57-1.25 L (test code = 358) GLUCOSE RANDOM (BEAKER) 84 mg/dL 70-105 (test code = 652) CALCIUM (BEAKER) (test 8.2 mg/dL 8.4-10.2 L code = 697) AST (SGOT) (BEAKER) 27 U/L 5-34 (test code = 353) ALT (SGPT) (BEAKER) 12 U/L 6-55 (test code = 347) EGFR (BEAKER) (test code 120 mL/min/1.73 Interpretation of eGFR values = 1092) sq m Stage Descripti on Result G1 Normal or high >=90 G2 Mildly decreased 60-89 G3a Mildly to moderately 45-5 9 G3b Moderately to severely 30- 44 G4 Severly decreased 15-29 G5 Kidney failure <15Repo rted eGFR is based on the CK D-EPI 2020 equation that d oes not use a race coefficien tEstimated GFR is not as accurate as Creatinine Clearance in pr edicting glomerular filt ration rate. Estimated GFR i s not applicable for dialysis marcelino damon Coal Screener ID - PIAYA LCBC W/PLT COUNT & AUTO [id number] 04:28:46 Test Item Value Reference Range Interpretation Comments WHITE BLOOD CELL COUNT (BEAKER) 4.3 K/ L 3.5-10.5 (test code = 775) RED BLOOD CELL COUNT (BEAKER) 3.38 M/ L 3.93-5.22 L (test code = 761) HEMOGLOBIN (BEAKER) (test code = 9.4 GM/DL 11.2-15.7 L 410) HEMATOCRIT (BEAKER) (test code = 31.7 % 34.1-44.9 L 411) MEAN CORPUSCULAR VOLUME (BEAKER) 93.8 fL 79.4-94.8 (test code = 753) MEAN CORPUSCULAR HEMOGLOBIN 27.8 pg 25.6-32.2 (BEAKER) (test code = 751) MEAN CORPUSCULAR HEMOGLOBIN CONC 29.7 GM/DL 32.2-35.5 L (BEAKER) (test code = 752) RED CELL DISTRIBUTION WIDTH 19.8 % 11.7-14.4 H (BEAKER) (test code = 412) PLATELET COUNT (BEAKER) (test 256 K/CU MM 150-450 code = 756) MEAN PLATELET VOLUME (BEAKER) 8.8 fL 9.4-12.3 L (test code = 754) NUCLEATED RED BLOOD CELLS 0 /100 WBC 0-0 (BEAKER) (test code = 413) NEUTROPHILS RELATIVE PERCENT 26 % (BEAKER) (test code = 429) LYMPHOCYTES RELATIVE PERCENT 60 % (BEAKER) (test code = 430) MONOCYTES RELATIVE PERCENT 10 % (BEAKER) (test code = 431) EOSINOPHILS RELATIVE PERCENT 4 % (BEAKER) (test code = 432) BASOPHILS RELATIVE PERCENT 1 % (BEAKER) (test code = 437) NEUTROPHILS ABSOLUTE COUNT 1.10 K/ L 1.56-6.13 L (BEAKER) (test code = 670) LYMPHOCYTES ABSOLUTE COUNT 2.57 K/ L 1.18-3.74 (BEAKER) (test code = 414) MONOCYTES ABSOLUTE COUNT (BEAKER) 0.42 K/ L 0.24-0.36 H (test code = 415) EOSINOPHILS ABSOLUTE COUNT 0.19 K/ L 0.04-0.36 (BEAKER) (test code = 416) BASOPHILS ABSOLUTE COUNT (BEAKER) 0.02 K/ L 0.01-0.08 (test code = 417) IMMATURE GRANULOCYTES-RELATIVE 0 % 0-1 PERCENT (BEAKER) (test code = 2801) COMPREHENSIVE METABOLIC [id number] 03:17:42 Test Item Value Reference Range Interpretation Comments TOTAL PROTEIN 6.5 gm/dL 6.0-8.3 (BEAKER) (test code = 770) ALBUMIN (BEAKER) 3.2 g/dL 3.5-5.0 L (test code = 1145) ALKALINE 134 U/L 40-150 PHOSPHATASE (BEAKER) (test code = 346) BILIRUBIN TOTAL 0.4 mg/dL 0.2-1.2 (BEAKER) (test code = 377) SODIUM (BEAKER) 137 meq/L 136-145 (test code = 381) POTASSIUM (BEAKER) 3.9 meq/L 3.5-5.1 (test code = 379) CHLORIDE (BEAKER) 102 meq/L 98-107 (test code = 382) CO2 (BEAKER) (test 29 meq/L 22-29 code = 355) BLOOD UREA 11 mg/dL 7-21 NITROGEN (BEAKER) (test code = 354) CREATININE 0.63 mg/dL 0.57-1.25 (BEAKER) (test code = 358) GLUCOSE RANDOM 87 mg/dL 70-105 (BEAKER) (test code = 652) CALCIUM (BEAKER) 8.6 mg/dL 8.4-10.2 (test code = 697) AST (SGOT) 37 U/L 5-34 H (BEAKER) (test code = 353) ALT (SGPT) 15 U/L 6-55 (BEAKER) (test code = 347) EGFR (BEAKER) 114 Interpretatio n of eGFR (test code = 1092) mL/min/1.[address] age Description sq m Result G1 Mary l or high >=90 G2 Mildly decreased 60-89 G3a Mildl y to moderately 45-5 9 G3b Moderately to s everely 30-44 G4 Severl y decreased 15-29 G5 Kidney failure <15Reported eGF R is based on the CKD-EPI 2020 equation that d oes not use a race coefficientEsti mated GFR is not as accur ate as Creatinine Tenisha molly in predicting glom erular filtration rate . Estimated GFR is not appl icable for dialysis patien ts Coal Screener ID - [id number] 03:17:42 Test Item Value Reference Range Interpretation Comments MAGNESIUM (BEAKER) (test code = 1.9 mg/dL 1.6-2.6 627) Coal Screener ID - BSFL, UGI, WITH SMALL [id number] 18:50:00Reason for exam:- >bowel obstruction [facility] 1980 Sex: FFINAL REPORT Small Bowel Series Clinical History: Obstruction Technique/Findings: Frontalscout radiograph obtained followed by sequential abdominal series after the administration of enteric contrast. The patient ingested Gastrografin with sequential abdominal plain films. The licensed physical therapist assistant view of the abdomen demonstrates a nonspecific gas pattern with several loops of mildly distended small bowel. There are multiple surgical clips that overlie the bilateral abdomen and surgical suture is present at the gastroesophageal junction and within the right upper quadrant. Supine technique limits sensi tivity for detection of free air. After administration of enteric contrast, small bowel diameter is up to 3.5 cm and contrast reaches the colon in the right upper quadrant after 90 minutes. Impression:Mildly distended small bowel without evidence of small bowel obstruction. Signed: Arianna Kwok Verified Date/Time: 07/20/2022 18:50:54 Electronically signed by: ARIANNA KWOK MD on 206:50 PMRAD, ABDOMEN/KUB, 1 VIEW [id number] 12:54:00Reason for exam:->abdominal painShould this be performed at the bedside?->Yes [facility] 1980 Sex: FFINAL REPORT RAD, ABDOMEN/KUB, 1 VIEW AP CLINICAL INDICATION: abdominal pain COMPARISON: 06/11/2022 TECHNIQUE: Frontal radiograph(s) of the abdomen. FINDINGS: The bowel gas pattern demonstrates a dilated sigmoid colon measuring up to 9.1 cm in diameter. Moderate colonic stool burden. Evaluation for free air is limited by portable supine technique. Within these limitations, no free air is identified. IMPRESSION: 1.Dilated air-filled large bowel loops, which may represent ileus.2.Moderate colonic stool burden. Signed: Kings Maganaort Verified Date/Time: 07/20/2022 12:54:33 Reading Location: [facility] Radiology Reading Room Electronically signed by: KINGS MAGANA MD on 06/26 12:54 PMCOMPREHENSIVE METABOLIC [id number] 03:16:50 Test Item Value Reference Range Interpretation Comments TOTAL PROTEIN 6.0 gm/dL 6.0-8.3 (BEAKER) (test code = 770) ALBUMIN (BEAKER) 3.0 g/dL 3.5-5.0 L (test code = 1145) ALKALINE 137 U/L 40-150 PHOSPHATASE (BEAKER) (test code = 346) BILIRUBIN TOTAL 0.2 mg/dL 0.2-1.2 (BEAKER) (test code = 377) SODIUM (BEAKER) 138 meq/L 136-145 (test code = 381) POTASSIUM (BEAKER) 4.4 meq/L 3.5-5.1 (test code = 379) CHLORIDE (BEAKER) 100 meq/L 98-107 (test code = 382) CO2 (BEAKER) (test 31 meq/L 22-29 H code = 355) BLOOD UREA 11 mg/dL 7-21 NITROGEN (BEAKER) (test code = 354) CREATININE 0.67 mg/dL 0.57-1.25 (BEAKER) (test code = 358) GLUCOSE RANDOM 86 mg/dL 70-105 (BEAKER) (test code = 652) CALCIUM (BEAKER) 8.5 mg/dL 8.4-10.2 (test code = 697) AST (SGOT) 29 U/L 5-34 (BEAKER) (test code = 353) ALT (SGPT) 14 U/L 6-55 (BEAKER) (test code = 347) EGFR (BEAKER) 113 Interpretatio n of eGFR (test code = 1092) mL/min/1.[address] age Description sq m Result G1 Mary l or high >=90 G2 Mildly decreased 60-89 G3a Mildl y to moderately 45-5 9 G3b Moderately to s everely 30-44 G4 Severl y decreased 15-29 G5 Kidney failure <15Reported eGF R is based on the CKD-EPI 2020 equation that d oes not use a race coefficientEsti mated GFR is not as accur ate as Creatinine Tenisha barnes in predicting glom erular filtration rate . Estimated GFR is not appl icable for dialysis patien ts Coal Screener ID - MILO [id number] 03:14:37 Test Item Value Reference Range Interpretation Comments MAGNESIUM (BEAKER) (test code = 1.8 mg/dL 1.6-2.6 627) Coal Screener ID - MILO MBODY FLUID CULTURE + GRAM [id number] 10:25:20 Test Item Value Reference Interpretation Comments Range CULTURE (BEAKER) (test ESCHERICHIA COLI A F rom Aerobic And code = 1095) Anaerobic Bottl es Escherichia col i Amikacin (test code = S 1) Ampicillin + Sulbactam S (test code = 6) Aztreonam (test code = S 32) Cefepime (test code = S 51) Cefoxitin (test code = S 68) Ceftazidime (test code S = 27) Ceftriaxone (test code S = 52) Ertapenem (test code = S 38) Gentamicin (test code S = 18) Levofloxacin (test S code = 22) Meropenem (test code = S 34) Nitrofurantoin (test S code = 23) Piperacillin + S Tazobactam (test code = 29) Tetracycline (test S code = 2) Tobramycin (test code S = 25) Trimethoprim + R Sulfamethoxazole (test code = 47) CULTURE (BEAKER) (test KLEBSIELLA A From Aerobic And code = 1095) PNEUMONIAE Anaerobic Bottl es Klebsiella pneumoniaeof a second type Amikacin (test code = S 1) Ampicillin + Sulbactam S (test code = 6) Aztreonam (test code = S 32) Cefepime (test code = S 51) Cefoxitin (test code = S 68) Ceftazidime (test code S = 27) Ceftriaxone (test code S = 52) Ertapenem (test code = S 38) Gentamicin (test code S = 18) Levofloxacin (test S code = 22) Meropenem (test code = S 34) Piperacillin + S Tazobactam (test code = 29) Tetracycline (test S code = 2) Tobramycin (test code S = 25) Trimethoprim + S Sulfamethoxazole (test code = 47) GRAM STAIN RESULT From aerobic and (BEAKER) (test code = anaerobic 1123) bottles: gram negative rods COMPREHENSIVE METABOLIC [id number] 06:43:55 Test Item Value Reference Range Interpretation Comments TOTAL PROTEIN 5.3 gm/dL 6.0-8.3 L (BEAKER) (test code = 770) ALBUMIN (BEAKER) 2.2 g/dL 3.5-5.0 L (test code = 1145) ALKALINE 149 U/L 40-150 PHOSPHATASE (BEAKER) (test code = 346) BILIRUBIN TOTAL 0.3 mg/dL 0.2-1.2 (BEAKER) (test code = 377) SODIUM (BEAKER) 136 meq/L 136-145 (test code = 381) POTASSIUM (BEAKER) 3.9 meq/L 3.5-5.1 (test code = 379) CHLORIDE (BEAKER) 102 meq/L 98-107 (test code = 382) CO2 (BEAKER) (test 30 meq/L 22-29 H code = 355) BLOOD UREA 10 mg/dL 7-21 NITROGEN (BEAKER) (test code = 354) CREATININE 0.58 mg/dL 0.57-1.25 (BEAKER) (test code = 358) GLUCOSE RANDOM 83 mg/dL 70-105 (BEAKER) (test code = 652) CALCIUM (BEAKER) 7.7 mg/dL 8.4-10.2 L (test code = 697) AST (SGOT) 30 U/L 5-34 (BEAKER) (test code = 353) ALT (SGPT) 14 U/L 6-55 (BEAKER) (test code = 347) EGFR (BEAKER) 117 Interpretatio n of eGFR (test code = 1092) mL/min/1.[address] age Description sq m Result G1 Mary l or high >=90 G2 Mildly decreased 60-89 G3a Mild ly to moderately 45-5 9 G3b Moderately to s everely 30-44 G4 Severl y decreased 15-29 G5 Kidney failure <15Reported eGF R is based on the CKD-EPI 2020 equation that d oes not use a race coefficientEsti mated GFR is not as accur ate as Creatinine Tenisha molly in predicting glom erular filtration rate . Estimated GFR is not appl icable for dialysis patien ts Coal Screener ID - SARAH [id number] 06:40:27 Test Item Value Reference Range Interpretation Comments MAGNESIUM (BEAKER) (test code = 1.5 mg/dL 1.6-2.6 L 627) Coal Screener ID Mike SMITH LCBC W/PLT COUNT & AUTO [id number] 04:47:19 Test Item Value Reference Range Interpretation Comments WHITE BLOOD CELL COUNT (BEAKER) 4.4 K/ L 3.5-10.5 (test code = 775) RED BLOOD CELL COUNT (BEAKER) 3.12 M/ L 3.93-5.22 L (test code = 761) HEMOGLOBIN (BEAKER) (test code = 8.7 GM/DL 11.2-15.7 L 410) HEMATOCRIT (BEAKER) (test code = 29.2 % 34.1-44.9 L 411) MEAN CORPUSCULAR VOLUME (BEAKER) 93.6 fL 79.4-94.8 (test code = 753) MEAN CORPUSCULAR HEMOGLOBIN 27.9 pg 25.6-32.2 (BEAKER) (test code = 751) MEAN CORPUSCULAR HEMOGLOBIN CONC 29.8 GM/DL 32.2-35.5 L (BEAKER) (test code = 752) RED CELL DISTRIBUTION WIDTH 21.1 % 11.7-14.4 H (BEAKER) (test code = 412) PLATELET COUNT (BEAKER) (test 261 K/CU MM 150-450 code = 756) MEAN PLATELET VOLUME (BEAKER) 9.3 fL 9.4-12.3 L (test code = 754) NUCLEATED RED BLOOD CELLS 0 /100 WBC 0-0 (BEAKER) (test code = 413) NEUTROPHILS RELATIVE PERCENT 37 % (BEAKER) (test code = 429) LYMPHOCYTES RELATIVE PERCENT 49 % (BEAKER) (test code = 430) MONOCYTES RELATIVE PERCENT 10 % (BEAKER) (test code = 431) EOSINOPHILS RELATIVE PERCENT 4 % (BEAKER) (test code = 432) BASOPHILS RELATIVE PERCENT 0 % (BEAKER) (test code = 437) NEUTROPHILS ABSOLUTE COUNT 1.63 K/ L 1.56-6.13 (BEAKER) (test code = 670) LYMPHOCYTES ABSOLUTE COUNT 2.14 K/ L 1.18-3.74 (BEAKER) (test code = 414) MONOCYTES ABSOLUTE COUNT (BEAKER) 0.43 K/ L 0.24-0.36 H (test code = 415) EOSINOPHILS ABSOLUTE COUNT 0.18 K/ L 0.04-0.36 (BEAKER) (test code = 416) BASOPHILS ABSOLUTE COUNT (BEAKER) 0.01 K/ L 0.01-0.08 (test code = 417) IMMATURE GRANULOCYTES-RELATIVE 0 % 0-1 PERCENT (BEAKER) (test code = 2801) BASIC METABOLIC [id number] 04:59:12 Test Item Value Reference Range Interpretation Comments SODIUM (BEAKER) 138 meq/L 136-145 (test code = 381) POTASSIUM 3.9 meq/L 3.5-5.1 (BEAKER) (test code = 379) CHLORIDE (BEAKER) 107 meq/L 98-107 (test code = 382) CO2 (BEAKER) 26 meq/L 22-29 (test code = 355) BLOOD UREA 8 mg/dL 7-21 NITROGEN (BEAKER) (test code = 354) CREATININE 0.53 mg/dL 0.57-1.25 L (BEAKER) (test code = 358) GLUCOSE RANDOM 88 mg/dL 70-105 (BEAKER) (test code = 652) CALCIUM (BEAKER) 7.7 mg/dL 8.4-10.2 L (test code = 697) EGFR (BEAKER) 119 Interpretatio n of eGFR (test code = mL/min/1.73 values Stage De scription 1092) sq m Result G1 Mary l or high >=90 G2 Mildly decreased 60-89 G3a Mildl y to moderately 45-5 9 G3b Moderately to s everely 30-44 G4 Severl y decreased 15-29 G5 Kidney failure <15Reported eGF R is based on the CKD-EPI 2020 equation that d oes not use a race coefficientEsti mated GFR is not as accur ate as Creatinine Tenisha molly in predicting glom erular filtration rate . Estimated GFR is not appl icable for dialysis patien ts Coal Screener ID - PIAYA LCBC W/PLT COUNT & AUTO [id number] 03:46:28 Test Item Value Reference Range Interpretation Comments WHITE BLOOD CELL COUNT (BEAKER) 4.2 K/ L 3.5-10.5 (test code = 775) RED BLOOD CELL COUNT (BEAKER) 3.02 M/ L 3.93-5.22 L (test code = 761) HEMOGLOBIN (BEAKER) (test code = 8.3 GM/DL 11.2-15.7 L 410) HEMATOCRIT (BEAKER) (test code = 27.7 % 34.1-44.9 L 411) MEAN CORPUSCULAR VOLUME (BEAKER) 91.7 fL 79.4-94.8 (test code = 753) MEAN CORPUSCULAR HEMOGLOBIN 27.5 pg 25.6-32.2 (BEAKER) (test code = 751) MEAN CORPUSCULAR HEMOGLOBIN CONC 30.0 GM/DL 32.2-35.5 L (BEAKER) (test code = 752) RED CELL DISTRIBUTION WIDTH 21.1 % 11.7-14.4 H (BEAKER) (test code = 412) PLATELET COUNT (BEAKER) (test 267 K/CU MM 150-450 code = 756) MEAN PLATELET VOLUME (BEAKER) 8.8 fL 9.4-12.3 L (test code = 754) NUCLEATED RED BLOOD CELLS 0 /100 WBC 0-0 (BEAKER) (test code = 413) NEUTROPHILS RELATIVE PERCENT 37 % (BEAKER) (test code = 429) LYMPHOCYTES RELATIVE PERCENT 46 % (BEAKER) (test code = 430) MONOCYTES RELATIVE PERCENT 11 % (BEAKER) (test code = 431) EOSINOPHILS RELATIVE PERCENT 5 % (BEAKER) (test code = 432) BASOPHILS RELATIVE PERCENT 0 % (BEAKER) (test code = 437) NEUTROPHILS ABSOLUTE COUNT 1.55 K/ L 1.56-6.13 L (BEAKER) (test code = 670) LYMPHOCYTES ABSOLUTE COUNT 1.94 K/ L 1.18-3.74 (BEAKER) (test code = 414) MONOCYTES ABSOLUTE COUNT (BEAKER) 0.46 K/ L 0.24-0.36 H (test code = 415) EOSINOPHILS ABSOLUTE COUNT 0.22 K/ L 0.04-0.36 (BEAKER) (test code = 416) BASOPHILS ABSOLUTE COUNT (BEAKER) 0.01 K/ L 0.01-0.08 (test code = 417) IMMATURE GRANULOCYTES-RELATIVE 0 % 0-1 PERCENT (BEAKER) (test code = 2801) U/S, DRAINAGE, [id number] 16:03:00Reason for exam:->abscess drainage ( anterior abdominal wall) [facility] : 1980 Sex: FFINAL REPORT PROCEDURE: Ultrasound-guided evaluation and extraction of purulent material.INDICATION: Abscess drainage. COMPARISON: Outside facility CT from yesterday. SEDATION: None MEDICATIONS: None DESCRIPTION: Upon ultrasound evaluation of the midline fluid collection, purulent materialbegan extruding from a midline abdominal wound. This wound was prepped and draped in a sterile fashion, then the minimal remaining purulent fluid was expressed from the fluid collection and collected with a syringe. The purulent material was diluted in saline and placed in culture bottles. The scan after compression of the fluid collection showed an essentially collapsed midline collection. IMPRESSION: Successful expression of purulent material from a midline abdominal wound. No drain was placed since the purulent material was readily expressed through the open abdominal wound and no significant residual fluid was seen after compression. Cultures were sent to the laboratory. Signed: Roosevelt Vazquez MDReport Verified Date/Time: 07/15/2022 16:03:54 Reading Location: [address] Body Reading Room [id number] 12:06:15 Test Item Value Reference Range Interpretation Comments PROTIME (BEAKER) (test 15.2 seconds 11.9-14.2 H code = 759) INR (BEAKER) (test 1.27 See_Comment [Automat ed code = 370) message] The sy stem which generated this result transmitted reference range : <=5.90. The reference range was not used to interpret this result as normal/abnormal . PARTIAL THROMBOPLASTIN 33.3 seconds 22.5-36.0 TIME (BEAKER) (test code = 760) RECOMMENDED COUMADIN/WARFARIN INR THERAPY RANGESSTANDARD DOSE: 2.0 - 3.0 Includes: PROPHYLAXIS for venous thrombosis, systemic embolization; TREATMENT for venous thrombosis and/or pulmonary embolus.HIGH RISK: Target INR is 2.5-3.5 for patients with mechanical heart valves.CBC W/PLT COUNT & AUTO [id number] 08:42:51 Test Item Value Reference Range Interpretation Comments WHITE BLOOD CELL COUNT (BEAKER) 3.4 K/ L 3.5-10.5 L (test code = 775) RED BLOOD CELL COUNT (BEAKER) 3.17 M/ L 3.93-5.22 L (test code = 761) HEMOGLOBIN (BEAKER) (test code = 8.8 GM/DL 11.2-15.7 L 410) HEMATOCRIT (BEAKER) (test code = 28.4 % 34.1-44.9 L 411) MEAN CORPUSCULAR VOLUME (BEAKER) 89.6 fL 79.4-94.8 (test code = 753) MEAN CORPUSCULAR HEMOGLOBIN 27.8 pg 25.6-32.2 (BEAKER) (test code = 751) MEAN CORPUSCULAR HEMOGLOBIN CONC 31.0 GM/DL 32.2-35.5 L (BEAKER) (test code = 752) RED CELL DISTRIBUTION WIDTH 20.9 % 11.7-14.4 H (BEAKER) (test code = 412) PLATELET COUNT (BEAKER) (test 296 K/CU MM 150-450 code = 756) MEAN PLATELET VOLUME (BEAKER) 9.1 fL 9.4-12.3 L (test code = 754) NUCLEATED RED BLOOD CELLS 0 /100 WBC 0-0 (BEAKER) (test code = 413) NEUTROPHILS RELATIVE PERCENT 47 % (BEAKER) (test code = 429) LYMPHOCYTES RELATIVE PERCENT 41 % (BEAKER) (test code = 430) MONOCYTES RELATIVE PERCENT 10 % (BEAKER) (test code = 431) EOSINOPHILS RELATIVE PERCENT 2 % (BEAKER) (test code = 432) BASOPHILS RELATIVE PERCENT 0 % (BEAKER) (test code = 437) NEUTROPHILS ABSOLUTE COUNT 1.58 K/ L 1.56-6.13 (BEAKER) (test code = 670) LYMPHOCYTES ABSOLUTE COUNT 1.39 K/ L 1.18-3.74 (BEAKER) (test code = 414) MONOCYTES ABSOLUTE COUNT (BEAKER) 0.33 K/ L 0.24-0.36 (test code = 415) EOSINOPHILS ABSOLUTE COUNT 0.06 K/ L 0.04-0.36 (BEAKER) (test code = 416) BASOPHILS ABSOLUTE COUNT (BEAKER) 0.01 K/ L 0.01-0.08 (test code = 417) IMMATURE GRANULOCYTES-RELATIVE 0 % 0-1 PERCENT (BEAKER) (test code = 2801) BASIC METABOLIC [id number] 07:05:07 Test Item Value Reference Range Interpretation Comments SODIUM (BEAKER) 139 meq/L 136-145 (test code = 381) POTASSIUM 4.0 meq/L 3.5-5.1 (BEAKER) (test code = 379) CHLORIDE (BEAKER) 107 meq/L 98-107 (test code = 382) CO2 (BEAKER) 27 meq/L 22-29 (test code = 355) BLOOD UREA 4 mg/dL 7-21 L NITROGEN (BEAKER) (test code = 354) CREATININE 0.59 mg/dL 0.57-1.25 (BEAKER) (test code = 358) GLUCOSE RANDOM 83 mg/dL 70-105 (BEAKER) (test code = 652) CALCIUM (BEAKER) 7.6 mg/dL 8.4-10.2 L (test code = 697) EGFR (BEAKER) 116 Interpretatio n of eGFR (test code = mL/min/1.73 values Stage De scription 1092) sq m Result G1 Mary l or high >=90 G2 Mildly decreased 60-89 G3a Mildl y to moderately 45-5 9 G3b Moderately to s everely 30-44 G4 Sever ly decreased 15-29 G5 Kidney failure <15Repo rted eGFR is based on the CKD-EPI 2020 equation t hat does not use a race coefficientEsti mated GFR is not as accur ate as Creatinine Tenisha barnes in predicting glom erular filtration rate . Estimated GFR is not appl icable for dialysis patien ts Coal Screener ID - PIAYA [id number] 06:16:29 Test Item Value Reference Range Interpretation Comments MAGNESIUM (BEAKER) (test code = 1.8 mg/dL 1.6-2.6 627) Coal Screener ID - PIAYA LCOMPREHENSIVE METABOLIC [id number] 12:17:02 Test Item Value Reference Range Interpretation Comments TOTAL PROTEIN 5.2 gm/dL 6.0-8.3 L Specimen sligh tly (BEAKER) (test hemolyzed code = 770) ALBUMIN (BEAKER) 1.9 g/dL 3.5-5.0 L Specimen sl ightly (test code = 1145) hemolyzed ALKALINE 185 U/L 40-150 H PHOSPHATASE (BEAKER) (test code = 346) BILIRUBIN TOTAL 0.7 mg/dL 0.2-1.2 Specimen sli ghtly (BEAKER) (test hemolyzed code = 377) SODIUM (BEAKER) 138 meq/L 136-145 (test code = 381) POTASSIUM (BEAKER) 3.9 meq/L 3.5-5.1 Specimen slightly (test code = 379) hemolyzed CHLORIDE (BEAKER) 108 meq/L 98-107 H (test code = 382) CO2 (BEAKER) (test 25 meq/L 22-29 code = 355) BLOOD UREA 6 mg/dL 7-21 L NITROGEN (BEAKER) (test code = 354) CREATININE 0.47 mg/dL 0.57-1.25 L Specimen slight ly (BEAKER) (test hemolyzed code = 358) GLUCOSE RANDOM 84 mg/dL 70-105 (BEAKER) (test code = 652) CALCIUM (BEAKER) 7.3 mg/dL 8.4-10.2 L (test code = 697) AST (SGOT) 121 U/L 5-34 H Specimen slight ly (BEAKER) (test hemolyzed code = 353) ALT (SGPT) 38 U/L 6-55 Specimen slight ly (BEAKER) (test hemolyzed code = 347) EGFR (BEAKER) 123 Interpretatio n of eGFR (test code = 1092) mL/min/1.[address] age Description sq m Result G1 Mary l or high >=90 G2 Mildly decreased 60-89 G3a Mildl y to moderately 45-5 9 G3b Moderately to s everely 30-44 G4 Severl y decreased 15-29 G5 Kidney failure <15Reported eGF R is based on the CKD-EPI 1 equation that d oes not use a race coefficientEsti mated GFR is not as accur ate as Creatinine Tenisha barnes in predicting glom erular filtration rate . Estimated GFR is not appl icable for dialysis patien ts Coal Screener ID - [id number] 12:16:42 Test Item Value Reference Range Interpretation Comments MAGNESIUM (BEAKER) 1.5 mg/dL 1.6-2.6 L Specimen slightly (test code = 627) hemolyzed Coal Screener ID - JSCBC W/PLT COUNT & AUTO [id number] 12:01:15 Test Item Value Reference Range Interpretation Comments WHITE BLOOD CELL COUNT (BEAKER) 4.4 K/ L 3.5-10.5 (test code = 775) RED BLOOD CELL COUNT (BEAKER) 3.15 M/ L 3.93-5.22 L (test code = 761) HEMOGLOBIN (BEAKER) (test code = 8.7 GM/DL 11.2-15.7 L 410) HEMATOCRIT (BEAKER) (test code = 28.6 % 34.1-44.9 L 411) MEAN CORPUSCULAR VOLUME (BEAKER) 90.8 fL 79.4-94.8 (test code = 753) MEAN CORPUSCULAR HEMOGLOBIN 27.6 pg 25.6-32.2 (BEAKER) (test code = 751) MEAN CORPUSCULAR HEMOGLOBIN CONC 30.4 GM/DL 32.2-35.5 L (BEAKER) (test code = 752) RED CELL DISTRIBUTION WIDTH 20.5 % 11.7-14.4 H (BEAKER) (test code = 412) PLATELET COUNT (BEAKER) (test 269 K/CU MM 150-450 code = 756) MEAN PLATELET VOLUME (BEAKER) 8.9 fL 9.4-12.3 L (test code = 754) NUCLEATED RED BLOOD CELLS 0 /100 WBC 0-0 (BEAKER) (test code = 413) NEUTROPHILS RELATIVE PERCENT 65 % (BEAKER) (test code = 429) LYMPHOCYTES RELATIVE PERCENT 22 % (BEAKER) (test code = 430) MONOCYTES RELATIVE PERCENT 9 % (BEAKER) (test code = 431) EOSINOPHILS RELATIVE PERCENT 3 % (BEAKER) (test code = 432) BASOPHILS RELATIVE PERCENT 0 % (BEAKER) (test code = 437) NEUTROPHILS ABSOLUTE COUNT 2.86 K/ L 1.56-6.13 (BEAKER) (test code = 670) LYMPHOCYTES ABSOLUTE COUNT 0.97 K/ L 1.18-3.74 L (BEAKER) (test code = 414) MONOCYTES ABSOLUTE COUNT (BEAKER) 0.40 K/ L 0.24-0.36 H (test code = 415) EOSINOPHILS ABSOLUTE COUNT 0.11 K/ L 0.04-0.36 (BEAKER) (test code = 416) BASOPHILS ABSOLUTE COUNT (BEAKER) 0.01 K/ L 0.01-0.08 (test code = 417) IMMATURE GRANULOCYTES-RELATIVE 1 % 0-1 PERCENT (BEAKER) (test code = 2801) BLOOD [id number] 03:00:12 Test Item Value Reference Range Interpretation Comments CULTURE (BEAKER) (test No growth in 5 days code = 1095) BLOOD [id number] 03:00:12 Test Item Value Reference Range Interpretation Comments CULTURE (BEAKER) (test No growth in 5 days code = 1095) POC-Glucose [id number] 12:09:44 Test Item Value Reference Range Interpretation Comments POC-Glucose Meter (test 103 mg/dL 70-110 : TE STED AT [facility] code = 1538) [address] [facility], 770 30: Coal Screener/Techni placido ID = [id number] for IGORMARY CHILDSINA Lab Interpretation (test Normal code = 93184-9) [facility] [id number] 12:09:44 Test Item Value Reference Range Interpretation Comments POC-GLUCOSE METER 103 mg/dL 70-110 : [facility] (BEAKER) (test code = [facility], 1538) 277[address]: Coal Screener/Techni placido ID = [id number] for SA MARTINTAN CHILDS POCT-GLUCOSE [id number] 08:36:18 Test Item Value Reference Range Interpretation Comments POC-GLUCOSE METER 93 mg/dL 70-110 : [facility] (BEAKER) (test code = [facility], 1538) 238[address]: Coal Screener/Techni placido ID = [id number] for TAN MCCALLUM BASIC METABOLIC [id number] 07:32:48 Test Item Value Reference Range Interpretation [...] S NOT APPLICABLE FOR DIALYSIS PATIEN TS. Coal Screener ID - SARAH [id number] 07:31:46 Test Item Value Reference Range Interpretation Comments PHOSPHORUS (BEAKER) (test code = 4.4 mg/dL 2.3-4.7 604) Coal Screener ID - SARAH [id number] 07:31:45 Test Item Value Reference Range Interpretation Comments MAGNESIUM (BEAKER) (test code = 1.5 mg/dL 1.6-2.6 L 627) Coal Screener ID - SARAH LCBC W/PLT COUNT & AUTO [id number] 05:57:06 Test Item Value Reference Range Interpretation [...] 0-1 PERCENT (BEAKER) (test code = 2801) Screen, [id number] 22:44:35 Test Item Value Reference Range Interpretation Comments Preg Test, Ur (test code = 2112-1) Negative Negative Lab Interpretation (test code = Normal 20407-6) [facility] Center[facility], [id number] 22:44:35 Test Item Value Reference Range Interpretation Comments TEST URINE (BEAKER) (test Negative Negative code = 583) POCT-GLUCOSE [id number] 22:43:22 Test Item Value Reference Range Interpretation Comments POC-GLUCOSE METER 93 mg/dL 70-110 : TESTED A T [facility] 6720 (BEAKER) (test code = [facility], 1538) 740[address]: Coal Screener/Techni placido ID = [id number] for OLAL IA LAMAS POCT-GLUCOSE [id number] 17:27:44 Test Item Value Reference Range Interpretation Comments POC-GLUCOSE METER 77 mg/dL 70-110 : TESTED A T [facility] 6720 (BEAKER) (test code = [facility], 1538) 88335: Coal Screener/Techni placido ID = [id number] for STACEY LUCERO POCT-GLUCOSE [id number] 13:58:13 Test Item Value Reference Range Interpretation Comments POC-GLUCOSE METER 107 mg/dL 70-110 : TESTED A T [facility] 6720 (BEAKER) (test code = [facility], 1538) 77444: Coal Screener/Techni placido ID = [id number] for HOA GUERRA POCT-GLUCOSE [id number] 12:37:03 Test Item Value Reference Range Interpretation Comments POC-GLUCOSE METER 69 mg/dL 70-110 L : TESTED A T [facility] 6720 (BEAKER) (test code = [facility], 1538) 34878: Coal Screener/Techni placido ID = [id number] for STACEY LUCERO POCT-GLUCOSE [id number] 08:28:57 Test Item Value Reference Range Interpretation Comments POC-GLUCOSE METER 87 mg/dL 70-110 : TESTED A T [facility] 6720 (BEAKER) (test code = [facility], 1538) 57384: Coal Screener/Techni placido ID = [id number] for GIFTY Pino STACEY BASIC METABOLIC [id number] 06:42:08 Test Item Value Reference Range Interpretation [...] S NOT APPLICABLE FOR DIALYSIS PATIEN TS. Coal Screener ID - PIAYA [id number] 04:52:29 Test Item Value Reference Range Interpretation Comments MAGNESIUM (BEAKER) (test code = 1.5 mg/dL 1.6-2.6 L 627) Coal Screener ID - SARAH [id number] 04:52:29 Test Item Value Reference Range Interpretation Comments PHOSPHORUS (BEAKER) (test code = 4.4 mg/dL 2.3-4.7 604) Coal Screener ID - SARAH LCBC W/PLT COUNT & AUTO [id number] 04:02:49 Test Item Value Reference Range Interpretation [...] PERCENT (BEAKER) (test code = 2801) POCT-GLUCOSE [id number] 22:29:32 Test Item Value Reference Range Interpretation Comments POC-GLUCOSE METER 121 mg/dL 70-110 H : TESTED A T [facility] 6720 (BEAKER) (test code = [facility], 153) 60445: Coal Screener/Techni placido ID = [id number] for Cherelle Holcomb POCT-GLUCOSE [id number] 17:13:32 Test Item Value Reference Range Interpretation Comments POC-GLUCOSE METER 107 mg/dL 70-110 : TESTED A T [facility] 6720 (BEAKER) (test code = [facility], [facility]8) 36552: Coal Screener/Techni placido ID = [id number] for SA NTOS, TAN POCT-GLUCOSE [id number] 13:02:16 Test Item Value Reference Range Interpretation Comments POC-GLUCOSE METER 101 mg/dL 70-110 : TESTED A T [facility] 6720 (BEAKER) (test code = [facility], 153) 89812: Coal Screener/Techni placido ID = [id number] for SA NTOS, TAN POCT-GLUCOSE [id number] 09:28:30 Test Item Value Reference Range Interpretation Comments POC-GLUCOSE METER 138 mg/dL 70-110 H : TESTED A T [facility] 6720 (BEAKER) (test code = [facility], [facility]8) 60799: Coal Screener/Techni placido ID = [id number] for Co Gricelda gunna BASIC METABOLIC [id number] 07:57:11 Test Item Value Reference Range Interpretation [...] S NOT APPLICABLE FOR DIALYSIS PATIEN TS. Coal Screener ID - KORY [id number] 07:07:36 Test Item Value Reference Range Interpretation Comments MAGNESIUM (BEAKER) (test code = 1.6 mg/dL 1.6-2.6 627) Coal Screener ID - KORY [id number] 07:07:36 Test Item Value Reference Range Interpretation Comments PHOSPHORUS (BEAKER) (test code = 3.6 mg/dL 2.3-4.7 604) Coal Screener ID - KORY GCBC W/PLT COUNT & AUTO [id number] 06:30:03 Test Item Value Reference Range Interpretation [...] PERCENT (BEAKER) (test code = 2801) POCT-GLUCOSE [id number] 01:25:00 Test Item Value Reference Range Interpretation Comments POC-GLUCOSE METER 107 mg/dL 70-110 : [facility] (BEAKER) (test code = [facility] [place], 1538) [address]78[address]: Coal Screener/Techni placido ID = [id number] for Barry hermanyen Astrid Clostridium difficile GDH [id number] 21:34:16 Test Item Value Reference Range Interpretation Comments C. Difficle Toxin Negative Negative (test code = 1918872166) C. Difficile GDH Negative Negative No indicati on of Antigen (test code = Clostri dium 2071062734) difficile infection and n o colonization. Discontinue enteric isolati on and therapy. SHAMA (test code = Testing performed SHAMA) by Ale[employer] Rapid Cassette Assay. For GDH, published sensitivity of the assay is 98.7% compared to cytotoxicity testing. For Toxin AB, published sensitivity is 87.8% and specificity 99.4% compared to cytotoxicity testing.Verificati on of kit performance was done by the [facility] Microbiology Lab prior to clinical use. Lab Interpretation Normal (test code = 68383-2) [facility]. DIFFICILE GDH [id number] 21:34:16 Test Item Value Reference Range Interpretation Comments CDT TOXIN (test code Negative Negative = 8859860770) CDT GDH ANTIGEN (test Negative Negative No ind ication of code = 9554360219) Clostridi um difficile infection and n o colonization. Discontinue ent marcellus isolation and t herapy. Testing performed by Alere Rapid Cassette Assay. For GDH, published sensitivity of the assay is 98.7% compared to cytotoxicity testing. For Toxin AB, published sensitivity is 87.8% and specificity 99.4% compared to cytotoxicity testing.Verification of kit performance was done by the [facility]biology[facility] prior to clinical use.POCT-GLUCOSE [id number] 17:27:04 Test Item Value Reference Range Interpretation Comments POC-GLUCOSE METER 103 mg/dL 70-110 : TESTED A T [facility] 6720 (BEAKER) (test code = FRITZ Costa [facility], 1538) 07477: Coal Screener/Techni placido ID = [id number] for AMY WADEY BASIC METABOLIC [id number] 13:10:21 Test Item Value Reference Range Interpretation [...] S NOT APPLICABLE FOR DIALYSIS PATIEN TS. Coal Screener ID - SARAH LPOCT-GLUCOSE [id number] 12:38:04 Test Item Value Reference Range Interpretation Comments POC-GLUCOSE METER 98 mg/dL 70-110 : TESTED A T [facility] 6720 (BEAKER) (test code = [facility], 1538) 22758: Coal Screener/Techni placido ID = [id number] for STACEY LUCERO [id number] 10:24:49 Test Item Value Reference Range Interpretation Comments PHOSPHORUS (BEAKER) 3.1 mg/dL 2.3-4.7 Specimen slightly (test code = 604) hemolyzed Coal Screener ID - SARAH [id number] 10:24:48 Test Item Value Reference Range Interpretation Comments MAGNESIUM (BEAKER) 1.6 mg/dL 1.6-2.6 Specimen slightly (test code = 627) hemolyzed Coal Screener ID - SARAH LPOCT-GLUCOSE [id number] 08:32:03 Test Item Value Reference Range Interpretation Comments POC-GLUCOSE METER 109 mg/dL 70-110 : TESTED A T [facility] 6720 (BEAKER) (test code = [facility], 1538) 13328: Coal Screener/Techni placido ID = [id number] for STACEY WADE CBC W/PLT COUNT & AUTO [id number] 06:07:07 Test Item Value Reference Range Interpretation [...] PERCENT (BEAKER) (test code = 2801) POCT-GLUCOSE [id number] 22:20:44 Test Item Value Reference Range Interpretation Comments POC-GLUCOSE METER 96 mg/dL 70-110 : TESTED Missy T [facility] 6720 (BEAKER) (test code = [facility], 1538) 755[address]: Coal Screener/Techni placido ID = [id number] for Jennifer Ryan POCT-GLUCOSE [id number] 17:25:39 Test Item Value Reference Range Interpretation Comments POC-GLUCOSE METER 97 mg/dL 70-110 : TESTED A T [facility] 6720 (BEAKER) (test code = [facility], 1538) 12955: Coal Screener/Techni placido ID = [id number] for ROSEMARY TAN CHILDS POCT-GLUCOSE [id number] 12:48:28 Test Item Value Reference Range Interpretation Comments POC-GLUCOSE METER 113 mg/dL 70-110 H : TESTED A T [facility] 6720 (BEAKER) (test code = [facility], 1538) 06462: Coal Screener/Techni placido ID = [id number] for TAN ZARATE POCT-GLUCOSE [id number] 08:31:45 Test Item Value Reference Range Interpretation Comments POC-GLUCOSE METER 111 mg/dL 70-110 H : TESTED A T [facility] 6720 (BEAKER) (test code = [facility], 1538) 89969: Coal Screener/Techni placido ID = [id number] for SA TAN ORTIZ BASIC METABOLIC [id number] 06:59:39 Test Item Value Reference Range Interpretation [...] S NOT APPLICABLE FOR DIALYSIS PATIEN TS. Coal Screener ID - PIAYA [id number] 06:52:24 Test Item Value Reference Range Interpretation Comments PHOSPHORUS (BEAKER) (test code = 3.1 mg/dL 2.3-4.7 604) Coal Screener ID Mike SMITH [id number] 06:52:23 Test Item Value Reference Range Interpretation Comments MAGNESIUM (BEAKER) (test code = 1.6 mg/dL 1.6-2.6 627) Coal Screener ID Mike SMITH LCBC W/PLT COUNT & AUTO [id number] 05:54:55 Test Item Value Reference Range Interpretation [...] PERCENT (BEAKER) (test code = 2801) POCT-GLUCOSE [id number] 22:06:55 Test Item Value Reference Range Interpretation Comments POC-GLUCOSE METER 116 mg/dL 70-110 H : TESTED A T [facility] 6720 (BEAKER) (test code = [facility], [facility]8) 69077: Coal Screener/Techni placido ID = [id number] for Jennifer Hathaway POCT-GLUCOSE [id number] 18:50:57 Test Item Value Reference Range Interpretation Comments POC-GLUCOSE METER 102 mg/dL 70-110 : TESTED A T [facility] 6720 (BEAKER) (test code = [facility], 1538) 71450: Coal Screener/Techni placido ID = [id number] for SA DIANA, TAN POCT-GLUCOSE [id number] 11:35:12 Test Item Value Reference Range Interpretation Comments POC-GLUCOSE METER 121 mg/dL 70-110 H : [facility] (BEAKER) (test code = [facility], 1538) 60355: Coal Screener/Techni placido ID = [id number] for SA NTOS, TAN SARS-CoV2/RT-PCR (Asymptomatic ONLY)2022-06-13 11:11:10 Test Item Value Reference Range Interpretation Comments SARS-COV2/RT-PCR Negative Not Detected, (test code = Negative, See 65120-1) external report for linked test SARS-COV-2 [facility] PERFORMING LAB (test code = 00779-9) SHAMA (test code = Negative result for this SHAMA) test determines that SARS-CoV-2 RNA was not [...] be considered in cases of suspected false negatives. The limit of detection for this assay is 800 copies/mL. This SARS CoV-2 test is a real-time RT-PCR test intended for the qualitative detection of nucleic acid from SARS-CoV-2 in a nasopharyngeal swab specimen collected from individuals suspected of COVID-19 by their healthcare provider. This test has not been Food and Drug Administration (FDA) cleared or approved. This is a modified version of an approved Emergency Use Authorization (EUA) and is in the process of review by the FDA. Once authorized by the FDA, the issued EUA will be effective until the declaration that circumstances exist justifying the authorization of the emergency use of in vitro diagnostic tests for detection and/or diagnosis of COVID-19 is terminated under Section 564(b)(2) of the Act or the EUA is revoked under Section 564(g) of the Act. Fact Sheet for Healthcare Providers:https://www.[employer]/sites/default/f omid/product/documents/F act_Sheet_HC_Providers_L jrf_DJJD-FsU-2.pdf Fact Sheet for Healthcare Patients:https://www.[employer]/sites/default/fi les/product/documents/Fa ct_Sheet_Patients_Lyra_S ARS-CoV-2.pdf Performing Laboratory:[facility] [place] [address] [facility] ([facility])2022-06-13 11:11:10 Test Item Value Reference Range Interpretation Comments SARS-COV2/RT-PCR (test Negative Not Detected, Negative, code = 5340585) See external report for linked test SARS-COV-2 PERFORMING LAB [facility] (test code = 5339458) Negative result for this test determines that [...] of the Act.Fact Sheet for Healthcare Prov iders:https://www.[employer]/sites/default/files/product/documents/Fact_Sheet_HC _Vgpjmrjnm_Iqsx_SPSZ-XkF-9.pdfFact Sheet for Healthcare Patients:https://www.[employer]/sites/default/files/product/docume nts/Itmt_Eiouq_Bsnqkejs_Sytd_QBTY-TcH-9.pdfPerforming Laboratory:[facility] [place] [address](CELLAVISION MANUAL DIFF) 2022-06-13 07:02:04 Test Item Value [...] CONCENTRATION Adequate (CELLAVISION)(BEAKER) (test code = 3438) Coal Screener ID - gladys Jackson comments: Slide comments:CBC W/PLT COUNT & AUTO [id number] 07:02:03 Test Item Value Reference Range Interpretation [...] (BEAKER) (test code = 413) BASIC METABOLIC [id number] 06:46:12 Test Item Value Reference Range Interpretation [...] S NOT APPLICABLE FOR DIALYSIS PATIEN TS. Coal Screener ID - SARAH [id number] 05:55:45 Test Item Value Reference Range Interpretation Comments MAGNESIUM (BEAKER) (test code = 1.6 mg/dL 1.6-2.6 627) Coal Screener ID - SARAH [id number] 05:55:45 Test Item Value Reference Range Interpretation Comments PHOSPHORUS (BEAKER) (test code = 2.6 mg/dL 2.3-4.7 604) Coal Screener VALDEZ SMITH LPOCT-GLUCOSE [id number] 01:10:13 Test Item Value Reference Range Interpretation Comments POC-GLUCOSE METER 117 mg/dL 70-110 H : TESTED A T [facility] 6720 (BEAKER) (test code = [facility], 1538) 045[address]: Coal Screener/Techni placido ID = [id number] for JEANIE ANTUNEZAK Tissue [id number] 15:05:15 Test Item Value Reference Range Interpretation Comments Case Report (test code Surgical Pathology = 104) Report Case: [id number] Authorizing Provider: Liz Chandler MD Collected: 06/07/2022 03:36 PM Ordering Location: [facility] Received: 06/08/2022 08:19 AM SERVICES Pathologist: Michelle Kothari MD Specimen: Omentum, OMENTAL MASS DIAGNOSIS (test code = n6qnoGJwWAApr7rlAWKmyFR 3220) uZzEwMzNcZnRuYmpcdWMxIH tccnRmMVxlcGljOTYwMlxhb pObTOOmoFCiJ4LcvayvDRqd PO4bEE6qsSmmhBQmkUPgDSB lSvTgj9shi257oLQpx9tiAW TXudisnJs1lTzwQ97xk9W1U jqiE01qiAQtCAC0AQTfXXMr cVFpLHLwSHA2OYVpbPPgZ5p pOEBuZY7fproqDSbkFRvwUR WnaNQ5YCHzhQRyN4ViPBMcS MfuSHFqwmx9XaImAm1scMOc eTcyMFxwYXJkXHBsYWluXGZ aEyYmB32DUlPFREYADQRGRL PTIX6GX8tlqRPgMDKdSoRlZ DNDJYAYXPKLVACVH8EqGPjN S6LPQLgCGDanBqMGUC4EE8G LR7vSRBGFXBAYRhqOOKnXWq lPWC9LGHqVCdRYEgYsY2SOM 7pUOMVQLAoOJdasQGR0d9wu dGYxXHNzdGUxODAwMFxhbnN lYAZqXonsvurjSCVfVKE0wl TaOKXnGOksDXClCZzwWe8nb SMyxFctBrSpVGBcg4yvzzTS tyteeGk6l8gqJFRcYkA7dRU jOUtwW3bysgFpbVWnJOGwKF d2eX33OCRicW7fuUXoKStwb tTsPjH6LKcwYGHuUjN9FZKx nZHnQGOoL8zlVSDkDDfmQQW bXSdemTTcDBD2fSred7Q8iJ VzaGVldHtcZjBcZnMyMiBOb 2FgKDx5uIsoF2BoNSKiKvH5 bHQgUGFyYWdyYXBoIEZvbnQ 6cT55OWgtdwC9uIWld1Ezu1 2iy858vO8dbQQdWZC9YNLoS HPhwIMcYCCuIKX4PXYmvWIn I7ceUTWyHG6jqdsgFBdhGUo dCSSqnTF7HONlgEIdV0PrBM BkGAwhVHNbagg9HuPgAj2zl EInpWpoCLtwb0mgk1jcaEDv Cqa9XJHeUjTqMqvzHXzpu6O lm8ukLLYjzu7gJMU4zZUwvR bbl9U3vQIpUBTwoWNdFMMrU E7icOBxDREshC1ltelmNSIc YnJkcmhlYWRccGdicmRyZm9 soXzxRZA3GCzmP8kvoW0nMx J3LUlhW7gohP0rSKq8TMkaW IWtpDM5oqM8OCEllKDeK6Ms lE7oUFGdCA9yjqh5h1ekFGV 8GBotOUWhZeK3otW0GYFqlO FsYJOfyVvnPTiei291XHC9C lJyJPZyv2YgX3VzgJyhV70w wMpfB72sXDWbhPfozC3heBb ysO2kDfZfPdBhHGbwzUzgBX 0dGPTvX8wsqNKtLWKgRJSgX 4adCzZwrW9hrRkiZFzizkEk NFWrQdz3UUMxeWMsBWExZfo 9KAKuACVpZ42anslnEAR3hJ 5ba1xnb7BhOBzyBBT6DDWyf 88sZFguuvK5VGmiNe34POto ASM5YWrtWAE2wK== CPT Code(s) (test code m9elvXWiGWNpdKL1UyYcJGA = 3357) vl8koz9RzlJPkyGSmOSwpvL DifiWosd67gVG7fX72LP8hN PJdAjW0ZMIqmaZ4Bef5OHWc ABAriZOaX760g5npy3wcawJ bcWW8lCsuFYBbqzvrRaO5SQ xtHNCxevvnANx7HVaiZXFzg RS1LKMdeYJfH4FpFVLuSD2b moy6VDZ0DJmsTWNbNbM2ODL khQZoOUKhuHvrUAkha064FL S9MqPjDESqsjMauHjfhM2zG qZvVFZ9CTXfGPqsFGW2 CLINICAL HISTORY (test h4xdmMSxRSDksEI0FrPyAXV code = 3356) qp9mnq2QbsTYhaECmLUobfB LrngGzop00xHT6xI28BY9rO TMpWdX0THJldrJ3Yop9EYJt BOMznOEaU165h8ifk3jdxvN hkIY7EHKmTSKzV4MgNT2aAK OwbNSfN50jcCOhSII0OGZxI MWivTDdMVCkOIT0MTOpwDCp H3jiGTAqBI5fnzknNEqcYTb pUUMrjPW7LJHahNZbY8OkSG EzIXuvZQEtoua0NrTbNg5gu GVyeTcyMFxwYXJkXHJpMVxw bGFpblxmczIwXGNmMSBJbnR ei0AdxnZxHR1ci7MpzCS3eY 4jSTFxsi4= GROSS DESCRIPTION r7xbbSEhRKGxfTMQXKTuY1s (test code = zkoAfQSExjYInO8AuhqyqQB [id number]) okBN3pHQ5taSebeGWcuTVuD E2NHYDrNaSmTIMwoVInsjMt OcCgVKZbrZVuhGC1VPDuFY1 qmbutBZrhBYudZFWdujP0YZ ApySRaI1QsGPDkAG7hidhgG HY6JJgqvG1ooeYCOrkoHo9a dHRibHtcZjFcZmNoYXJzZXQ aAVLeaUltGLElVJn7mH4NXc sxFBY1KEUOMvciWCDgOK8Ab 4vbTACgtFZwDEF6ESnagEMq EWPtBSNuUJk8KGLmORwnhYI mCO6lmHzqLrdggJylm9YoyG BcXGlkIDUxMDAyIFxcZGIgI L2WZoLbVUG0TtW0MwDiJMs7 GNb2PZ9YCdMuIQDyCWF1RYV wNcXqNTz4RJyvSQ0CKZY6FU G5YWGkOiZ6MXOvOtRgUJNxW iBcXGYgQXJpYWwgXFxmbCBc IL8zhQdmuIHcmvRFDyENeBW udHVtLlxwYXIgDQpcZXBpY0 4lt6VIc4NoNX3NPPz9jdMhb bwuxS3gFQTholUcPOkipNTt V8pjEdYiXPOKPGZwfFFbKCX mcmVzaCBsYWJlbGVkIHdpdG ggdGhlIHBhdGllbnQncyBuY E5sQRSqN4Agi7Ckd89lwvFn WbWcFCNjUWQzp35hvuUsvQI mSHVsPoTdqeCoFIXnFFP1XA JyZJG7NTVvSRAorDGrv5N4m N6lLR2sMYBfzs89MNyxk2sd HIGyWmWyOaM8pPbaq78gobR 2pC1eQMEjR7Dao10xrwhcig N3QBKdcuWyMGXfHSR2RYZbP yQ2UZCmRFSofTD4zazqd6U4 iRQdBBR8h3Fao4u8mDMdJQU yr890bVRxkr5ixlPgnC3evp vtWW3rKYNfF0BzbMzwN5GhF 2lmaWVkIHdhbGwgdGhhdCBl eHVkZXMgdGFuLXllbGxvdyw drtjtZ595buPfoSBqZI4vXW QeMFQrVA8xqX7eepkkaJ2sq cBbkUBzQKDeoILsb5AuBqZf FYChitQ0LA4puXHgcN90TCY mUOWmfEIgw5VszVR6PcAuQa WudtRjDJ20AKFkioLse9Bpy WgtpuXdSMKxROR0Cv5raLIm ROOlvbQVRW8aqOllTQLdkSh qAJMTgNnqleRDlon6QVgmSD MsIFBBLCBIVCAoQVNDUCkNC lxwbGFpblxlcGljTmVzdERv GgUatIkzhF83QZHcrIKrBIY 4QO2rDBPvfwgnCPRoJAIxRK S3AQsytI02mIJaFDZiTYZry QEbyI6UREPjHGQ0FOebrO80 zQPnGF8AGHKkIBJ0DZXzyGT uZIY6LN3eeW6RsZ== MICROSCOPIC e6hzdJAiFYVbyZR0HcOiPWW DESCRIPTION (test code xx2fbz4CiaQAndEIaPRckkF = 3371) WjltHptc97zKJ0bS12JJ9oZ HQuDjU9QEXkwjD9Fzj8LEFr ZNLcsZHjR222j2vop4urrkN vlVZ7lNsiUYPixplgEcJ9DQ ryVQSoeblxIQf7CPylPYTvl LW0IWYacNQnE7WjTKXrSC9o wtu9VUQ4UAdkKMNcGlE9BFO kaOMyPGHqfVpkSCryt061EX D8DuKjCTNgmjBioJklyD0zX zPdVJGSCSMhv8WjOKQpPFDq cn0= Gross assessment was [facility] performed at ([facility], code = 2777) Department of Pathology, [address] [place] [address], Technical component [facility] was performed at ([facility], code = 2778) Department of Pathology, [address] [place] [address], Professional component [facility] was performed at ([facility], code = 2779) Department of Pathology, [address] [place] [address], [facility] [id number] 15:05:15Surgical Pathology Report Case: [id number] Authorizing Provider: Liz Chandler MD Collected: 06/07/2022 03:36 PM Ordering Location: [facility] Received: 06/08/2022 08:19 AM SERVICES Pathologist: Michelle Kothari MD Specimen: Omentum, OMENTAL MASS OMENTAL MASS, BIOPSY -MATURE ADIPOSE TISSUE WITH FAT NECROSIS, CHRONIC INFLAMMATION AND CALCIFICATION Signing Pathologist Direct Phone Line: [phone] signed by Michelle Kothari MD on 06/12/2022 at 3:05 [id number] obstructionA. Omentum.Received fresh labeled with the patient's name, accession number and "omental mass"is a 6.0 x 4.0 x 1.0 cm portion of hope-yellow, fibrofatty omentum. Sectioning reveals a 1.5 x 1.3 x 1.0 cm unilocular cyst with a smooth inner lining and focally calcified wall that exudes hope-yellow, viscous fluid. The remaining uninvolved cut surface is hope- yellow and fibrofatty. [employer] Project [employer] sections are submitted in A1.MARCELINO Roldan, HT (ASCP)Performed.[facility], Department of Pathology, [address] [place] [address], [facility], Department of Pathology, [address] [place] [address], [facility], [facility] of [facility], [address] [place] [address], IRY W/PLT COUNT & AUTO [id number] 07:13:37 Test Item Value Reference Range Interpretation [...] CONCENTRATION Adequate (CELLAVISION)(BEAKER) (test code = 3438) Coal Screener ID - gladys Jackson comments: Slide comments:BASIC [...] S NOT APPLICABLE FOR DIALYSIS PATIEN TS. Coal Screener ID - ENRRIQUE [id number] 05:24:39 Test Item Value Reference Range Interpretation Comments MAGNESIUM (BEAKER) 2.1 mg/dL 1.6-2.6 Specimen slightly (test code = 627) hemolyzed Coal Screener ID - ENRRIQUE [id number] 05:24:39 Test Item Value Reference Range Interpretation Comments PHOSPHORUS (BEAKER) 3.2 mg/dL 2.3-4.7 Specimen slightly (test code = 604) hemolyzed Coal Screener ID - ENRRIQUE BRENNAAD, ABDOMEN/KUB, 1 VIEW [id number] 01:25:00Reason for exam:->abdominal distensionShould this be performed at the bedside?->[facility] 1980 Sex: FFINAL REPORT EXAMINATION: X-ray [...] I suspect there isadjacent segments of jejunum bexb-cw-fwvf in the left abdomen mimicking a single [...] orogastric tube is in place. Signed: Janusz Viramontes MDReport Verified D ate/Time: 06/12/2022 01:25:05 RAD, CHEST, 1 VIEW, NON [id number] 10:18:00Reason for exam:->PICC tip location verificationShould this be performed at the bedside?->[facility] 1980 Sex: FFINAL REPORT Exam: RAD, [...] CONCENTRATION Increased (CELLAVISION)(BEAKER) (test code = 3438) Coal Screener ID - gladys Jackson comments: Slide comments:CBC W/PLT COUNT & AUTO [id number] 09:35:45 Test Item Value Reference Range Interpretation [...] (BEAKER) (test code = 413) BASIC METABOLIC [id number] 07:31:31 Test Item Value Reference Range Interpretation [...] S NOT APPLICABLE FOR DIALYSIS PATIEN TS. Coal Screener ID - [id number] 07:27:11 Test Item Value Reference Range Interpretation Comments PHOSPHORUS (BEAKER) (test code = 5.0 mg/dL 2.3-4.7 H 604) Coal Screener ID - [id number] 07:27:10 Test Item Value Reference Range Interpretation Comments MAGNESIUM (BEAKER) (test code = 1.9 mg/dL 1.6-2.6 627) Coal Screener ID - ADMINCALCIUM, [id number] 06:26:13 Test Item Value Reference Range Interpretation [...] CONCENTRATION Increased (CELLAVISION)(BEAKER) (test code = 3438) Coal Screener ID - Cullen GunnshayleeJulietnatalieCollette comments: Slide comments:CBC W/PLT COUNT & AUTO [id number] 23:40:23 Test Item Value Reference Range Interpretation [...] WBC 0-0 (BEAKER) (test code = 413) [id number] 21:36:13 Test Item Value Reference Range Interpretation Comments PREALBUMIN (BEAKER) (test code = 586) 3 mg/dL 14-45 L Coal Screener ID - ADMINCALCIUM, [id number] 18:21:11 Test Item Value Reference Range Interpretation Comments CALCIUM IONIZED (BEAKER) (test 1.07 mmol/L 1.12-1.27 L code = 698) PH, BLOOD (BEAKER) (test code = 7.36 1810) HEPATIC FUNCTION [id number] 18:18:17 Test Item Value Reference Range Interpretation [...] (test code = 14 U/L 6-55 347) Coal Screener ID - ADOLFOCT, [id number] 16:15:00Please give contrast through G- tubeUnlisted Reason for Exam - Click Yes and Enter Reason Below->NoIs this for enterography?->NoWill this procedure require oral contrast?->Yes [facility] : 1980 Sex: FFINAL REPORT CT of [...] of ascites. Hepatic steatosis. Signed: Nicolette Brand MDReport Verified Date/Time: 06/10/2022 16:15:24 Reading Location: [facility] B1 C013W Consult Reading Room [id number] 14:41:23 Test Item Value Reference Range Interpretation Comments TRIGLYCERIDES (BEAKER) (test code = 45 mg/dL 540) TRIGLYCERIDE REFERENCE RANGELow Risk <150Borderline Risk 150-199High Risk 200-499Very High Risk >=500Operator ID - ADMINRAD, ABDOMEN/KUB, 1 VIEW AP 2022-06-10 08:25:00Reason for exam:->emesis [facility] : 1980 Sex: FFINAL REPORT RAD, ABDOMEN/KUB, [...] no free air is identified. Signed: Clare Starrepronni Verified Date/Time: 06/10/2022 08:25:52 [id number] 06:31:07 Test Item Value Reference Range Interpretation Comments MAGNESIUM (BEAKER) (test code = 2.0 mg/dL 1.6-2.6 627) Coal Screener ID - KORY [id number] 06:31:07 Test Item Value Reference Range Interpretation Comments PHOSPHORUS (BEAKER) (test code = 4.2 mg/dL 2.3-4.7 604) Coal Screener ID - KORY GBASIC METABOLIC [id number] 06:31:06 Test Item Value Reference Range Interpretation [...] S NOT APPLICABLE FOR DIALYSIS PATIEN TS. Coal Screener ID - KORY Vivienne(CELLAVISION MANUAL DIFF)2022-06-09 08:50:40 Test Item Value Reference [...] CONCENTRATION Adequate (CELLAVISION)(BEAKER) (test code = 3438) Coal Screener ID - Connie OverholtUser comments: Slide comments:CBC W/PLT COUNT & AUTO [id number] 08:50:35 Test Item Value Reference Range Interpretation [...] (BEAKER) (test code = 413) BASIC METABOLIC [id number] 07:32:13 Test Item Value Reference Range Interpretation [...] S NOT APPLICABLE FOR DIALYSIS PATIEN TS. Coal Screener ID - KORY [id number] 07:32:13 Test Item Value Reference Range Interpretation Comments MAGNESIUM (BEAKER) (test code = 1.9 mg/dL 1.6-2.6 627) Coal Screener ID - KORY [id number] 07:32:13 Test Item Value Reference Range Interpretation Comments PHOSPHORUS (BEAKER) (test code = 3.6 mg/dL 2.3-4.7 604) Coal Screener ID - KORY [id number] 05:47:16 Test Item Value Reference Range Interpretation Comments PHOSPHORUS (BEAKER) (test code = 5.2 mg/dL 2.3-4.7 H 604) Coal Screener ID - ADMINBASIC METABOLIC [id number] 05:47:15 Test Item Value Reference Range Interpretation [...] S NOT APPLICABLE FOR DIALYSIS PATIEN TS. Coal Screener ID - [id number] 05:47:15 Test Item Value Reference Range Interpretation Comments MAGNESIUM (BEТАТЬЯНА) (test code = 1.5 mg/dL 1.6-2.6 L 627) Coal Screener ID - ADMINSARS-COV2/RT-PCR ([facility])2022-06-07 12:34:18 Test Item Value Reference Range Interpretation Comments SARS-COV2/RT-PCR Negative Negative The SARS-Co V-2 target (test code = nucleic acids a re not [id number]) detected in thi s specimen. Negative result [...] revoked sooner. Fact Sheet for Healthcare Providers: https://www.[employer]co m/Documents/Xpert%20Xpress%20SARS%20CoV-2/Fact%20Sheets/245-2082%87QPBR-BJT-7%20 HEALTHCARE%20PROVIDERS%20FACT%20SHEET.pdf Fact Sheet for Healthcare Patients: https://www.[employer]/Documents/Xpert%20Xp ress%20SARS%20CoV-2/Fact%20Sheets/302-3801%15UGXR-ZAA-3%20PATIENT%20FACT%20SHEET .pdfCT, [id number] 11:17:00Unlisted Reason for Exam - Click Yes and Enter Reason Below->NoIs this for enterography?->NoWill this procedure require oral contrast?->No [facility] : 1980 Sex: FFINAL REPORT ABDOMINAL AND [...] MDReport Verified Date/Time: 06/07/2022 11:17:35 Reading Location: [facility] C013Y CT Body Reading Room LIPID [id number] 07:08:34 Test Item Value Reference Range Interpretation [...] Borderline 130-159 High 160-189 Very High >=190 Coal Screener ID - KORY GBASIC METABOLIC [id number] 06:56:16 Test Item Value Reference Range Interpretation [...] S NOT APPLICABLE FOR DIALYSIS PATIEN TS. Coal Screener ID - KORY [id number] 06:56:16 Test Item Value Reference Range Interpretation Comments MAGNESIUM (BEAKER) (test code = 1.7 mg/dL 1.6-2.6 627) Coal Screener ID - KORY [id number] 06:56:16 Test Item Value Reference Range Interpretation Comments PHOSPHORUS (BEAKER) (test code = 4.2 mg/dL 2.3-4.7 604) Coal Screener ID - KORY GPROTHROMBIN [id number] 06:05:15 Test Item Value Reference Range Interpretation Comments PROTIME (BEAKER) 16.9 seconds 11.9-14.2 H (test code = 759) INR (BEAKER) (test 1.39 See_Comment [Automat ed message] code = 370) The system [employer] generated this result transmitted ref erence range: <=5.90. The reference range was not used to int erpret this result as normal/abnormal . RECOMMENDED COUMADIN/WARFARIN INR THERAPY RANGESSTANDARD DOSE: 2.0 - 3.0 Includes: PROPHYLAXIS for venous thrombosis, systemic embolization; TREATMENT for venous thrombosis and/or pulmonary embolus.HIGH RISK: Target INR is 2.5-3.5 for patients with mechanical heart valves.CBC W/PLT COUNT & AUTO [id number] 05:52:26 Test Item Value Reference Range Interpretation [...] % 0-1 PERCENT (BEAKER) (test code = 3621)
[2022-08-11] MEDS ORDERED: NA CHLORIDE 0.9% 1,000 ML ONE (15:48)
[2022-08-11] MEDS ORDERED: MORPHINE 4 MG/ML SYR ONE ×2 (15:48→17:00)
[2022-08-11] MEDS ORDERED: ONDANSETRON 4 MG/2 ML VIAL ONE ×2 (15:48→20:51)
[2022-08-11 16:23] LABS: Absolute Lymphocytes (CBC) 2.1 K/uL (0.7-4.9); Hematocrit 34.7 % (36.0-45.0); Lymphocytes % 36.2 % (15.3-44.8); MCV 88.6 fL (80-100); MPV 7.4 fL (7.6-11.3); RBC Red Blood Cell Count 3.91 M/uL (3.86-4.86)
[2022-08-11] MEDS ORDERED: DIPHENHYDRAMINE 50 MG/ML VIAL ONE (17:00)
[2022-08-11 17:20] LABS: Albumin 2.9 g/dL (3.4-5.0); Bilirubin Total 0.2 mg/dL (0.2-1.0); Magnesium 1.6 mg/dL (1.8-2.4); Potassium 3.4 mmol/L (3.5-5.1); Protein, Total 7.1 g/dL (6.4-8.2)
--- NOTE | 2022-08-11 18:10 | RAD REPORT ---
EXAM DESCRIPTION: CT - Abdomen Pelvis W Contrast - 08/11/2022 5:55 pm CLINICAL HISTORY: Abdominal pain COMPARISON: June 2022 TECHNIQUE: Computed axial tomography of the abdomen pelvis was obtained. 100 cc Isovue-300 was admin istered intravenously. Oral contrast was not requested which limits evaluation of bowel and appendix All CT scans are performed using dose optimization technique as appropriate and may include automated exposure control or mA/KV adjustment according to patient size. FINDINGS: Mild fatty liver Spleen, pancreas, adrenals and left kidney unremarkable. Small right renal calculus. Cholecystectomy Postsurgical changes involving the bowel. Percutaneous tube within stomach. There is no evidence of diverticulitis. Fluid collection within the anterior subcutaneous tissues of the abdomen has decreased in size. Hysterectomy IMPRESSION: Fluid collection within the anterior subcutaneous tissues of the abdomen has decreased i n size. It is not considered significant.
[2022-08-11] MEDS ORDERED: PROMETHAZINE INJ 25 MG/ML AMP ONE (18:30)
[2022-08-11] MEDS ORDERED: HYDROMORPHONE HCL 0.5 MG/0.5 ML INJ ONE (18:31)
--- NOTE | 2022-08-11 19:58 | ER ---
Nurse's Notes [facility] Name: Prabha Booker Age: 42 yrs Sex: Female : 1980 Arrival Date: 08/11/2022 Time: 15:10 Bed 20 Private MD: Diagnosis: Chronic abdominal pain;G-J Tube Malfunction Presentation: 08/11 15:16 Chief complaint: Tripped over PEG tube an hour ago, c/o severe abdominal pain and blood hb in drainage bag. Coronavirus screen: At this time, the client does not indicate any symptoms associated with coronavirus-19. Ebola Screen: No symptoms or risks identified at this time. Risk Assessment: Do you want to hurt yourself or someone else? Patient reports no desire to harm self or others. Onset of symptoms was August 11, 2022. 15:16 Method Of Arrival: Ambulatory hb 15:16 Acuity: GALINDO 3 hb 20:25 Initial Sepsis Screen: Does the patient meet any 2 criteria? HR > 90 bpm. No. Patient's ke1 initial sepsis screen is negative. Does the patient have a suspected source of infection? No. Patient's initial sepsis screen is negative. Historical: - Allergies: 15:17 No Known Drug Allergies; hb - PMHx: 15:17 Diverticulitis; Fibromyalgia; hb - PSHx: 15:17 section; gastric sleeve; hernia repair; hysterectomy; hb Screenin:40 Abuse screen: Denies threats or abuse. Denies injuries from another. Nutritional tp1 screening: No deficits noted. On. Tuberculosis screening: No symptoms or risk factors identified. Fall Risk No fall in past 12 months (0 pts). No secondary diagnosis (0 pts). IV access (20 points). Ambulatory Aid- None/Bed Rest/Nurse Assist (0 pts). Gait- Normal/Bed Rest/Wheelchair (0 pts) Mental Status- Oriented to own ability (0 pts). Total Hare Fall Scale indicates No Risk (0-24 pts). Assessment: 15:30 General: Appears in no apparent distress. uncomfortable, Behavior is cooperative, tp1 anxious. Pain: Complains of pain in abdomen Pain radiates to back Pain currently is 10 out of 10 on a pain scale. Quality of pain is described as stabbing, Pain began 1 day ago. Is continuous. Neuro: Level of Consciousness is awake, alert, obeys commands, Oriented to person, place, time, situation. Cardiovascular: Patient's skin is warm and dry. Respiratory: Airway is patent Respiratory effort is even, unlabored. GI: Abdomen is round non-distended, Abd is soft Abdomen is tender to palpation Reports nausea. : No signs and/or symptoms were reported regarding the genitourinary system. EENT: No signs and/or symptoms were reported regarding the EENT system. Derm: Skin is pink, warm \T\ dry. Derm: ABD drain with small amount of green drainage in bag. small amount of bleeding noted to drainage insertion site. sit without redness or swelling. Musculoskeletal: Circulation, motion, and sensation intact. 15:58 Reassessment: CO itching to right arm, IV site red, no swelling noted. IV removed, tp1 provider notified. 16:41 Reassessment: Patient appears in no apparent distress at this time. Patient is alert, tp1 oriented x 3, equal unlabored respirations, skin warm/dry/pink. CO to complain of ABD pain, states morphine has not helped. 17:25 Reassessment: Patient appears in no apparent distress at this time. Patient is alert, tp1 oriented x 3, equal unlabored respirations, skin warm/dry/pink. CO ABD pain 10/10, states morphine is not helping, provider notified. 18:46 Reassessment: Patient appears in no apparent distress at this time. Patient is alert, tp1 oriented x 3, equal unlabored respirations, skin warm/dry/pink. resting with mother at bedside. 19:30 Pain: Complains of pain in back and abdomen Pain currently is 9 out of 10 on a pain ke1 scale. Quality of pain is described as stabbing. 20:35 GI: Reports nausea. ke1 Vital Signs: 15:16 BP 148 / 88; Pulse 124; Resp 18; Temp 98.4; Pulse Ox 100% on R/A; Weight 81.65 kg; hb Height 5 ft. 7 in. (170.18 cm); Pain 10/10; 16:46 BP 130 / 81; Pulse 83; Resp 16; Pulse Ox 98% on R/A; tp1 17:30 BP 134 / 90; Pulse 83; Resp 16; Pulse Ox 100% on R/A; tp1 18:20 BP 129 / 88; Pulse 88; Resp 16; Pulse Ox 100% on R/A; tp1 19:22 BP 124 / 79; Pulse 105; Resp 19; Pulse Ox 100% on R/A; ke1 20:15 Pain 5/10; ke1 20:53 BP 125 / 81; Pulse 92; Resp 18; Temp 98.2(O); Pulse Ox 100% on R/A; Pain 5/10; ke1 21:04 Pain 7/10; ke1 15:16 Body Mass Index 28.19 (81.65 kg, 170.18 cm) hb ED Course: 15:10 Patient arrived in ED. am2 15:17 Triage completed. hb 15:17 Arm band placed on. hb 15:23 Aiyana Meza MD is Attending Physician. sd2 15:30 Patient has correct armband on for positive identification. Bed in low position. Call tp1 light in reach. Side rails up X 1. Adult w/ patient. 15:36 Lupe Puente, TERRANCE is Primary Nurse. tp1 15:49 Inserted saline lock: 20 gauge in right antecubital area, using aseptic technique. tp1 Blood collected. 15:58 IV discontinued, intact, bleeding controlled, Pressure dressing applied. tp1 16:35 Inserted saline lock: 22 gauge in left wrist, using aseptic technique. ,using aseptic tp1 technique. inserted by Kolby CARLOS. 16:40 Pulse ox on. NIBP on. tp1 17:57 CT Abd/Pelvis - IV Contrast Only In Process Unspecified. EDMS 19:[address] Andrea Chandler again. mw2 19:[address] [facility] spoke to Jessica Lu. She gave us Dr. Andrea Chandler's answering service. 19:[address] Chandler's answering service. They will page him. mw2 19:[address] Meza with Dr. Drew from Dr. Chandler's group. mw2 19:59 role handed off by Anahi Priest, RN mw2 21:05 No provider procedures requiring assistance completed. ke1 Administered Medications: 15:52 Drug: Zofran (Ondansetron) 4 mg Route: IVP; Site: right antecubital; tp1 16:15 Follow up: Response: Pain is unchanged, physician notified tp1 15:54 Drug: morphine 4 mg Route: IVP; Infused Over: 4 mins; Site: right antecubital; tp1 16:15 Follow up: Response: Pain is unchanged, physician notified tp1 17:00 Drug: NS 0.9% 1000 ml Route: IV; Rate: 1 bolus; Site: left wrist; tp1 17:00 Drug: Benadryl (diphenhydrAMINE) 12.5 mg Route: IVP; Site: left wrist; tp1 18:45 Follow up: Response: Marked relief of symptoms tp1 17:03 Drug: morphine 4 mg Route: IVP; Infused Over: 4 mins; Site: left wrist; tp1 18:45 Follow up: Response: Pain is unchanged, physician notified tp1 18:32 Drug: Phenergan (promethazine) 12.5 mg Route: IVP; Site: left wrist; tp1 19:10 Follow up: Response: Nausea is decreased ke1 18:35 Drug: Dilaudid (HYDROmorphone) 0.5 mg Route: IVP; Site: left wrist; tp1 21:04 Follow up: Pain 7/10 Adult; Response: Pain is decreased ke1 19:57 Drug: Dilaudid (HYDROmorphone) 1 mg Route: IVP; Site: left wrist; ke1 20:15 Follow up: Pain 5/10 Adult; Response: Pain is decreased ke1 20:29 Drug: fentaNYL Patch 100 mcg/hr 1 patches Route: Transdermal; Site: abdomen; ke1 20:53 Drug: Zofran (Ondansetron) 4 mg Route: IVP; Site: left wrist; ke1 21:05 Follow up: Response: Nausea is decreased ke1 Medication: 21:05 VIS not applicable for this client. ke1 Outcome: 19:57 Discharge ordered by . sd2 21:05 Discharged to home ambulatory. ke1 21:05 Condition: good 21:05 Discharge instructions given to patient. 21:06 Patient left the ED. ke1 Signatures: Dispatcher [employer] EDMS Anay Delvalle RN Joan Villaseñor am2 Martinez Martinez mw2 Lupe Puente RN RN tp1 Conner Flanagan RN RN ke1 Aiyana Meza MD MD sd2 Corrections: (The following items were deleted from the chart) 16:35 16:34 Inserted saline lock: 20 gauge in right antecubital area, using aseptic tp1 technique. Blood collected. tp1 18:17 17:00 Reassessment: Patient appears in no apparent distress at this time. Patient is tp1 alert, oriented x 3, equal unlabored respirations, skin warm/dry/pink. CO ABD pain 09/03, states morphine is not helping, provider notified tp1 21:05 19:10 Response: Pain is decreased ke1 ke1
--- NOTE | 2022-08-11 19:58 | EDPHYS ---
Physician Documentation [facility] Name: Prabha Booker Age: 42 yrs Sex: Female : 1980 Arrival Date: 08/11/2022 Time: 15:10 Bed 20 Private MD: ED Physician Aiyana Meza HPI: 08/11 15:38 This 42 yrs old Female presents to ER via Ambulatory with complaints of Post Surgical sd2 Pain - gtube/stitch problem. 15:38 42-year-old female presents with chief complaint of postsurgical pain and issues with sd2 her G-tube. She reports she has been in and out of the hospital since May for recurrent small bowel obstructions and had the tube placed approximately a month and a half ago at [facility]. She reports she was told that the hernia mesh that she had put in over 10 years ago is liquefying and causing necrosis. She was told that the tubing was supposed to help get that out as well as for infection. She is currently on Augmentin for this and has been compliant. She reports her pain has been gradually increasing over the past few days and acutely worsened after she tripped over her attached bag and tubing earlier today. She reports she initially noticed blood in the tubing that she was able to get out of the tubing and did not have any more blood but worsening pain since then. Also reports significantly decreased output in her bag since last night when she emptied it. She reports having a fever last night. Denies any CP, SOB, vomiting or other symptoms at this time. Was on Fentanyl patches but ran out recently as well. She reports she has noticed a stitch that she is now able to see since tripping on the bag as well and that she was told she should never be able to see a stitch by her prior physician who did the procedure.. Historical: - Allergies: 15:17 No Known Drug Allergies; hb - PMHx: 15:17 Diverticulitis; Fibromyalgia; hb - PSHx: 15:17 section; gastric sleeve; hernia repair; hysterectomy; hb ROS: 15:38 Constitutional: Positive for fever, Negative for chills, and weight loss, Eyes: sd2 Negative for injury, pain, redness, and discharge, Cardiovascular: Negative for chest pain, palpitations, and edema, Respiratory: Negative for shortness of breath, cough, wheezing. Abdomen/GI: Positive for abdominal pain, NEgative for nausea, vomiting, diarrhea. MS/Extremity: Negative for injury and deformity, Skin: Negative for injury, rash, and discoloration, Neuro: Negative for headache, numbness and tingling. Exam: 15:38 Constitutional: This is a well developed, well nourished patient who is awake, alert, sd2 and in no acute distress. Head/Face: Normocephalic, atraumatic. Eyes: EOMI, normal conjunctiva bilaterally Chest/axilla: Normal chest wall appearance and motion. Nontender with no deformity. Cardiovascular: Regular rate and rhythm with a normal S1 and S2. No gallops, murmurs, or rubs. 2+ distal pulses. Respiratory: Lungs have equal breath sounds bilaterally, clear to auscultation and percussion. No rales, rhonchi or wheezes noted. No increased work of breathing, no retractions or nasal flaring. Abdomen/GI: Soft, generalized TTP. Voluntary guarding present. NO rebound. Tubing noted to LUQ of abdomen with visualized stitch above the skin surface and small amount of yellow discharge. Tubing connected remains intact with green gastric output in bag but small amount. Skin: Warm, dry with normal turgor. Normal color with no rashes, no lesions, and no evidence of cellulitis. MS/ Extremity: Pulses equal, no cyanosis. Neurovascular intact. Full, normal range of motion. Ambulatory without difficulty. Psych: Awake, alert, with orientation to person, place and time. Behavior, mood, and affect are within normal limits. Vital Signs: 15:16 BP 148 / 88; Pulse 124; Resp 18; Temp 98.4; Pulse Ox 100% on R/A; Weight 81.65 kg; hb Height 5 ft. 7 in. (170.18 cm); Pain 10/10; 16:46 BP 130 / 81; Pulse 83; Resp 16; Pulse Ox 98% on R/A; tp1 17:30 BP 134 / 90; Pulse 83; Resp 16; Pulse Ox 100% on R/A; tp1 18:20 BP 129 / 88; Pulse 88; Resp 16; Pulse Ox 100% on R/A; tp1 19:22 BP 124 / 79; Pulse 105; Resp 19; Pulse Ox 100% on R/A; ke1 20:15 Pain 5/10; ke1 20:53 BP 125 / 81; Pulse 92; Resp 18; Temp 98.2(O); Pulse Ox 100% on R/A; Pain 5/10; ke1 21:04 Pain 7/10; ke1 15:16 Body Mass Index 28.19 (81.65 kg, 170.18 cm) hb MDM: 15:23 Patient medically screened. sd2 15:38 Differential Diagnosis SBO, G-tube complication, traumatic injury, perforation, sd2 dehydration, electrolyte abnormality, postoperative pain among others. Data reviewed: vital signs, nurses notes. 19:41 Data reviewed: old medical records, lab test result(s), radiologic studies, CT scan. sd2 Counseling: I had a detailed discussion with the patient and/or guardian regarding: the historical points, exam findings, and any diagnostic results supporting the discharge/admit diagnosis, lab results, radiology results, the need for outpatient follow up, to return to the emergency department if symptoms worsen or persist or if there are any questions or concerns that arise at home. Medical screen evaluation completed. EMTALA emergency medical condition absent. ED course: Patient has been extremely difficult to pain control. Patient's fentanyl patch. 19:55 ED course: Discussed case with General Surgeon insolvency practitioner at [facility] who sd2 advises if the labs and CT look okay, no worry regarding the visible stitch and patient can be discharged to follow up with her surgeon this upcoming week in clinic. States stitch being present is normal. Patient's pain improving. To be discharged after Fentanyl patch arrives from the pharmacy and patient will not have to change it for 72 hours and her fentanyl patches should be delivered by then. Pt comfortable with plan for discharge and outpatient follow up. Verbalizes understanding of strict return precautions. . 08/11 15:33 Order name: CBC with Diff; Complete Time: 16:58 sd2 08/11 15:33 Order name: CMP; Complete Time: 17:26 sd2 08/11 15:33 Order name: Magnesium; Complete Time: 17:26 sd2 08/11 15:33 Order name: Lipase; Complete Time: 17:26 sd2 08/11 15:33 Order name: Lactate; Complete Time: 16:58 sd2 08/11 15:33 Order name: Procalcitonin; Complete Time: 18:14 sd2 08/11 15:33 Order name: CT Abd/Pelvis - IV Contrast Only; Complete Time: 18:14 sd2 Administered Medications: 15:52 Drug: Zofran (Ondansetron) 4 mg Route: IVP; Site: right antecubital; tp1 16:15 Follow up: Response: Pain is unchanged, physician notified tp1 15:54 Drug: morphine 4 mg Route: IVP; Infused Over: 4 mins; Site: right antecubital; tp1 16:15 Follow up: Response: Pain is unchanged, physician notified tp1 17:00 Drug: NS 0.9% 1000 ml Route: IV; Rate: 1 bolus; Site: left wrist; tp1 17:00 Drug: Benadryl (diphenhydrAMINE) 12.5 mg Route: IVP; Site: left wrist; tp1 18:45 Follow up: Response: Marked relief of symptoms tp1 17:03 Drug: morphine 4 mg Route: IVP; Infused Over: 4 mins; Site: left wrist; tp1 18:45 Follow up: Response: Pain is unchanged, physician notified tp1 18:32 Drug: Phenergan (promethazine) 12.5 mg Route: IVP; Site: left wrist; tp1 19:10 Follow up: Response: Nausea is decreased ke1 18:35 Drug: Dilaudid (HYDROmorphone) 0.5 mg Route: IVP; Site: left wrist; tp1 21:04 Follow up: Pain 7/10 Adult; Response: Pain is decreased ke1 19:57 Drug: Dilaudid (HYDROmorphone) 1 mg Route: IVP; Site: left wrist; ke1 20:15 Follow up: Pain 5/10 Adult; Response: Pain is decreased ke1 20:29 Drug: fentaNYL Patch 100 mcg/hr 1 patches Route: Transdermal; Site: abdomen; ke1 20:53 Drug: Zofran (Ondansetron) 4 mg Route: IVP; Site: left wrist; ke1 21:05 Follow up: Response: Nausea is decreased ke1 Disposition Summary: 08/11/22 19:57 Discharge Ordered Location: Home sd2 Problem: an acute exacerbation sd2 Symptoms: have improved sd2 Condition: Stable sd2 Diagnosis - Chronic abdominal pain sd2 - G-J Tube Malfunction sd2 Followup: sd2 - With: Private Physician - When: 2 - 3 days - Reason: Recheck today's complaints, Continuance of care, Re-evaluation by your physician Discharge Instructions: - Discharge Summary Sheet sd2 - Abdominal Pain, Adult sd2 - Percutaneous Endoscopic Jejunostomy sd2 Forms: - Medication Reconciliation Form sd2 - Thank You Letter sd2 - Antibiotic Education sd2 - Prescription Opioid Use sd2 Signatures: Dispatcher [employer] EDAnay Elizabeth RN Lupe Poon RN RN tp1 Conner Flanagan RN RN ke1 Aiyana Meza MD MD sd2 Corrections: (The following items were deleted from the chart) 15:45 15:38 42-year-old female presents with chief complaint of postsurgical pain and issues sd2 with her G-tube. She reports she has been in and out of the hospital since May for recurrent small bowel obstructions and had the tube placed approximately a month and a half ago at [facility]. She reports she was told that the hernia mesh that she had put in over 10 years ago is liquefying and causing necrosis. She was told that the tubing was supposed to help get that out as well as for infection. She is currently on Augmentin for this and has been compliant. She reports her pain has been gradually increasing over the past few days and acutely worsened after she tripped over her attached bag and tubing earlier today. She reports she initially noticed blood in the tubing that she was able to get out of the tubing and did not have any more blood but worsening pain since then. Also reports significantly decreased output in her bag since last night when she emptied it. She reports having a fever last night. Denies any CP, SOB, vomiting or other symptoms at this time. Was on Fentanyl patches but ran out recently as well. . sd2
[2022-08-11] MEDS ORDERED: HYDROMORPHONE HCL 1 MG/ML INJ ONE (20:12)
[2022-08-11] MEDS ORDERED: FENTANYL 100 MCG/PATCH TD ONE (20:14)
[2022-08-13 07:11] VITALS: O2SAT 100
[2022-08-13 07:24] VITALS: BP 125/81; TEMP 98.2
== END 2022-08-11 21:06 | disposition home or self-care (01) ==
LOC: ER 15:09
DX: K94.23 Gastrostomy malfunction (principal); R10.9 Unspecified abdominal pain
CPT/HCPCS: 36415; 74177; 80053; 83605; 83690; 83735; 84145; 85025; 99284; J1170; J1200; J2405; J2550; J7030; Q9967

== ENCOUNTER 2023-10-31 13:40 | Inpatient (IN) | payer OTHER, SELFPAY ==
[2023-10-31] MEDS ORDERED: ONDANSETRON 4 MG/2 ML VIAL ONE (15:15)
[2023-10-31] MEDS ORDERED: HYDROMORPHONE HCL 1 MG/ML INJ ONE (15:15)
[2023-10-31 16:08] LABS: Hematocrit 35.9 % (36.0-45.0); Lymphocytes % 48.9 % (15.3-44.8); MCV 83.5 fL (80-100); MPV 7.1 fL (7.6-11.3); Platelets 303 thou/uL (152-406)
[2023-10-31 16:26] LABS: Bilirubin Total 0.3 mg/dL (0.2-1.0); Potassium 3.4 mEq/L (3.5-5.1); Protein, Total 6.5 g/dL (6.4-8.2)
[2023-10-31] MEDS ORDERED: HYDROMORPHONE HCL 0.5 MG/0.5 ML INJ ONE (16:29)
--- NOTE | 2023-10-31 17:37 | RAD REPORT ---
EXAM DESCRIPTION: CT - Abdomen Pelvis W Contrast - 10/31/2023 4:55 pm CLINICAL HISTORY: Extensive bowel surgery;Abd pain COMPARISON: Abdomen Pelvis W Contrast dated 08/11/2022; Abdomen Pelvis W Contrast dated 07/14/2022 ; Abdomen Pelvis W Contrast dated 06/29/2022; Abdomen Pelvis W Contrast dated 06/06/2022 TECHNIQUE: Thin cut axial CT imaging of the abdomen and pelvis was performed following intravenous a dministration of 100 mL Isovue 300. Multiplanar reformats were generated and reviewed. All CT scans are performed using dose optimization technique as appropriate and may include automated exposure control or mA/KV adjustment according to patient size. FINDINGS: No suspicious findings in the lung bases. The liver, spleen, and pancreas show no suspicious findings. Gallbladder was surgically removed. Mild prominence of the common bile duct and central intrahepatic biliary radicles, likely related to post cholecystectomy status. Sequelae of gastric bypass. Symmetric renal function is seen with no hydronephrosis or suspicious renal mass. Segmental mild fluid distention of small bowel loops in the central abdomen and right flank, without discrete transition point. No bowel wall thickening. No free air, free fluid or inflammatory strandin g. No hernia, mass or bulky lymphadenopathy. The urinary bladder is decompressed limiting evaluation. No suspicious bony findings. IMPRESSION: Segmental mild fluid distention of small bowel loops as above, without a discrete transi tion point, suggestive of ileus. No other acute intra- abdominal process.
[2023-10-31 17:41] LABS: Specific Gravity 1.018 (1.005-1.030); Urine Bilirubin NEGATIVE (Negative); Urine Blood Negative (Negative); Urine Clarity Clear (Clear); Urine Color Light-Yellow (Yellow); Urine Glucose NEGATIVE (Negative); Urine Protein NEGATIVE (Negative); Urine Urobilinogen Normal (Normal)
--- NOTE | 2023-10-31 17:54 | EDPHYS ---
Physician Documentation [facility] Name: Prabha Booker Age: 43 yrs Sex: Female : 1980 Arrival Date: 10/31/2023 Time: 13:40 Bed 17 Private MD: ED Physician Miguel A Kyle HPI: 10/31 14:49 This 43 yrs old Female presents to ER via Ambulatory with complaints of Nausea/Vomiting.sp3 14:49 43-year-old female with history of diverticulitis, fibromyalgia, endometrial cancer sp3 with subsequent hysterectomy, bowel resection secondary to infected mesh and mesh involvement in the cancer from prior hernia surgery, cholecystectomy with multiple prior surgical anastomoses now presents for left lower quadrant abdominal pain that she states started at 3 AM this morning. She states she has had this once in the past and she had to be admitted to the ICU during that episode. She denies headache, neck pain, fever, URI symptoms, chest pain, shortness of breath, back pain, upper abdominal pain, vomiting or change in her bowel patterns which is at baseline diarrhea secondary to not having significant portion of her colon or any other signs or symptoms on ROS at this time.. Historical: - Allergies: 13:47 No Known Drug Allergies; ll1 13:51 latex adhesive; ll1 - PMHx: 13:47 Diverticulitis; Fibromyalgia; ll1 - PSHx: 13:47 section; gastric sleeve; hernia repair; hysterectomy; ll1 13:51 gastric pouch; ll1 13:56 "stomache removed"; ll1 - Immunization history:: Adult Immunizations up to date. - Social history:: Smoking status: Patient denies any tobacco usage or history of. ROS: 14:55 Constitutional: Negative for fever, chills, and weight loss, Eyes: Negative for injury, sp3 pain, redness, and discharge, ENT: Negative for injury, pain, and discharge, Neck: Negative for injury, pain, and swelling, Cardiovascular: Negative for chest pain, palpitations, and edema, Respiratory: Negative for shortness of breath, cough, wheezing, and pleuritic chest pain, Back: Negative for injury and pain, MS/Extremity: Negative for injury and deformity, Skin: Negative for injury, rash, and discoloration, Neuro: Negative for headache, weakness, numbness, tingling, and seizure, Psych: Negative for depression, anxiety, suicide ideation, homicidal ideation, and hallucinations, Allergy/Immunology: Negative for hives, rash, and allergies, Endocrine: Negative for neck swelling, polydipsia, polyuria, polyphagia, and marked weight changes, 14:55 All other systems are negative, Exam: 14:56 Constitutional: This is a well developed, well nourished patient who is awake, alert, sp3 and in no acute distress. Head/Face: Normocephalic, atraumatic. Eyes: Pupils equal round and reactive to light, extra-ocular motions intact. Lids and lashes normal. Conjunctiva and sclera are non-icteric and not injected. Cornea within normal limits. Periorbital areas with no swelling, redness, or edema. Neck: Trachea midline, no thyromegaly or masses palpated, and no cervical lymphadenopathy. Supple, full range of motion without nuchal rigidity, or vertebral point tenderness. No Meningismus. Chest/axilla: Normal chest wall appearance and motion. Nontender with no deformity. No lesions are appreciated. Cardiovascular: Regular rate and rhythm with a normal S1 and S2. No gallops, murmurs, or rubs. Normal PMI, no JVD. No pulse deficits. Respiratory: Lungs have equal breath sounds bilaterally, clear to auscultation and percussion. No rales, rhonchi or wheezes noted. No increased work of breathing, no retractions or nasal flaring. Back: No spinal tenderness. No costovertebral tenderness. Full range of motion. Skin: Warm, dry with normal turgor. Normal color with no rashes, no lesions, and no evidence of cellulitis. MS/ Extremity: Pulses equal, no cyanosis. Neurovascular intact. Full, normal range of motion. Neuro: Awake and alert, GCS 15, oriented to person, place, time, and situation. Cranial nerves II-XII grossly intact. Motor strength 5/5 in all extremities. Sensory grossly intact. Cerebellar exam normal. Normal gait. Psych: Awake, alert, with orientation to person, place and time. Behavior, mood, and affect are within normal limits. 14:56 Abdomen/GI: Patient has abdominal pain to the left lower quadrant without peritoneal signs, rebound or guarding., Vital Signs: 13:52 BP 151 / 110; Pulse 85; Resp 17; Temp 97.7; Pulse Ox 98% ; Weight 81.65 kg; Height 5 ll1 ft. 7 in. ; Pain 10/10; 16:00 BP 127 / 82; Pulse 61; Resp 16; Pulse Ox 99% on R/A; db 18:00 BP 135 / 85; Pulse 70; Resp 16; Pulse Ox 98% on R/A; db 19:00 BP 132 / 84; Pulse 67; Resp 16; Pulse Ox 97% ; bp 13:52 Body Mass Index 28.19 (81.65 kg, 170.18 cm) ll1 13:52 Pain Scale: Adult ll1 MDM: 14:07 Patient medically screened. sp3 14:57 Data reviewed: vital signs, nurses notes. ED course: 43-year-old female with PMH above sp3 and complex surgical history with multiple anastomosis. Will obtain CT scan of the abdomen pelvis with IV and p.o. contrast timed in a short run manner, laboratory values, urine analysis and administer pain and nausea control as needed. Disposition pending patient workup and patient course. I am not highly suspicious of peritonitis, sepsis, shock or any other critical pathology at this time.. 17:52 ED course: Patient has findings suggestive of early ileus on CT. Labs are all within sp3 normal limits. Will place patient on bowel rest, continue IV fluids, Ativan for anxiety control and hold all narcotics. I discussed this with Dr. Andrews and Dr. Heller who will be admitting under internal medicine.. 12 14:00 Order name: CBC with Diff; Complete Time: 16:27 sp3 10/31 14:00 Order name: CMP; Complete Time: 16:27 sp3 10/31 14:00 Order name: Lipase; Complete Time: 16:27 sp3 10/31 14:00 Order name: Urinalysis w/ reflexes; Complete Time: 17:45 sp3 10/31 18:17 Order name: Urinalysis w/ reflexes EDMS 10/31 18:18 Order name: CBC with Automated Diff EDMS 10/31 18:18 Order name: CBC with Automated Diff EDMS 10/31 18:18 Order name: Comprehensive Metabolic Panel EDMS 10/31 18:18 Order name: Comprehensive Metabolic Panel EDMS 10/31 14:00 Order name: CT Abd/Pelvis - IV Contrast Only; Complete Time: 17:39 sp3 10/31 18:17 Order name: CONS Physician Consult EDOH 10/31 14:00 Order name: IV Saline Lock; Complete Time: 15:40 sp3 10/31 14:00 Order name: Labs collected and sent; Complete Time: 16:19 sp3 10/31 15:38 Order name: Labs - recollect needed: please recollect purple top; Complete Time: 16:06 em1 Administered Medications: 15:35 Drug: Ondansetron IVP 4 mg IVP once; over 2 minutes Route: IVP; Site: right hand; db 15:35 Drug: HYDROmorphone IVP 1 mg IVP once Route: IVP; Site: right hand; db 16:18 Drug: HYDROmorphone IVP 0.5 mg IVP once Route: IVP; Site: right wrist; db 18:00 Drug: Ativan IVP 2 mg IVP once Route: IVP; Site: right hand; db 18:02 Drug: NS 0.9% IV 1000 ml IV at 75 ml/hr continuous Route: IV; Rate: 75 ml/hr; Site: db right hand; Disposition Summary: 10/31/23 17:54 Hospitalization Ordered Notes: Hospitalization Status: Observation sp3 Provider: Marcial Heller sp3 Location: Telemetry/MedSurg (observation) sp3 Condition: Stable sp3 Problem: an acute exacerbation sp3 Symptoms: have worsened sp3 Bed/Room Type: Standard sp3 Room Assignment: 228(10/31/23 18:37) em1 Diagnosis - Ileus, unspecified sp3 Forms: - Medication Reconciliation Form sp3 - SBAR form sp3 - Leadership Thank You Letter sp3 Signatures: Dispatcher [employer] Lalito Ruelas em1 Solis Munoz, RN RN ll1 Miguel A Kyle MD MD sp3 Julia Coles RN RN db Corrections: (The following items were deleted from the chart) 18:37 17:54 sp3 em1
--- NOTE | 2023-10-31 17:54 | ER ---
Nurse's Notes [facility] Name: Prabha Booker Age: 43 yrs Sex: Female : 1980 Arrival Date: 10/31/2023 Time: 13:40 Bed 17 Private MD: Diagnosis: Ileus, unspecified Presentation: 10/31 13:47 Chief complaint: Patient states: N/V with abdominal pain/distension since yesterday. ll1 Had fever but better now. Ebola Screen: Patient denies travel to an Ebola-affected area in the 21 days before illness onset. Initial Sepsis Screen: Does the patient meet any 2 criteria? No. Patient's initial sepsis screen is negative. Does the patient have a suspected source of infection? Yes: Acute abdominal pain. Risk Assessment: Do you want to hurt yourself or someone else? Patient reports no desire to harm self or others. 13:47 Method Of Arrival: Ambulatory 1 13:47 Acuity: GALINDO 3 ll1 13:52 Coronavirus screen: Vaccine status: Patient reports being unvaccinated. Client denies ll1 travel out of the [place] in the last 14 days. At this time, the client does not indicate any symptoms associated with coronavirus-19. Onset of symptoms. Triage Assessment: 13:54 General: Appears uncomfortable, Behavior is calm, cooperative, appropriate for age. ll1 Pain: Complains of pain in abdomen Pain currently is 10 out of 10 on a pain scale. Quality of pain is described as aching, crampy. GI: Reports lower abdominal pain, upper abdominal pain, diarrhea, nausea, vomiting. Historical: - Allergies: 13:47 No Known Drug Allergies; ll1 13:51 latex adhesive; ll1 - PMHx: 13:47 Diverticulitis; Fibromyalgia; ll1 - PSHx: 13:47 section; gastric sleeve; hernia repair; hysterectomy; ll1 13:51 gastric pouch; ll1 13:56 "stomache removed"; ll1 - Immunization history:: Adult Immunizations up to date. - Social history:: Smoking status: Patient denies any tobacco usage or history of. Screenin:10 [facility] ED Fall Risk Assessment (Adult) History of falling in the last 3 months, db including since admission No falls in past 3 months (0 pts) Score/Fall Risk Level 0 - 2 = Low Risk Oriented to surroundings, Maintained a safe environment. Abuse screen: Denies threats or abuse. Denies injuries from another. Nutritional screening: No deficits noted. Tuberculosis screening: No symptoms or risk factors identified. Assessment: 13:57 Reassessment: Dr. Kyle assessing patient in triage. ll1 16:00 Reassessment: Patient appears in no apparent distress at this time. Patient and/or db family updated on plan of care and expected duration. Pain level reassessed. Patient is alert, oriented x 3, equal unlabored respirations, skin warm/dry/pink. ABD PAIN. General: Appears in no apparent distress. comfortable, Behavior is calm, cooperative. Neuro: Level of Consciousness is awake, alert, obeys commands, Oriented to person, place, time, situation. GI: Abdomen is flat, non-distended. 16:08 Reassessment: PATIENT FINISHED DRINKING CT CONTRAST. db 16:10 Pain: Pain currently is 9 out of 10 on a pain scale. db 17:00 Reassessment: Patient appears in no apparent distress at this time. Patient and/or db family updated on plan of care and expected duration. Pain level reassessed. Patient is alert, oriented x 3, equal unlabored respirations, skin warm/dry/pink. PATIENT IS RESTING. 18:00 Reassessment: Patient appears in no apparent distress at this time. Patient and/or db family updated on plan of care and expected duration. Pain level reassessed. Patient is alert, oriented x 3, equal unlabored respirations, skin warm/dry/pink. STATES MEDICATION IS NOT HELPING. 18:51 Reassessment: ATTEMPTED TO GIVE REPORT NURSE STATES IS UNABLE TO TAKE REPORT. IT IS db SHIFT CHANGE AND DOES NOT HAVE SHIFT ASSIGNMENTS. Vital Signs: 13:52 BP 151 / 110; Pulse 85; Resp 17; Temp 97.7; Pulse Ox 98% ; Weight 81.65 kg; Height 5 ll1 ft. 7 in. ; Pain 10/10; 16:00 BP 127 / 82; Pulse 61; Resp 16; Pulse Ox 99% on R/A; db 18:00 BP 135 / 85; Pulse 70; Resp 16; Pulse Ox 98% on R/A; db 19:00 BP 132 / 84; Pulse 67; Resp 16; Pulse Ox 97% ; bp 13:52 Body Mass Index 28.19 (81.65 kg, 170.18 cm) ll1 13:52 Pain Scale: Adult ll1 ED Course: 13:41 Patient arrived in ED. kj1 13:47 Arm band placed on. ll1 13:48 Triage completed. ll1 13:49 Miguel A Kyle MD is Attending Physician. sp3 14:41 Patient placed in an exam room, on a stretcher. iw 14:56 Julia Coles, RN is Primary Nurse. db 15:35 Inserted saline lock: 24 gauge in right hand, using aseptic technique. db 16:10 Inserted saline lock: 22 gauge in right wrist, using aseptic technique. db 16:56 CT Abd/Pelvis - IV Contrast Only In Process Unspecified. EDMS 17:53 Marcial Heller MD is Hospitalizing Provider. sp3 19:51 No provider procedures requiring assistance completed. Patient admitted, IV remains in bp place. Administered Medications: 15:35 Drug: Ondansetron IVP 4 mg IVP once; over 2 minutes Route: IVP; Site: right hand; db 15:35 Drug: HYDROmorphone IVP 1 mg IVP once Route: IVP; Site: right hand; db 16:18 Drug: HYDROmorphone IVP 0.5 mg IVP once Route: IVP; Site: right wrist; db 18:00 Drug: Ativan IVP 2 mg IVP once Route: IVP; Site: right hand; db 18:02 Drug: NS 0.9% IV 1000 ml IV at 75 ml/hr continuous Route: IV; Rate: 75 ml/hr; Site: db right hand; Outcome: 17:54 Decision to Hospitalize by Provider. sp3 19:50 Admitted to Med/surg accompanied by tech, via wheelchair, room 228, with chart, Report bp called to LASHAY CARLOS 19:50 Condition: stable 19:50 Instructed on the need for admit, 20:43 Patient left the ED. pf1 Signatures: Dispatcher [employer] EDMS Erin Chatterjee RN RN iw Peltier, Brian, RN RN bp Jackson, Kandis kj1 Solis Munoz RN RN ll1 Migeul A Kyle MD MD sp3 Julia Coles, RN RN Ashly Salgado RN RN pf1 Corrections: (The following items were deleted from the chart) 13:53 13:47 Chief complaint: Patient states: N/V ll1 ll1
[2023-10-31] MEDS ORDERED: NA CHLORIDE 0.9% 1,000 ML ONE (18:07)
[2023-10-31] MEDS ORDERED: LORazepam 2 MG/ML VIAL ONE (18:07)
--- NOTE | 2023-10-31 18:12 | P.HP ---
Certification for Inpatient Patient admitted to: Inpatient With expected LOS: >2 Midnights Practitioner: I am a practitioner with admitting privileges, knowledge of patient current condition, hospital course, and medical plan of care. Services: Services provided to patient in accordance with Admission requirements found in Title 42 Section 412.3 of the Code of Federal Regulations Patient History Date of Service: 10/31/23 History of Present Illness: 43-year-old female with history of diverticulitis, fibromyalgia, endometrial cancer status post hysterectomy, bowel resection secondary to infected mesh and mesh involvement in the cancer from prior hernia surgery, cholecystectomy with multiple prior surgical anastomoses now presents for left lower quadrant abdominal pain which started early this morning. Denies any chest pain or shortness of breath. No fever or chills. Pain is located in left lower quadrant, sharp, 8 out of 10 in severity, non radiating, associated with nausea and vomiting. Denies any hematemesis. Denies any constipation/diarrhea. Patient was assessed in the ER and had a CT which was consistent with ileus/partial small bowel obstruction anticipated for further management and pain control. Allergies No Known Drug Allergies Allergy (Unverified 02/25/15 02:09) Unknown Home medications list reviewed: Yes - Past Medical/Surgical History Past Medical History: Reviewed- Non-Contributory -: Fibromyalgia, anxiety, Past Surgical History: Reviewed- Non-Contributory -: Status post multiple abdominal surgery - Family History Family History: Reviewed- Non-Contributory - Social History Smoking Status: Never smoker Review of Systems 10-point ROS is otherwise unremarkable General: Weakness Eyes: Unremarkable ENT: Unremarkable Respiratory: Unremarkable Cardiovascular: Unremarkable Gastrointestinal: Nausea, Vomiting Genitourinary: Dysuria Physical Examination - Vital Signs Temperature: 98.2 F Blood Pressure: 126/76 Pulse: 78 Respirations: 18 Pulse Ox (%): 94 - Physical Exam General: Alert, Oriented x3, Cooperative, Mild distress HEENT: Atraumatic, Normocephalic Neck: Supple, No Thyromegaly Respiratory: Clear to auscultation bilaterally, Normal air movement Cardiovascular: Regular rate/rhythm, Normal S1 S2, No gallops Capillary refill: <2 Seconds Gastrointestinal: W/out hepatosplenomegaly, Distended, Tenderness Musculoskeletal: No clubbing, No swelling Integumentary: No rashes, No tenderness/swelling Neurological: Normal speech, Normal strength at 5/5 x4 extr, Sensation intact, Cranial nerves 3-12 intact, Other (Anxious) Lymphatics: No axilla or inguinal lymphadenopathy - Studies Laboratory Data (last 24 hrs) 10/31/23 10/31/23 15:49 15:49 WBC 4.10 L Hgb 11.6 L Hct 35.9 L Plt Count 303 Sodium 140 Potassium 3.4 L BUN 5 L Creatinine 0.41 L Glucose 88 Total Bilirubin 0.3 AST 22 ALT 39 Alkaline Phosphatase 128 H Lipase 45 Imagings Data: EXAM DESCRIPTION: CT - Abdomen Pelvis W Contrast - 10/31/2023 4:55 pm CLINICAL HISTORY: Extensive bowel surgery;Abd pain COMPARISON: Abdomen Pelvis W Contrast dated 08/11/2022; Abdomen Pelvis W Contrast dated 07/14/2022; Abdomen Pelvis W Contrast dated 06/29/2022; Abdomen Pelvis W Contrast dated 06/06/2022 TECHNIQUE: Thin cut axial CT imaging of the abdomen and pelvis was performed following intravenous administration of 100 mL Isovue 300. Multiplanar reformats were generated and reviewed. All CT scans are performed using dose optimization technique as appropriate and may include automated exposure control or mA/KV adjustment according to patient size. FINDINGS: No suspicious findings in the lung bases. The liver, spleen, and pancreas show no suspicious findings. Gallbladder was surgically removed. Mild prominence of the common bile duct and central intrahepatic biliary radicles, likely related to post cholecystectomy status. Sequelae of gastric bypass. Symmetric renal function is seen with no hydronephrosis or suspicious renal mass. Segmental mild fluid distention of small bowel loops in the central abdomen and right flank, without discrete transition point. No bowel wall thickening. No free air, free fluid or inflammatory stranding. No hernia, mass or bulky lymphadenopathy. The urinary bladder is decompressed limiting evaluation. No suspicious bony findings. IMPRESSION: Segmental mild fluid distention of small bowel loops as above, without a discrete transition point, suggestive of ileus. No other acute intra- abdominal process. Assessment and Plan - Problems (Diagnosis) (1) Ileus Current Visit: Yes Status: Acute Plan: Pain control Monitor closely IV hydration Started on clear liquid diet and advance as tolerated Surgical consult appreciated (2) Partial small bowel obstruction Current Visit: Yes Status: Acute Plan: Started on clear liquid diet Surgical consult IV hydration Pain control Awaiting further clinical response (3) Fibromyalgia Current Visit: Yes Status: Chronic (4) Anxiety Current Visit: Yes Status: Chronic (5) Hypokalemia Current Visit: Yes Status: Acute Plan: Potassium replaced Will monitor electrolytes in a.m. (6) Elevated LFTs Current Visit: Yes Status: Acute Plan: Monitor LFTs CT did not show any acute changes (7) Anemia of chronic disease Current Visit: Yes Status: Chronic Plan: Monitor CBC Transfuse as needed if hemoglobin is less than 7 Discharge Plan: Home Plan to discharge in: 48 Hours - Advance Directives Does patient have a Living Will: No Does patient have a Durable POA for Healthcare: No - Code Status/Comfort Care Code Status: Full Code Time Spent Managing Pts Care (In Minutes): 48
[2023-10-31] MEDS ORDERED: ACETAMINOPHEN 500 MG TAB PO PRN (18:13)
[2023-10-31] MEDS ORDERED: ONDANSETRON 4 MG/2 ML VIAL IV PRN (18:13)
[2023-10-31] MEDS: NA CHLORIDE 0.9% 1,000 ML IV SCH (19:00)
[2023-10-31] MEDS: KETOROLAC 30 MG/ML INJ IV PRN (20:48)
[2023-10-31] MEDS ORDERED: ALPRAZOLAM 1 MG TABLET PO PRN (20:48)
[2023-10-31 20:51] VITALS: O2SAT 97
[2023-10-31] MEDS: ENOXAPARIN 40 MG/0.4 ML SQ SCH (20:51)
[2023-10-31] MEDS: HYDROMORPHONE HCL 1 MG/ML INJ IV PRN (22:04)
[2023-10-31] MEDS: HYDROCODONE/APAP 10/325 TAB PO SCH (22:05)
[2023-10-31 22:26] VITALS: BMI 28.2
[2023-10-31] MEDS: ALPRAZOLAM 1 MG TABLET PO SCH (22:51)
[2023-11-01] MEDS: HYDROCODONE/APAP 10/325 TAB PO SCH ×6 (01:55→20:53)
[2023-11-01 02:49] LABS: Absolute Lymphocytes (CBC) 3.1 K/uL (0.7-4.9); Hematocrit 32.6 % (36.0-45.0); Lymphocytes % 59.9 % (15.3-44.8); MCV 84.3 fL (80-100); MPV 7.3 fL (7.6-11.3); Platelets 271 thou/uL (152-406); RBC Red Blood Cell Count 3.86 M/uL (3.86-4.86)
[2023-11-01 03:03] LABS: Albumin 2.6 g/dL (3.4-5.0); Bilirubin Total 0.3 mg/dL (0.2-1.0); Potassium 3.2 mEq/L (3.5-5.1); Protein, Total 5.9 g/dL (6.4-8.2)
[2023-11-01] MEDS: HYDROMORPHONE HCL 1 MG/ML INJ IV PRN ×4 (03:54→23:46)
[2023-11-01] MEDS: NA CHLORIDE 0.9% 1,000 ML IV SCH ×2 (06:13→19:49)
[2023-11-01] MEDS: PANTOPRAZOLE 40MG TABLET PO SCH ×2 (08:10→16:35)
[2023-11-01] MEDS: ENOXAPARIN 40 MG/0.4 ML SQ SCH (08:10)
[2023-11-01] MEDS: KETOROLAC 30 MG/ML INJ IV PRN (08:10)
[2023-11-01] MEDS: POTASSIUM CL 40 MEQ in NA CHLORIDE 0.9% 500 ML IV SCH ×2 (08:17→12:00)
[2023-11-01] MEDS ORDERED: ALPRAZOLAM 1 MG TABLET PO SCH (09:00)
[2023-11-01] MEDS: ALPRAZOLAM 1 MG TABLET PO SCH ×2 (09:19→20:53)
--- NOTE | 2023-11-01 11:20 | P.PN ---
Subjective Date of Service: 11/01/23 Pt is resting comfortably in bed. She complains of abdominal pain. Pt has history of about 9 abdominal surgeries. She is NPO and passing gas. No BM yet. Will follow up KUB. No other issues. Review of Systems 10-point ROS is otherwise unremarkable General: Unremarkable Eyes: Unremarkable ENT: Unremarkable Respiratory: Unremarkable Cardiovascular: Unremarkable Gastrointestinal: Abdominal Pain Genitourinary: Unremarkable Musculoskeletal: Unremarkable Integumentary: Unremarkable Neurological: Unremarkable Lymphatics: Unremarkable Physical Examination - Vital Signs Temperature: 97.0 F Blood Pressure: 136/67 Pulse: 64 Respirations: 16 Pulse Ox (%): 97 - Physical Exam General: Alert, In no apparent distress, Oriented x3, Cooperative HEENT: Atraumatic, Normocephalic, PERRLA Neck: Supple, 2+ carotid pulse no bruit Respiratory: Clear to auscultation bilaterally, Normal air movement Cardiovascular: No edema, Normal pulses, Normal S1 S2 Capillary refill: <2 Seconds Gastrointestinal: Normal bowel sounds, Soft and benign, Non-distended Musculoskeletal: No clubbing, No swelling Integumentary: No rashes, No breakdown Neurological: Normal gait, Normal strength at 5/5 x4 extr, Sensation intact Lymphatics: No axilla or inguinal lymphadenopathy - Studies Laboratory Data (last 24 hrs) 10/31/23 10/31/23 15:49 15:49 WBC 4.10 L Hgb 11.6 L Hct 35.9 L Plt Count 303 Sodium 140 Potassium 3.4 L BUN 5 L Creatinine 0.41 L Glucose 88 Total Bilirubin 0.3 AST 22 ALT 39 Alkaline Phosphatase 128 H Lipase 45 Assessment And Plan - Plan Partial SBO / Ileus: Per CT abd. Pt complains of abd pain. Will keep NPO, continue IVF and follow up serial KUB. Gen Surgery is following Hypokalemia: K is 3.2. Will replete and monitor Abd pain: Will continue cautious dose of prn pain med. Anxiety: Continue prn ativan. Anemia od chronic disease; Will monitor H/H. Hgb is 10.5. Transaminitis: Alk phos is 128 <- 109. Will continue IVF and monitor. Fibromyalgia: Continue supportive care DVT ppx: SCD Code: full Discharge Plan: Home Plan to discharge in: 24 Hours - Code Status/Comfort Care Code Status Assessed: Yes Code Status: Full Code
--- NOTE | 2023-11-01 13:36 | RAD REPORT ---
EXAM DESCRIPTION: RAD - Abdomen 1 View (KUB) - 11/01/2023 1:30 pm CLINICAL HISTORY: Ileus Pain FINDINGS: There is a diffuse gaseous distention of large and small bowel without clear organized pat tern. No suspicious calcifications. No significant bony findings. No evidence of pneumoperitoneum. IMPRESSION: Mild to moderate diffuse ileus pattern suspected.
--- NOTE | 2023-11-01 19:11 | CON ---
Date of Consultation: 11/01/2023 Reason For Service: Abdominal pain. History Of Present Illness: This is the case of a 43-year-old patient, admitted to the hospital last night with abdominal pain. Etiology of that is unknown, but she has extensive surgical history and trying to even understand some of the surgeries she is mentioning to me, but she mentioned gastric ba riatric surgery. She mentioned small bowel resection, her entire large bowel resection. She mention ed also more bowel resected after a hernia was repaired and a mesh was removed. She mentioned also h istory for endometrial cancer and then she mentioned about some kind of pouch that she in the stomach, cholecystectomies, all those, and then she comes with abdominal pain, so the CAT scan di d not show any specific obstruction. She was admitted for observation. She is asking for Dilaudid f or pain control and a surgical consult was obtained to make sure there was no other problems in the [facility] that maybe masked by this pain medication. She denies any dysuria, hematuria, hematochezia , melena. Denies any recent travel out of the country. Denies any family member sick at home. She state nausea and she states the pain is just generalized. No specific areas. Allergies: NONE. Medications: Reviewed. Medical History: Fibromyalgia, anxiety, and all as above. Past Surgical History: See above. Family History: Noncontributory. Social History: She does not smoke. She does not drink alcohol. Review of Systems: See above. All 10 points otherwise unremarkable. Physical Examination: General: The patient is awake, alert. HEENT: Pupils are equal and reactive. Anicteric. Neck: Supple. Chest: Clear. Heart: S1, S2. Abdomen: Soft and depressible. Mild generalized tenderness. No guarding or rebound. Extremities: Good capillary refill. Rectal: Deferred. Breasts: Deferred. Pelvic: Deferred. Laboratory Data: Blood work shows WBC count of 4 with hemoglobin of 11, platelets of 203, potassium 3.4, bicarb is 24, creatinine is 0.41. The CAT scan of the abdomen and pelvis interpreted by Dr. Orlando an from last night shows sequela of gastric bypass surgery. She has segmental fluid distention of s mall bowel without discrete transition point. No bowel wall thickening. No free air. No free fluid . No inflammatory stranding. No hernias. No mass. No bulky lymphadenopathy. Plan: Abdominal pain of unknown origin. From the surgical standpoint, there is no surgical interven tion planned at this moment. She was advised to follow with her previous surgeons. May start the di et as clinically allow. FRANCISCO/JEANNE Voice ID: [id number] Report ID: [id number]
[2023-11-01] MEDS ORDERED: FENTANYL CITR 100 MCG/2 ML IV ONE (20:25)
[2023-11-02] MEDS: HYDROCODONE/APAP 10/325 TAB PO SCH ×7 (02:22→21:31)
[2023-11-02] MEDS: KETOROLAC 30 MG/ML INJ IV PRN ×2 (02:25→22:18)
[2023-11-02] MEDS: NA CHLORIDE 0.9% 1,000 ML IV SCH ×2 (05:52→14:34)
[2023-11-02 07:15] LABS: Absolute Lymphocytes (CBC) 2.3 K/uL (0.7-4.9); Hematocrit 32.3 % (36.0-45.0); Lymphocytes % 52.8 % (15.3-44.8); MCV 84.6 fL (80-100); MPV 7.5 fL (7.6-11.3); Platelets 253 thou/uL (152-406); RBC Red Blood Cell Count 3.81 M/uL (3.86-4.86)
[2023-11-02 07:26] LABS: Potassium 4.1 mEq/L (3.5-5.1)
[2023-11-02] MEDS: ALPRAZOLAM 1 MG TABLET PO SCH (08:27)
[2023-11-02] MEDS: PANTOPRAZOLE 40MG TABLET PO SCH ×2 (08:27→16:38)
[2023-11-02] MEDS: ENOXAPARIN 40 MG/0.4 ML SQ SCH (08:28)
[2023-11-02] MEDS: FENTANYL CITR 100 MCG/2 ML IV PRN ×4 (08:28→22:17)
[2023-11-02 09:36] LABS: Blood Morphology Comment NOT SEEN (NOT SEEN); Platelet Estimate ADEQ
[2023-11-02] MEDS ORDERED: MIDAZOLAM HCL 2 MG/2 ML INJ IV ONE ×2 (09:42→16:08)
--- NOTE | 2023-11-02 09:42 | P.PN ---
Subjective Date of Service: 11/02/23 Pt is resting comfortably in bed. She complains of abdominal pain. Pt has history of about 9 abdominal surgeries. She is complains of abdominal pain. Will continue CLD. No BM yet. Will follow up KUB. No surgical intervention at this time. No other issues. Review of Systems 10-point ROS is otherwise unremarkable General: Unremarkable Eyes: Unremarkable ENT: Unremarkable Respiratory: Unremarkable Cardiovascular: Unremarkable Gastrointestinal: Unremarkable Genitourinary: Unremarkable Musculoskeletal: Unremarkable Integumentary: Unremarkable Neurological: Unremarkable Lymphatics: Unremarkable Physical Examination - Vital Signs Temperature: 97.7 F Blood Pressure: 123/78 Pulse: 78 Respirations: 16 Pulse Ox (%): 95 - Physical Exam General: Alert, In no apparent distress, Oriented x3, Cooperative HEENT: Atraumatic, Normocephalic, PERRLA Neck: Supple, 2+ carotid pulse no bruit Respiratory: Clear to auscultation bilaterally, Normal air movement Cardiovascular: No edema, Normal pulses, Normal S1 S2 Capillary refill: <2 Seconds Gastrointestinal: Hypoactive, Soft and benign, Non-distended, Tenderness Musculoskeletal: No clubbing, No swelling Integumentary: No rashes, No breakdown Neurological: Normal gait, Normal speech, Normal strength at 5/5 x4 extr Lymphatics: No axilla or inguinal lymphadenopathy Assessment And Plan - Plan Partial SBO / Ileus: Per CT abd. Pt complains of abd pain. Will start CLD, continue IVF and follow up serial KUB. Gen Surgery is following. No surgical intervention at this time Hypokalemia: K is 4.1<- 3.2. Will replete and monitor Abd pain: Will continue cautious dose of prn pain med. Pt states that her pain is controlled with combination of fentanyl and versed. Anxiety: Continue prn ativan. Anemia od chronic disease: Will monitor H/H. Hgb is 10.4. Transaminitis: Alk phos is 128 <- 109. Will continue IVF and monitor. Fibromyalgia: Continue supportive care DVT ppx: SCD Code: full
--- NOTE | 2023-11-02 11:21 | RAD REPORT ---
EXAM DESCRIPTION: RAD - Abdomen 1 View (KUB) - 11/02/2023 11:11 am CLINICAL HISTORY: Partial SBO COMPARISON: Abdomen 1 View (KUB) dated 11/01/2023; Abdomen Pelvis W Contrast dated 10/31/2023 TECHNIQUE: Single AP view of the abdomen. FINDINGS: Partial improvement of small bowel gaseous distention in the central abdomen. Mild distent ion and mild stool burden seen throughout the colon. No air-fluid levels, free air, or pneumatosis. N o suspicious calcifications. No significant bony abnormality. IMPRESSION: Partial improvement of small bowel gaseous distension.
[2023-11-02] MEDS ORDERED: NALOXONE 0.4 MG/ML VIAL IV PRN (16:13)
[2023-11-03] MEDS: HYDROCODONE/APAP 10/325 TAB PO SCH ×3 (02:25→10:00)
[2023-11-03] MEDS: NA CHLORIDE 0.9% 1,000 ML IV SCH ×4 (02:30→17:00)
[2023-11-03 03:30] LABS: Absolute Lymphocytes (CBC) 2.4 K/uL (0.7-4.9); Hematocrit 31.8 % (36.0-45.0); Lymphocytes % 50.3 % (15.3-44.8); MCV 84.2 fL (80-100); Platelets 238 thou/uL (152-406); RBC Red Blood Cell Count 3.78 M/uL (3.86-4.86)
[2023-11-03] MEDS: FENTANYL CITR 100 MCG/2 ML IV PRN ×2 (03:32→06:52)
[2023-11-03] MEDS: KETOROLAC 30 MG/ML INJ IV PRN ×2 (06:52→23:39)
[2023-11-03] MEDS: PANTOPRAZOLE 40MG TABLET PO SCH ×2 (07:30→19:27)
[2023-11-03] MEDS: ENOXAPARIN 40 MG/0.4 ML SQ SCH (09:00)
--- NOTE | 2023-11-03 10:47 | P.PN ---
Subjective Date of Service: 11/03/23 Pt is resting comfortably in bed. She is asking for more pain meds for abdominal pain. Pt has history of about 9 abdominal surgeries. She is complains of abdominal pain. Will continue CLD. No BM yet. Will follow up KUB. No surgical intervention at this time. No other issues. Review of Systems 10-point ROS is otherwise unremarkable General: Unremarkable Eyes: Unremarkable ENT: Unremarkable Respiratory: Unremarkable Cardiovascular: Unremarkable Gastrointestinal: Abdominal Pain Genitourinary: Unremarkable Musculoskeletal: Unremarkable Integumentary: Unremarkable Neurological: Unremarkable Lymphatics: Unremarkable Physical Examination - Vital Signs Temperature: 98.4 F Blood Pressure: 118/69 Pulse: 80 Respirations: 16 Pulse Ox (%): 96 - Physical Exam General: Alert, In no apparent distress, Oriented x3 HEENT: Atraumatic, Normocephalic, PERRLA Neck: Supple, 2+ carotid pulse no bruit Respiratory: Clear to auscultation bilaterally, Normal air movement Cardiovascular: No edema, Normal pulses, Regular rate/rhythm, Normal S1 S2 Capillary refill: <2 Seconds Gastrointestinal: Normal bowel sounds, Soft and benign, Non-distended Musculoskeletal: No clubbing, No swelling Integumentary: No rashes, No breakdown Neurological: Normal gait, Normal speech, Normal strength at 5/5 x4 extr, Sensation intact Lymphatics: No axilla or inguinal lymphadenopathy Assessment And Plan - Plan Partial SBO / Ileus: Per CT abd. Pt complains of abd pain. Will start CLD, continue IVF and follow up serial KUB. Gen Surgery is following. No surgical intervention at this time Hypokalemia: K is 4.0<- 3.2. Will monitor Abd pain: Will continue cautious dose of prn pain med. Pt states that her pain is not controlled. She wants double dose of dilaudid. Anxiety: Continue prn ativan. Anemia od chronic disease: Will monitor H/H. Hgb is 10.5. Transaminitis: Alk phos is 128 <- 109. Will continue IVF and monitor. Fibromyalgia: Continue supportive care DVT ppx: SCD Code: full Dispo: Pt is asking for more pain meds.
[2023-11-03] MEDS: HYDROMORPHONE HCL 1 MG/ML INJ IV PRN ×2 (12:49→23:39)
[2023-11-03] MEDS: HYDROCODONE/APAP 5/325 MG TAB PO PRN ×2 (14:22→21:48)
[2023-11-03] MEDS ORDERED: HYDROMORPHONE HCL 2 MG/ML inj IV ONE (17:59)
[2023-11-03] MEDS ORDERED: HYDROMORPHONE HCL 1 MG/ML INJ IV ONE (19:00)
--- NOTE | 2023-11-03 20:31 | RAD REPORT ---
EXAM DESCRIPTION: RAD - Abdomen 1 View (KUB) - 11/03/2023 8:10 pm CLINICAL HISTORY: Ileus Pain COMPARISON: <Comparisons> FINDINGS: The bowel gas pattern is non-obstructive. No evidence of free air or pneumatosis. No suspi cious calcifications. No significant bony findings. IMPRESSION: Negative examination.
[2023-11-04] MEDS: HYDROCODONE/APAP 5/325 MG TAB PO PRN ×3 (04:37→18:04)
[2023-11-04] MEDS: KETOROLAC 30 MG/ML INJ IV PRN ×2 (05:43→16:42)
[2023-11-04] MEDS: HYDROMORPHONE HCL 1 MG/ML INJ IV PRN ×4 (05:43→20:53)
--- NOTE | 2023-11-04 06:43 | P.PN ---
Date of Service: 11/04/23 Subjective: Physical Exam: Vitals: reviewed GEN: Alert, oriented, NAD HEENT: Normal conjunctiva, sclera anicteric CV: Regular rate & rhythm, no edema Pulm: Nonlabored respiraitons, clear bilaterally ABD: Soft, nontender, nondistended MSK: No joint tenderness Integumentary: No rashes Neuro: Normal speech, normal affect Problem List: Partial SBO vs Ileus h/o diverticulitis Anemia of chronic disease Hypokalemia Anxiety Transaminitis Fibromyalgia Plan: CT abdomen (10/31): : Segmental mild fluid distention of small bowel loops as above, without a discrete transition point, suggestive of ileus Gen Surgery is following. No surgical intervention at this time continue IVF and follow up serial KUB. PRN analgesics / PRN antiemetics Continue prn ativan. Monitor H&H. Transfuse for hgb < 7. Continue supportive care confirm home medications, restart as appropriate continue PPI Lovenox for DVT prophylaxis
[2023-11-04 06:54] LABS: Absolute Lymphocytes (CBC) 2.6 K/uL (0.7-4.9); Hematocrit 32.6 % (36.0-45.0); MCV 85.1 fL (80-100); MPV 7.5 fL (7.6-11.3); Platelets 280 thou/uL (152-406); RBC Red Blood Cell Count 3.83 M/uL (3.86-4.86)
[2023-11-04 07:10] LABS: Potassium 3.4 mEq/L (3.5-5.1)
[2023-11-04] MEDS: ENOXAPARIN 40 MG/0.4 ML SQ SCH (09:00)
[2023-11-04] MEDS: PANTOPRAZOLE 40MG TABLET PO SCH ×3 (09:02→16:42)
[2023-11-04] MEDS: NA CHLORIDE 0.9% 1,000 ML IV SCH (13:00)
[2023-11-04 13:18] LABS: Specific Gravity 1.007 (1.005-1.030); Urine Bilirubin NEGATIVE (Negative); Urine Blood Negative (Negative); Urine Clarity Clear (Clear); Urine Color Colorless (Yellow); Urine Glucose NEGATIVE (Negative); Urine Protein NEGATIVE (Negative); Urine Urobilinogen Normal (Normal)
--- NOTE | 2023-11-04 18:07 | PN ---
Date of Progress Note: 11/04/2023 Diagnosis: Chronic abdominal pain. Subjective: This is the case of a 43-year-old patient admitted for chronic abdominal pain. The angeli ent claimed that she has had at least 30 surgeries, but she cannot describe all of them. She also st ated that she has chronic pain. She states she has been admitted at [facility], [facility], just to name a few, at [facility] and at one point they even did a study on her a bout the pain medication that she states she only can take Dilaudid because it is the only thing that can take care of her pain. Her medical doctors are working on that from a surgical standpoint. We reviewed the CAT scan with her and the abdomen is soft and depressible. She is tolerating diet. Her WBC count is 4 with hemoglobin of 10.3. Potassium 3.4, glucose 46, been replaced by the primary doc KUB recently yesterday shows per radiologist negative examination. No evidence of free air, pn eumatosis and the bowel gas pattern is nonobstructive. Plan: From the surgical standpoint, no plans. It was recommended to her as an outpatient to see her pain management doctors. Continue diet. HM/MODL Voice ID: [id number] Report ID: [id number]
[2023-11-05] MEDS: HYDROMORPHONE HCL 1 MG/ML INJ IV PRN ×2 (04:50→11:00)
[2023-11-05] MEDS: PANTOPRAZOLE 40MG TABLET PO SCH (07:58)
[2023-11-05] MEDS: HYDROCODONE/APAP 5/325 MG TAB PO PRN ×2 (07:59→13:25)
[2023-11-05] MEDS: ENOXAPARIN 40 MG/0.4 ML SQ SCH (07:59)
[2023-11-05] MEDS: NA CHLORIDE 0.9% 1,000 ML IV SCH ×2 (09:00→11:01)
[2023-11-05 10:53] VITALS: BP 150/89; TEMP 97.2
[2023-11-05 12:12] LABS: Hematocrit 33.9 % (36.0-45.0); Lymphocytes % 37.9 % (15.3-44.8); MCV 84.6 fL (80-100); MPV 7.2 fL (7.6-11.3); Platelets 249 thou/uL (152-406); RBC Red Blood Cell Count 4.01 M/uL (3.86-4.86)
[2023-11-05 12:25] LABS: Potassium 4.6 mEq/L (3.5-5.1)
== END 2023-11-05 13:29 | disposition home or self-care (01) | DRG 390 ==
LOC: ER 13:40 → 2ND 18:13
PROVIDERS: ADMIT Family Medicine; ATTEND Hospitalist
DX: K56.690 Other partial intestinal obstruction (principal); M79.7 Fibromyalgia; F41.9 Anxiety disorder, unspecified; E87.6 Hypokalemia; D63.8 Anemia in other chronic diseases classified elsewhere; R74.01 Elevation of levels of liver transaminase levels; R79.89 Other specified abnormal findings of blood chemistry; Z98.84 Bariatric surgery status; Z90.49 Acquired absence of other specified parts of digestive tract; Z91.040 Latex allergy status; Z90.710 Acquired absence of both cervix and uterus
CPT/HCPCS: 36415; 74018; 74177; 80048; 80053; 81003; 82947; 83690; 85025; 99285; J1170; J1650; J2250; J2405; J3010; J3480; J7030; J7040; Q9967

== ENCOUNTER 2024-05-18 11:54 | Emergency (ER) | payer OTHER ==
[2024-05-18] MEDS ORDERED: NA CHLORIDE 0.9% 1,000 ML ONE (12:39)
[2024-05-18] MEDS ORDERED: MORPHINE 4 MG/ML SYR ONE (12:39)
[2024-05-18] MEDS ORDERED: PROMETHAZINE INJ 25 MG/ML AMP ONE (12:39)
[2024-05-18 12:43] LABS: Absolute Eosinophils 0.1 K/uL (0-0.5); Absolute Lymphocytes (CBC) 2.1 K/uL (0.7-4.9); Absolute Monocytes 0.4 K/uL (0.1-1.3); Absolute Neutrophil 2.5 K/uL (1.8-8.0); Basophils % 0.3 % (0-1.3); Hematocrit 41.7 % (36.0-45.0); Hemoglobin 13.4 g/dL (12.0-15.0); Lymphocytes % 40.6 % (15.3-44.8); MCH 28.1 pg (27.0-35.0); MCHC 32.1 g/dL (32.0-36.0); MCV 87.8 fL (80-100); MPV 7.2 fL (7.6-11.3); Monocytes % 8.4 % (3.3-12.3); Neutrophils % 49.7 % (41.7-73.7); Nucleated Red Blood Cells % 0.1 % (0-0); Platelets 441 thou/uL (152-406); RBC Red Blood Cell Count 4.75 M/uL (3.86-4.86); Red Cell Distribution Width 17.2 % (12.1-15.2)
[2024-05-18 13:02] LABS: Albumin 3.9 g/dL (3.4-5.0); Albumin/Globulin Ratio 0.9 (1.1-1.8); Anion Gap 8.2 mEq/L (5.0-15.0); Bilirubin Total 0.4 mg/dL (0.2-1.0); Globulin 4.2 g/dL (2.3-3.5); Potassium 3.2 mEq/L (3.5-5.1); Protein, Total 8.1 g/dL (6.4-8.2)
[2024-05-18] MEDS ORDERED: HYDROMORPHONE HCL 1 MG/ML INJ ONE (13:29)
--- NOTE | 2024-05-18 13:59 | RAD REPORT ---
EXAM DESCRIPTION: CT - Abdomen Pelvis W Contrast - 05/18/2024 1:38 pm CLINICAL HISTORY: Abdominal pain COMPARISON: 2022 TECHNIQUE: Computed axial tomography of the abdomen pelvis was obtained. 100 cc Isovue-300 was admin istered intravenously. Oral contrast was not requested which limits evaluation of bowel and appendix All CT scans are performed using dose optimization technique as appropriate and may include automated exposure control or mA/KV adjustment according to patient size. FINDINGS: Cholecystectomy. Mild prominence of biliary tree. The spleen, pancreas, adrenals and left kidney unremarkable. 2 millimeter calculus right kidney. No hydronephrosis. Postsurgical changes stomach and colon. No evidence of diverticulitis. Fluid is present within transverse colon which is upper limits caliber. Hysterectomy. No adnexal mass. IMPRESSION: Fluid is present within transverse colon which is upper limits caliber. This may indicat e an ileus. Mild prominence of biliary tree can be a normal finding this patient status post cholecystectomy. Thi s should be correlated clinically and with appropriate lab values
[2024-05-18 14:18] LABS: Specific Gravity 1.013 (1.005-1.030); Urine Bilirubin NEGATIVE (Negative); Urine Blood Negative (Negative); Urine Clarity Clear (Clear); Urine Color Light-Yellow (Yellow); Urine Glucose NEGATIVE (Negative); Urine Ketones NEGATIVE (Negative); Urine Microscopic Reflex YN NO UMIC; Urine Nitrite NEGATIVE (Negative); Urine Protein NEGATIVE (Negative); Urine Urobilinogen Normal (Normal); Urine pH 6.5 (5.0-7.0)
--- NOTE | 2024-05-18 16:51 | EDPHYS ---
Physician Documentation [facility] Name: Prabha Booker Age: 43 yrs Sex: Female : 1980 Arrival Date: 05/18/2024 Time: 11:54 Bed 3 Private MD: ED Physician David Rodriguez HPI: 05/18 12:37 This 43 yrs old Female presents to ER via Ambulatory with complaints of Abdominal Pain, rn Vomiting/Diarrhea. 12:37 The patient presents to the emergency department with nausea, vomiting, diarrhea, rn abdominal pain. 12:37 Onset: The symptoms/episode began/occurred 3 day(s) ago. Possible causes: unknown. The rn symptoms are aggravated by nothing. The symptoms are alleviated by nothing. Severity of symptoms: At their worst the symptoms were moderate in the emergency department the symptoms are unchanged. The patient has experienced similar episodes in the past. Patient reports 3 days of abdominal pain/vomiting/diarrhea. Has had this multiple times in the past. Has had multiple abdominal surgeries. States all started after traumatic abdominal injury with multiple surgeries. Patient states this happens sometimes, unable to take her medication and gets admitted for pain control. States has been admitted several times for this, her surgeon in [place] is at [facility] and states no surgical intervention required and needs to be admitted for pain control and vomiting.. Historical: - Allergies: 12:35 latex adhesive; ph - PMHx: 12:35 Diverticulitis; Fibromyalgia; ph - PSHx: 12:35 section; gastric pouch; gastric sleeve; hernia repair; hysterectomy; ph - Immunization history:: Adult Immunizations unknown. - Infectious Disease History:: Denies. - Social history:: Smoking status: Patient denies any tobacco usage or history of. - Family history:: not pertinent. - Hospitalizations: : No recent hospitalization is reported. ROS: 12:37 Constitutional: Negative for fever, chills, and weight loss, Cardiovascular: Negative rn for chest pain, palpitations, and edema, Respiratory: Negative for shortness of breath, cough, wheezing, and pleuritic chest pain, Abdomen/GI: Positive for abdominal pain with nausea/vomiting/diarrhea MS/Extremity: Negative for injury and deformity, Skin: Negative for injury, rash, and discoloration, Neuro: Positive for generalized weakness Exam: 12:37 Constitutional: This is a well developed, well nourished patient who is awake, alert, rn and in no acute distress. ENT: Dry mucous membranes Cardiovascular: Regular rate and rhythm. No pulse deficits. Respiratory: No increased work of breathing, no retractions or nasal flaring. Abdomen/GI: Soft, mild left lower quadrant tenderness. MS/ Extremity: Pulses equal, no cyanosis. Neuro: Awake and alert, GCS 15 Vital Signs: 12:34 BP 124 / 79; Pulse 84; Resp 18; Temp 98.1; Pulse Ox 99% on R/A; Weight 76.66 kg; Height ph 5 ft. 7 in. ; 15:33 Pulse 66; Resp 16; Pulse Ox 100% on R/A; ld1 16:57 BP 129 / 72; Pulse 64; Resp 17; Pulse Ox 99% on R/A; ld1 12:34 Body Mass Index 26.47 (76.66 kg, 170.18 cm) ph MDM: 12:04 Patient medically screened. rn 16:05 ED course: Patient given droperidol after stated Dilaudid did not help. Patient resting rn and pain-free at this time.. 16:48 Differential diagnosis: Nonspecific abd pain, gastritis, pancreatitis, viral rn gastroenteritis, gastroenteritis, Colitis, flareup of chronic abdominal pain, bowel obstruction, ileus. Data reviewed: vital signs, nurses notes, lab test result(s), radiologic studies, CT scan, and as a result, I will admit patient. Consideration of Admission/Observation Escalation of care including admission/observation considered. Counseling: I had a detailed discussion with the patient and/or guardian regarding the historical points, exam findings, and any diagnostic results supporting the discharge/admit diagnosis, lab results, radiology results. Response to treatment: the patient's symptoms have markedly improved after treatment, the patient's condition has returned to base line, the patient is now symptom free. ED course: CT shows bowel upper limits of normal, no definitive ileus or bowel obstruction. Patient states this is usually the finding and just needs pain and nausea control. Offered her admission and patient does not want to stay in the hospital. Requesting more pain medication and would like to go home. She had never received droperidol so gave her dose 2.5 mg, woke up with pain resolved and feels much better. No vomiting while in the ER. Patient wants to go home and understands risks of going home without observation for possible early ileus. Family member in room for this conversation as well. Will discharge with return precautions.. 05/18 12:06 Order name: CBC with Diff; Complete Time: 13:25 rn 05/18 12:06 Order name: CMP; Complete Time: 13:25 rn 05/18 12:06 Order name: Lipase; Complete Time: 13:25 rn 05/18 12:06 Order name: Test, Urine; Complete Time: 14:26 rn 05/18 12:06 Order name: Urinalysis w/ reflexes; Complete Time: 14:26 rn 05/18 12:06 Order name: CT Abd/Pelvis - IV Contrast Only; Complete Time: 14:01 rn 05/18 12:06 Order name: IV Saline Lock; Complete Time: 12:30 rn 05/18 12:06 Order name: Labs collected and sent; Complete Time: 12:30 rn Administered Medications: 12:33 CANCELLED (Duplicate Order): ondansetron 4 mg IVP once; over 2 minutes rn 12:45 Drug: NS 0.9% IV 1000 ml IV at 1 bolus Per protocol; 1000 mL bolus Route: IV; Rate: 1 ph bolus; Site: left hand; 12:45 Drug: Promethazine IVP 12.5 mg IVP once Route: IVP; Site: right hand; ph 15:02 Follow up: Response: No adverse reaction ko1 12:45 Drug: morphine IVP or IV 4 mg IVP once over 4 mins Route: IVP; Infused Over: 4 mins; ph Site: right hand; 15:02 Follow up: Response: No adverse reaction ko1 13:55 Drug: HYDROmorphone IVP 1 mg IVP once Route: IVP; Site: left antecubital; rs5 15:02 Follow up: Response: No adverse reaction ko1 15:17 Drug: Droperidol IVP 2.5 mg IVP once Route: IVP; Site: right wrist; ld1 15:32 Follow up: Response: No adverse reaction ko1 Disposition Summary: 05/18/24 16:50 Discharge Ordered Notes: Location: Home rn Problem: new rn Symptoms: have improved rn Condition: Stable rn Diagnosis - Abdominal pain, unspecified rn - Vomiting, unspecified rn Followup: rn - With: Private Physician - When: As needed - Reason: Recheck today's complaints, Re-evaluation by your physician Discharge Instructions: - Discharge Summary Sheet rn - Abdominal Pain, Adult rn - Nausea and Vomiting, Adult rn Forms: - Medication Reconciliation Form rn - Antibiotic research attorney - Prescription Opioid Use rn - Patient Portal Instructions rn - Leadership Thank You Letter rn Signatures: Dispatcher [employer] EDMS David Rodriguez MD MD rn Hall, Patricia, RN RN Hilda Vallejo RN RN ld1 Igor Moses RN RN rs5 Jessica Eric RN ko1 Corrections: (The following items were deleted from the chart) 12:33 12:06 Ondansetron IVP 4 mg IVP once; over 2 minutes ordered. rn rn
--- NOTE | 2024-05-18 16:51 | ER ---
Nurse's Notes [facility] Name: Prabha Booker Age: 43 yrs Sex: Female : 1980 Arrival Date: 05/18/2024 Time: 11:54 Bed 3 Private MD: Diagnosis: Abdominal pain, unspecified;Vomiting, unspecified Presentation: 05/18 12:34 Chief complaint: Patient states: LLQ pain and swelling, N/V/D x 3 days, hx of multiple ph abdominal surgeries. Coronavirus screen: Vaccine status: Patient reports receiving the 2nd dose of the covid vaccine. Ebola Screen: No symptoms or risks identified at this time. Initial Sepsis Screen: Does the patient meet any 2 criteria? No. Patient's initial sepsis screen is negative. Does the patient have a suspected source of infection? No. Patient's initial sepsis screen is negative. Risk Assessment: Do you want to hurt yourself or someone else? Patient reports no desire to harm self or others. Onset of symptoms was May 18, 2024. 12:34 Method Of Arrival: Ambulatory ph 12:34 Acuity: GALINDO 3 ph Historical: - Allergies: 12:35 latex adhesive; ph - PMHx: 12:35 Diverticulitis; Fibromyalgia; ph - PSHx: 12:35 section; gastric pouch; gastric sleeve; hernia repair; hysterectomy; ph - Immunization history:: Adult Immunizations unknown. - Infectious Disease History:: Denies. - Social history:: Smoking status: Patient denies any tobacco usage or history of. - Family history:: not pertinent. - Hospitalizations: : No recent hospitalization is reported. Screenin:33 [facility] ED Fall Risk Assessment (Adult) History of falling in the last 3 months, ld1 including since admission No falls in past 3 months (0 pts) Confusion or Disorientation No (0 pts) Intoxicated or Sedated No (0 pts) Impaired Gait No (0 pts) Mobility Assist Device Used No (0 pt) Altered Elimination No (0 pt) Score/Fall Risk Level 0 - 2 = Low Risk. [facility] ED Fall Risk Assessment (Adult) Score/Fall Risk Level 0 - 2 = Low Risk Oriented to surroundings, Maintained a safe environment, Educated pt \T\ family on fall prevention, incl call for assistance when getting out of bed, Assessed \T\ reinforced patient's understanding of fall precautions, Provided non-skid footwear, Hourly rounding (assess needs \T\ fall precautionary measures) done, Used ambulatory aids as needed (educated on \T\ assisted with), Used gait belt as appropriate. Abuse screen: Denies threats or abuse. Denies injuries from another. Nutritional screening: No deficits noted. Tuberculosis screening: No symptoms or risk factors identified. Assessment: 15:33 General: Appears in no apparent distress. uncomfortable, Behavior is calm, cooperative, ld1 agitated. Pain: Complains of pain in abdomen Pain does not radiate. Pain currently is 7 out of 10 on a pain scale. Quality of pain is described as throbbing, Pain began suddenly, Is continuous. Neuro: Level of Consciousness is awake, alert, obeys commands, Oriented to person, place, time, situation. Cardiovascular: Capillary refill < 3 seconds Patient's skin is warm and dry. Rhythm is sinus rhythm. Respiratory: Airway is patent Respiratory effort is even, unlabored. GI: Abdomen is round non-distended, Bowel sounds present X 4 quads. Abd is soft Abd is non tender Reports nausea, vomiting. : No signs and/or symptoms were reported regarding the genitourinary system. EENT: No signs and/or symptoms were reported regarding the EENT system. Derm: No signs and/or symptoms reported regarding the dermatologic system. Musculoskeletal: No signs and/or symptoms reported regarding the musculoskeletal system. 16:57 Reassessment: Patient appears in no apparent distress at this time. No changes from ld1 previously documented assessment. Patient and/or family updated on plan of care and expected duration. Pain level reassessed. Patient states symptoms have improved. Vital Signs: 12:34 BP 124 / 79; Pulse 84; Resp 18; Temp 98.1; Pulse Ox 99% on R/A; Weight 76.66 kg; Height ph 5 ft. 7 in. ; 15:33 Pulse 66; Resp 16; Pulse Ox 100% on R/A; ld1 16:57 BP 129 / 72; Pulse 64; Resp 17; Pulse Ox 99% on R/A; ld1 12:34 Body Mass Index 26.47 (76.66 kg, 170.18 cm) ph ED Course: 11:57 Patient arrived in ED. mr 12:04 David Rodriguez MD is Attending Physician. rn 12:15 Missed attempt(s): 24 gauge in right forearm. Bleeding controlled, band aid applied, bc6 catheter tip intact. 12:30 CBC with Diff Sent. bc6 12:31 CMP Sent. bc6 12:31 Lipase Sent. bc6 12:31 Initial lab(s) drawn, by me, sent to lab. Inserted saline lock: 24 gauge in right bc6 wrist, using aseptic technique. Blood collected. 12:35 Triage completed. ph 12:36 Arm band placed on Patient placed in waiting room, Patient notified of wait time. Labs ph ordered per protocol. Drawn by ED staff. 13:40 CT Abd/Pelvis - IV Contrast Only In Process Unspecified. EDMS 14:50 Kendra Asif, RN is Primary Nurse. ph 15:21 Client placed on continuous cardiac and pulse oximetry monitoring. NIBP monitoring ph applied. product support representative on. Pulse ox on. NIBP on. 15:33 No provider procedures requiring assistance completed. ld1 15:33 Patient has correct armband on for positive identification. Placed in gown. Bed in low ld1 position. Call light in reach. Side rails up X2. product support representative on. Door closed. Noise minimized. Warm blanket given. 16:58 IV discontinued, intact, bleeding controlled, No redness/swelling at site. ld1 Administered Medications: 12:33 CANCELLED (Duplicate Order): ondansetron 4 mg IVP once; over 2 minutes rn 12:45 Drug: NS 0.9% IV 1000 ml IV at 1 bolus Per protocol; 1000 mL bolus Route: IV; Rate: 1 ph bolus; Site: left hand; 12:45 Drug: Promethazine IVP 12.5 mg IVP once Route: IVP; Site: right hand; ph 15:02 Follow up: Response: No adverse reaction ko1 12:45 Drug: morphine IVP or IV 4 mg IVP once over 4 mins Route: IVP; Infused Over: 4 mins; ph Site: right hand; 15:02 Follow up: Response: No adverse reaction ko1 13:55 Drug: HYDROmorphone IVP 1 mg IVP once Route: IVP; Site: left antecubital; rs5 15:02 Follow up: Response: No adverse reaction ko1 15:17 Drug: Droperidol IVP 2.5 mg IVP once Route: IVP; Site: right wrist; ld1 15:32 Follow up: Response: No adverse reaction ko1 Medication: 16:58 VIS not applicable for this client. ld1 Outcome: 16:50 Discharge ordered by . rn 16:58 Discharged to home ambulatory, with family, ld1 16:58 Condition: stable 16:58 Discharge instructions given to patient, family, Instructed on discharge instructions, follow up and referral plans. Demonstrated understanding of instructions, follow-up care, 16:58 Patient left the ED. ld1 Signatures: Dispatcher [employer] EDCA Apryl Osullivan, Reg Reg mr David Rodriguez MD MD rn Hall, Patricia, RN RN ph Sims, Lauren, RN RN ld1 Jessica Eric RN RN [email or web address] Igor Moses RN RN rs5 Sonya Hardne 6
[2024-05-18 23:17] VITALS: TEMP 98.1
[2024-05-18 23:40] VITALS: BP 129/72; O2SAT 99
== END 2024-05-18 16:58 | disposition home or self-care (01) ==
LOC: ER 11:54
DX: R10.32 Left lower quadrant pain (principal); R11.10 Vomiting, unspecified; Z98.84 Bariatric surgery status
CPT/HCPCS: 85025; 36415; 81025; 81003; 83690; 80053; 74177; Q9967; J2550; J1170; J7030; 99285